=== PATIENT | male | born 1955 | race Caucasian/White ===

== ENCOUNTER 2023-07-23 07:40 | Outpatient (OUT) | payer MEDICARE, OTHER, SELFPAY ==
--- NOTE | 2023-07-23 08:25 | CA_ITS ---
Patient: EDIE POTTER Exam Date: 07/23/2023 : 1955 Gender:M Ordering : VIPUL CARVAJAL Admission #: [id number] Family : DR EDWARD KIMBROUGH . Order #: [id number] CLICK HERE TO VIEW EXAM ECHOCARDIOGRAM REPORT PROCEDURE: CA ECHO DOPPLER COMPLETE INDICATIONS: Diastolic heart failure, heart ablation, hypertension, diabetes COMPARISON: None. DESCRIPTION: COMPLETE ECHOCARDIOGRAM Real-time transthoracic echocardiography with 2D, M-mode, spectral and color flow Doppler performed. QUALITY: Technical quality was adequate. LEFT VENTRICLE: Normal chamber size. Mild concentric left ventricular hypertrophy. Normal systolic function. LV EF: Normal left ventricular ejection fraction, (>55%). DIASTOLIC: Diastolic function is indeterminate. ATRIAL SEPTUM: Visually appears intact. LEFT ATRIUM: Moderate dilatation. RIGHT ATRIUM: Mild dilatation. RIGHT VENTRICLE: Normal chamber size. Normal right ventricular systolic function. TRICUSPID VALVE: Normal mobility and thickness. No stenosis with trivial regurgitation. Unable to assess right-sided pressures due to lack of measurable tricuspid regurgitation. MITRAL VALVE: Normal mobility and thickness. No evidence of mitral valve stenosis. There is no mitral annular calcification. Mild mitral regurgitation. AORTIC VALVE: Normal trileaflet appearance. Normal leaflet mobility. No evidence of aortic valve stenosis. Focal calcification. Trivial aortic regurgitation. AORTIC ROOT: Normal diameter and appearance. PULMONIC VALVE: Not well visualized. No stenosis. Trivial regurgitation. PERICARDIUM: No evidence of pericardial effusion. IVC: Collapses with inspirations. IVC is dilated (2.4 cm) PLEURA: CONCLUSION: 1. Mild concentric left ventricular hypertrophy with normal systolic function. LVEF is 55 to 60%. 2. Normal right ventricular size with normal systolic function. 3. Mild to moderate biatrial dilatation. 4. Mild mitral regurgitation. 5. Unable to assess right-sided pressures due to lack of measurable tricuspid regurgitation. Adult Echocardiography Procedure Report Left Ventricle LVEDD (3.7 - 5.6 cm): 5.16 cm LVESD (2.2 - 4.0 cm): 3.16 cm LVIVS thickness (0.6 - 1.2 cm): 1.30 cm LVPW thickness (0.5 - 1.0 cm): 1.15 cm e': 0.10 m/s E - e': 8.65 LVOT Max Gradient: 1.78 mm[Hg] LVOT Area (cm2): 0.67 m/s Peak Velocity (LVOT): 0.67 m/s LVOT Diameter 2.66 cm Left Atrium LA Volume Index (2D A2C): 66.53 ml/m2 Left Atrium Systolic Dimension: 5.84 cm Mitral Valve MV E to A Ratio: 1.67 Mitral Valve A-Wave Peak Velocity: 0.49 m/s Mitral Valve E-Wave Peak Velocity: 0.83 m/s Right Ventricle Aorta AO Root Diam: 3.52 cm Ascending Ao Diam: 3.57 cm Aortic Valve AoV Area (Peak Luis Antonio): 3.89 cm2, 3.89 cm2 Peak Velocity(Antegrade Flow): 0.95 m/s Peak Gradient(Antegrade Flow): 3.63 mm[Hg] Tricuspid Valve Pulmonic Valve Peak Velocity: 0.91 m/s Peak Gradient: 3.09 mm[Hg], 3.48 mm[Hg] Right Atrium Right Atrium Systolic Pressure: 68.19 ml, 68.19 ml Dictated by: Benja Celis M.D. on 07/24/2023 at 18:04 Approved by: Benja Celis M.D. on 07/24/2023 at 18:07
== END 2023-07-23 07:41 | disposition home or self-care (01) ==
LOC: CARD 07:45
PROVIDERS: PCP Family Medicine; Visit Provider Internal Medicine Cardiovascular Disease
DX: I50.32 Chronic diastolic (congestive) heart failure (principal); I34.0 Nonrheumatic mitral (valve) insufficiency; I51.7 Cardiomegaly
CPT/HCPCS: 93306

== ENCOUNTER 2024-06-25 16:22 | Outpatient (OUT) | payer MEDICARE, OTHER, SELFPAY ==
[2024-06-25 16:50] LABS: Basophils Percent Auto 0.1 % (0.2-2.0); Eosinophils Absolute Auto 0.2 10^3/uL (0.0-0.7); Eosinophils Percent Auto 2.1 % (0.9-7.0); Hemoglobin 12.8 g/dL (14.0-18.0); Immature Granulocytes Abs Auto 0.01 10^3/uL (0.00-0.03); Immature Granulocytes Pct Auto 0.1 % (0.0-0.5); Lymphocytes Absolute Auto 1.5 10^3/uL (1.2-3.8); Lymphocytes Percent Auto 20.4 % (20.5-60.0); Mean Corpuscular HGB Conc 32.8 g/dL (29.9-35.2); Mean Corpuscular Hemoglobin 28.8 pg (25.9-34.0); Mean Corpuscular Volume 87.6 fL (80.0-94.0); Mean Platelet Volume 10.4 fL (9.5-13.5); Monocytes Absolute Auto 0.5 10^3/uL (0.3-0.8); Monocytes Percent Auto 7.6 % (1.7-12.0); Neutrophils Percent Auto 69.7 % (43.0-75.0); Platelet Count 179 10^3/uL (150-450); Red Blood Count 4.45 10^6/uL (4.70-6.10); Red Cell Distribution Width 13.2 % (11.0-15.0); White Blood Count 7.1 10^3/uL (4.0-11.0)
[2024-06-25 17:30] LABS: Anion Gap 8.2; BUN Creatinine Ratio 16.5; Carbon Dioxide 33.7 mmol/L (21.0-32.0); Chloride 103 mmol/L (98-107); Estimated GFR (African America >60 (>=60); Estimated GFR (Non-African Ame >60 (>=60); Glucose 116 mg/dL (74-106); Potassium 3.9 mmol/L (3.5-5.1); Sodium 141 mmol/L (136-145)
== END 2024-06-25 16:23 | disposition home or self-care (01) ==
PROVIDERS: PCP Family Medicine; Visit Provider Internal Medicine Cardiovascular Disease
DX: I48.0 Paroxysmal atrial fibrillation (principal)
CPT/HCPCS: 36415; 80048; 85025

== ENCOUNTER 2024-08-12 08:50 | Outpatient (OUT) | payer MEDICARE, OTHER, SELFPAY ==
--- NOTE | 2024-08-12 08:56 | CA_ITS ---
Patient Name: EDIE POTTER MR#: [id number] : 1955 Exam Date: 08/12/2024 Ordering Doctor: NGHIA AGGARWAL CNP ECHOCARDIOGRAM REPORT PROCEDURE: CA ECHO DOPPLER COMPLETE INDICATIONS: Atrial fibrillation/flutter COMPARISON: None. DESCRIPTION: COMPLETE ECHOCARDIOGRAM Real-time transthoracic echocardiography with 2D, M-mode, spectral and color flow Doppler performed. QUALITY: Technical quality was good. LEFT VENTRICLE: Normal chamber size. Mild concentric left ventricular hypertrophy. Global left ventricular systolic function is normal. LV EF: Estimated left ventricular ejection fraction is 60-65%. DIASTOLIC: Grade II diastolic dysfunction. ATRIAL SEPTUM: LEFT ATRIUM: Moderate dilatation. RIGHT ATRIUM: Mild dilatation. RIGHT VENTRICLE: Normal chamber size. Normal right ventricular systolic function. TRICUSPID VALVE: Normal mobility and thickness. No stenosis with trivial regurgitation. Mild pulmonary hypertension. RVSP 36 mmHg MITRAL VALVE: Normal mobility and thickness. No evidence of mitral valve stenosis. There is no mitral annular calcification. Mild mitral regurgitation. AORTIC VALVE: Normal trileaflet appearance. No visible sclerosis. Normal leaflet mobility. No evidence of aortic valve stenosis. Mild aortic regurgitation. AORTIC ROOT: Mild dilatation measuring 4.1 cm. The ascending aorta is dilated measuring 3.9 cm. PULMONIC VALVE: Normal thickness and mobility. No stenosis. Trivial regurgitation. PERICARDIUM: No evidence of pericardial effusion. IVC: Collapses with inspirations. Mild dilatation measuring 2.3cm. PLEURA: CONCLUSION: 1. Mild concentric left ventricular hypertrophy with normal systolic function. LVEF is 60 to 65%. 2. Normal right ventricular size and systolic function. 3. Grade 2 diastolic dysfunction. 4. Mild to moderate biatrial dilatation. 5. Mild mitral and aortic regurgitation. 6. Mildly elevated right-sided pressures. 7. Mildly dilated aortic root and ascending aorta. Adult Echocardiography Procedure Report Left Ventricle LVEDD (3.7 - 5.6 cm): 5.40 cm LVESD (2.2 - 4.0 cm): 3.88 cm LVIVS thickness (0.6 - 1.2 cm): 1.32 cm LVPW thickness (0.5 - 1.0 cm): 1.16 cm e': 0.09 m/s E - e': 11.10 LVOT Max Gradient: 3.46 mm[Hg] LVOT Area (cm2): 0.93 m/s Peak Velocity (LVOT): 0.93 m/s Mean Velocity (LVOT): 0.70 m/s LVOT Diameter 2.60 cm Left Ventricular Ejection Fraction: 60-65 % Left Atrium LA Volume Index (2D A2C): 63.57 ml/m2 Left Atrium Systolic Dimension: 5.01 cm Mitral Valve MV E to A Ratio: 1.72 Mitral Valve A-Wave Peak Velocity: 0.60 m/s Mitral Valve E-Wave Peak Velocity: 1.03 m/s Right Ventricle RV Internal Diastolic Dimension: 4.07 cm Aorta AO Root Diam: 4.09 cm Ascending Ao Diam: 3.88 cm Aortic Valve AoV Area (Peak Luis Antonio): 3.51 cm2, 3.51 cm2 AoV Area (VTI): 3.42 cm2, 3.42 cm2 Deceleration [place]: 1.69 m/s2 Pressure Half-Time: 609.88 ms Peak Velocity(Antegrade Flow): 1.40 m/s Peak Gradient(Antegrade Flow): 7.89 mm[Hg] Mean Velocity(Antegrade Flow): 0.99 m/s Mean Gradient(Antegrade Flow): 4.43 mm[Hg] Velocity Time Integral: 38.13 cm Tricuspid Valve Peak Velocity (Regurgitant Flow): 2.67 m/s, 2.49 m/s, 2.53 m/s Pulmonic Valve Mean Gradient: 2.42 mm[Hg], 1.64 mm[Hg] Mean Velocity: 0.73 m/s, 0.60 m/s Peak Velocity: 0.93 m/s Peak Gradient: 4.39 mm[Hg], 2.66 mm[Hg] Right Atrium Right Atrium Systolic Pressure: 85.45 ml, 85.45 ml Dictated by: Benja Celis M.D. on 08/12/2024 at 18:54 Approved by: Benja Celis M.D. on 08/12/2024 at 18:58
== END 2024-08-12 08:51 | disposition home or self-care (01) ==
LOC: CARD 08:52
PROVIDERS: PCP Family Medicine; Visit Provider Nurse Practitioner Family
DX: I48.0 Paroxysmal atrial fibrillation (principal)
CPT/HCPCS: 93306

== ENCOUNTER 2024-12-09 12:10 | Outpatient (OUT) | payer MEDICARE, OTHER, SELFPAY ==
--- OUTSIDE RECORDS SUMMARY | 2024-12-09 12:15 | XMS_ITS | CCD ---
Author Organization [facility] Inform ion Partnership [facility] Care Team Providers Care General Accountant Name Role Phone DEEP KIMBROUGH Referring Unavailable NORBERTO MEADOWS Admitting Unavailable NORBERTO MEADOWS Attending Unavailable DEEP KIMBROUGH Primary Care Unavailable LUIS E, DR LEON Primary Care Unavailable IVELISSE LAST Attending Unavailable IVELISSE LAST Admitting Unavailable LUIS E, DR LEON Admitting Unavailable LUIS E, DR LEON Attending Unavailable LUIS E, DR LEON Consulting Unavailable LUIS E, DR ELON Primary Care Unavailable Deep Kimbrough MD Unavailable [phone] Aston Nolasco DO Unavailable [phone] Nghia Ritter MD Unavailable Deep Kimbrough MD Primary Care Provider Deep Kimbrough MD Unavailable Deep Kimbrough MD Primary Care Provider [phone] Deep Kimbrough MD Unavailable [phone] Deep Kimbrough MD Primary Care Provider NORBERTO MEADOWS Referring Unavailable NORBERTO MEADOWS Referring Unavailable MIKY CHARLTON Attending Unavailable VIPUL CARVAJAL Attending Unavailable IVELISSE LAST Attending Unavailable NGHIA RITTER Attending Unavailable NORBERTO MEADOWS Attending Unavailable NORBERTO MEADOWS Attending Unavailable NORBERTO MEADOWS Admitting Unavailable Filemon Ugarte Attending Unavailable Filemon Ugarte Admitting Unavailable NO FAMILY, PHYSICIAN Primary Care Unavailable DEEP KIMBROUGH Attending Unavailable LEEANN BRIDGES Attending Unavailable DEEP KIMBRUOGH Attending Unavailable FILEMON ALVAREZ Attending Unavailable DEEP KIMBROUGH Referring Unavailable ASTON NOLASCO Attending Unavailable DEEP KIMBROUGH Attending Unavailable FILEMON ALVAREZ Attending Unavailable DEEP KIMBROUGH Attending Unavailable Medications Current Medications Medication Drug Class(es) Dates Sig (Normalized) Sig (Original) amLODIPine 10 mg oral tablet (17 sources) Dihydropyridine Calcium Channel Rui take 1 tablet by mouth once daily amLODIPine (Norvasc) 10 MG tablet Take 10 mg by mouth 1 (one) time each day at the same time. Active apixaban 5 mg oral tablet (17 sources) Factor Xa Inhibitor Start: 3 take 1 tablet by mouth in the morning Eliquis 5 MG tablet Take 5 mg by mouth in the morning and 5 mg before bedtime. 04/04/2023 Active cholecalciferol 0.25 mg oral capsule (17 sources) Vitamin D take 1 capsule by mouth in the morning cholecalciferol (Vitamin D-3) 250 MCG (91805 UT) capsule Take 1 capsule by mouth in the morning and 1 capsule before bedtime. Active Elastic Bandages & Supports ([employer] Firm Compression Socks) misc (17 sources) Start: 3 Elastic Bandages & Supports ([employer] Firm Compression Socks) misc Indications: Venous (peripheral) insufficiency Knee high, 20-30 mmHg Put on in AM and take off in PM daily. 4 each 1 09/17/2023 Active hydroCHLOROthiazide 25 mg / losartan potassium 100 mg oral tablet (17 sources) Thiazide Diuretic, Angiotensin 2 Receptor Rui Start: 3 take 1 tablet by mouth in the morning losartan-hydroCHLO ROthiazide (Hyzaar) 100-25 MG tablet Take 1 tablet by mouth in the morning. 04/03/2023 Active labetalol hydrochloride 200 mg oral tablet (17 sources) beta-Adrenergic Rui take 1 tablet by mouth every twelve hours labetalol (Normodyne) 200 MG tablet Take 200 mg by mouth every 12 (twelve) hours. Active Magnesium (17 sources) take 1 capsule by mouth once daily Magnesium 400 MG capsule Take 1 capsule by mouth 1 (one) time each day at the same time. Active Multiple Vitamin (multivitamin) capsule (17 sources) take 1 capsule by mouth once daily Multiple Vitamin (multivitamin) capsule Take 1 capsule by mouth 1 (one) time each day at the same time. Active rosuvastatin calcium 10 mg oral tablet (17 sources) HMG-CoA Reductase Inhibitor Start: take 1 tablet by mouth in the morning rosuvastatin (Crestor) 10 MG tablet Indications: Mixed dyslipidemia (CMS/HCC) Take 1 tablet (10 mg) by mouth in the morning. 90 tablet 3 05/29/2023 Active Completed/Discontinued Medications Medication Drug Class(es) Dates Sig (Normalized) Sig (Original) amiodarone hydrochloride 200 mg oral tablet (2 sources) Antiarrhythmic Start: 09-27-2024 End: 09-30-2024 take 1 tablet by mouth once daily amiodarone (Pacerone) 200 MG tablet Take 200 mg by mouth Daily 09/27/2024 09/30/2024 Discontinued (Therapy completed) Problems Active Problems Problem Classification Problem Date Documented Da te Episodic/Chronic Administrative/social admission (2 sources) Advance directive discussed with patient; Translations: [Other specified counseling] 10-20-2024 Episodic Cardiac dysrhythmias (20 sources) Chronic atrial fibrillation; Translations: [Chronic atrial fibrillation, unspecified] Onset: 05-22-2023 05-22-2023 Chronic Cataract (18 sources) Bilateral age-related nuclear cataracts; Translations: [Age-related nuclear cataract, bilateral] Onset: 08-18-2023 08-18-2023 Chronic Chronic kidney disease (20 sources) Chronic kidney disease stage 2; Translations: [Chronic kidney disease, stage 2 (mild)] Onset: 05-22-2023 05-22-2023 Chronic Conduction disorders (17 sources) Right bundle branch block; Translations: [Unspecified right bundle-branch block] Onset: 05-22-2023 05-22-2023 Chronic Congestive heart failure; nonhypertensive (20 sources) Chronic diastolic heart failure; Translations: [Chronic diastolic (congestive) heart failure] Onset: 01-06-2023 05-22-2023 Chronic Diabetes mellitus with complications (20 sources) Type 2 diabetes mellitus; Translations: [Type 2 diabetes mellitus with diabetic chronic kidney disease] Onset: 05-22-2023 09-21-2023 Chronic Diabetes mellitus without complication (20 sources) Diabetic on diet only; Translations: [Type 2 diabetes mellitus without complications] Onset: 08-18-2023 08-18-2023 Chronic Disorders of lipid metabolism (20 sources) Dyslipidemia; Translations: [Mixed hyperlipidemia] Onset: 12-28-2019 Resolved: 10-23-2023 05-22-2023 Chronic Essential hypertension (20 sources) Benign essential hypertension; Translations: [Essential (primary) hypertension] Onset: 01-06-2023 05-22-2023 Chronic Headache; including migraine (1 source) Headache; including migraine; Translations: [HEADACHE UNSPECIFIED] Onset: 02-22-2022 Heart valve disorders (20 sources) Aortic valve disorder; Translations: [Nonrheumatic aortic valve disorder, unspecified] Onset: 01-06-2023 05-22-2023 Chronic Hypertension with complications and secondary hypertension (20 sources) Hypertensive renal disease; Translations: [Hypertensive chronic kidney disease with stage 1 through stage 4 chronic kidney disease, or unspecified chronic kidney disease] Onset: 09-26-2015 05-22-2023 Chronic Nutritional deficiencies (17 sources) Vitamin D deficiency; Translations: [Vitamin D deficiency, unspecified] Onset: 05-22-2023 05-22-2023 Chronic Other aftercare (1 source) Encounter for follow-up examination after completed treatment for conditions other than malignant neoplasm; Translations: [Encounter for follow-up examination after completed treatment for conditions other than malignant neoplasm] Onset: 09-29-2024 Episodic Other and ill-defined heart disease (19 sources) Cardiomegaly; Translations: [Cardiomegaly] Onset: 05-22-2023 05-22-2023 Chronic Other and ill-defined heart disease (17 sources) Cardiomegaly; Translations: [Cardiomegaly] Onset: 09-26-2015 05-29-2023 Chronic Other nutritional; endocrine; and metabolic disorders (20 sources) Morbid obesity; Translations: [Morbid (severe) obesity due to excess calories] Onset: 05-22-2023 05-22-2023 Chronic Other nutritional; endocrine; and metabolic disorders (2 sources) Severe obesity; Translations: [Class 2 severe obesity with serious comorbidity and body mass index (BMI) of 39.0 to 39.9 in adult, unspecified obesity type (CMS/HCC)] 11-05-2024 Chronic Elizabeth-; endo-; and myocarditis; cardiomyopathy (except that caused by tuberculosis or sexually transmitted disease) (2 sources) Cardiomyopathy in diseases classified elsewhere; Translations: [Cardiomyopathy in diseases classified elsewhere] Onset: 06-23-2024 Chronic Pulmonary heart disease (20 sources) Pulmonary hypertension; Translations: [Pulmonary hypertension, unspecified] Onset: 01-06-2023 05-22-2023 Chronic Residual codes; unclassified (19 sources) 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; Translations: [Dependence on other enabling machines and devices] Onset: 05-22-2023 05-22-2023 Chronic Residual codes; unclassified (19 sources) Obstructive sleep apnea syndrome; Translations: [Obstructive sleep apnea (adult) (pediatric)] Onset: 05-22-2023 05-22-2023 Chronic Residual codes; unclassified (1 source) Pain, unspecified; Translations: [PAIN UNSPECIFIED] Onset: 02-22-2022 Episodic Unclassified (2 sources) CONTACT W/AND (SUSP) EXPOS COVID-19; Translations: [CONTACT W/AND (SUSP) EXPOS COVID-19] Onset: 02-22-2022 Unclassified (2 sources) Other persistent atrial fibrillation; Translations: [Other persistent atrial fibrillation] Onset: 01-06-2023 Viral infection (1 source) COVID-19; Translations: [COVID-19] Onset: 02-22-2022 Past or Other Problems Problem Classification Problem Date Documented Date Episodic/Chronic Blindness and vision defects (18 sources) Amblyopia of right eye; Translations: [Unspecified amblyopia, right eye] Onset: 08-18-2023 08-18-2023 Episodic Genitourinary symptoms and ill-defined conditions (19 sources) Microalbuminuria; Translations: [Proteinuria, unspecified] Onset: 05-22-2023 05-22-2023 Episodic Mood disorders (3 sources) Mood disorders Onset: 11-01-2024 11-01-2024 Other diseases of veins and lymphatics (17 sources) Peripheral venous insufficiency; Translations: [Venous insufficiency (chronic) (peripheral)] Onset: 05-22-2023 05-22-2023 Episodic Other diseases of veins and lymphatics (2 sources) Venous insufficiency (chronic) (peripheral); Translations: [Venous insufficiency (chronic) (peripheral)] Onset: 01-06-2023 Episodic Other eye disorders (18 sources) Dry eyes; Translations: [Dry eye syndrome of bilateral lacrimal glands] Onset: 08-18-2023 08-18-2023 Episodic Other non-epithelial cancer of skin (17 sources) History of malignant basal cell neoplasm of skin; Translations: [Personal history of other malignant neoplasm of skin] Onset: 01-06-2023 05-29-2023 Episodic Other nutritional; endocrine; and metabolic disorders (17 sources) Body mass index 30+ - obesity; Translations: [Body mass index (BMI) 37.0-37.9, adult] Onset: 10-23-2023 Resolved: 09-22-2024 10-23-2023 Chronic Other screening for suspected conditions (not mental disorders or infectious disease) (18 sources) Patient encounter status; Translations: [Encounter for screening for malignant neoplasm of colon] Onset: 08-25-2024 Resolved: 09-22-2024 08-25-2024 Episodic Other skin disorders (17 sources) Seborrheic keratosis; Translations: [Other seborrheic keratosis] Onset: 05-22-2023 05-22-2023 Episodic Residual codes; unclassified (16 sources) Family history of cancer of colon; Translations: [Family history of malignant neoplasm of digestive organs] Onset: 08-25-2024 08-25-2024 Episodic Unclassified (1 source) CONTACT W/AND (SUSP) EXPOS COVID-19; Translations: [CONTACT W/AND (SUSP) EXPOS COVID-19] Onset: 02-20-2022 Results Test Name Value Interpretation Reference Range [facility] 11-11-2024 Albumin [Mass/Vol] 4.3 g/dL Normal 3.6-5.1 [facility] Comment on above: Performed By: #### 4 , [id number] #### [facility] [address], [address] [place] [phone] Certified Lactation Educator: Trever Guillen MD #### [id number] #### [facility] [phone] Certified Lactation Educator: Krissy Pickens Albumin/Globulin [Mass ratio] 1.7 {ratio} Normal 1.0-2.5 [facility] Comment on above: Performed By: #### 4 , 6685 #### [facility] [place] [id number] [facility], [address] [place] [phone] Certified Lactation Educator: Trever Guillen MD #### [id number] #### [facility] [address] [place] [phone] Certified Lactation Educator: Krissy Pickens ALP [Catalytic activity/Vol] 73 U/L Normal 35-144 [facility] Comment on above: Performed By: #### 4 96, 0 #### [facility] [address], [address] [place] [address] Certified Lactation Educator: Trever Guillen MD #### [id number] #### [facility] [address] [place], [place] [phone] Certified Lactation Educator: Krissy Pickens ALT [Catalytic activity/Vol] 16 U/L Normal 9-46 [facility] Comment on above: Performed By: #### 4 , 0 #### [facility] [address], [address] [place] [address] Certified Lactation Educator: Trever Guillen MD #### [id number] #### [facility] [address] [place], [place] [phone] Certified Lactation Educator: Krissy Pickens AST [Catalytic activity/Vol] 15 U/L Normal 10-35 [facility] Comment on above: Performed By: #### 4 , 7599 #### [facility] [address], [address] [place] [address] Certified Lactation Educator: Trever Guillen MD #### [id number] #### [facility] [address] [place], [place] [phone] Certified Lactation Educator: Krissy Pickens Bilirubin [Mass/Vol] 0.8 mg/dL Normal 0.2-1.2 [facility] Comment on above: Performed By: #### 4 96, 0 #### [facility] [address], [address] [place] [address] Certified Lactation Educator: Trever Guillen MD #### [id number] #### [facility] [address] [place] [phone] Certified Lactation Educator: Krissy R Flati BUN/CREATININE RATIO SEE NOTE: Normal 6-22 [facility] Comment on above: Result Comment: Not Reported: BUN and Creatinine are within reference range. Performed By: #### 4 , 0 #### [facility] [address], [address] [place] [address] Certified Lactation Educator: Trever Guillne MD #### [id number] #### [facility] [address] [place] [address] Certified Lactation Educator: Krissy Parnell Flati Calcium [Mass/Vol] 9.0 mg/dL Normal 8.6-10.3 [facility] Comment on above: Performed By: #### 4 , 7599 #### [facility] [address], [address] [place] [address] Certified Lactation Educator: Trever Guillen MD #### [id number] #### [facility] [address] Certified Lactation Educator: Krissy R Flati Chloride [Moles/Vol] 105 mmol/L Normal 98-110 [facility] Comment on above: Performed By: #### 4 , 7599 #### [facility] [address], [address] [place] [address] Certified Lactation Educator: Trever Guillen MD #### [id number] #### [facility] [address] Certified Lactation Educator: Krissy Parnell Flati CO2 [Moles/Vol] 30 mmol/L Normal 20-32 [facility] Comment on above: Performed By: #### 4 , 0 #### [facility] [address], [address] [place] [address] Certified Lactation Educator: Trever Guillen MD #### [id number] #### [facility] [address] [place] [address] Certified Lactation Educator: Krissy Parnell Flati Creatinine [Mass/Vol] 0.99 mg/dL Normal 0.70-1.[address] [facility] Comment on above: Performed By: #### 4 96, 0 #### [facility] [address], [address] [place] [address] Certified Lactation Educator: Trever Guillen MD #### [id number] #### [facility] [address] [place] [phone] Certified Lactation Educator: Krissy Pickens GFR/1.73 sq M.predicted among non-blacks MDRD (S/P/Bld) [Vol rate/Area] 82 mL/min/{1.73_m2} Normal > OR = 60 [facility] Comment on above: Performed By: #### 4 , 7599 #### [facility] [address], [address] [place] [address] Certified Lactation Educator: Trever Guillen MD #### [id number] #### [facility] [address] Certified Lactation Educator: Krissy Pickens Globulin (S) [Mass/Vol] 2.5 g/dL Normal 1.9-3.7 [facility] Comment on above: Performed By: #### 4 , 7599 #### [facility] [address], [address] [place] [address] Certified Lactation Educator: Trever Guillen MD #### [id number] #### [facility] [phone] Certified Lactation Educator: Krissy Pickens Glucose [Mass/Vol] 140 mg/dL High 65-99 [facility] Comment on above: Result Comment: Fasting reference interval For someone without known diabetes, a glucose value >125 mg/dL indicates that they may have diabetes and this should be confirmed with a follow-up test. Performed By: #### 4 , 7599 #### [facility] [address], [address] [place] [address] Certified Lactation Educator: Trever Guillen MD #### [id number] #### [facility] [phone] Certified Lactation Educator: Krissy Pickens Potassium [Moles/Vol] 3.7 mmol/L Normal 3.5-5.[address] [facility] Comment on above: Performed By: #### 4 , 7599 #### [facility] [address], [address] [place] [address] Certified Lactation Educator: Trever Guillen MD #### [id number] #### [facility] [address] [place] [address] Certified Lactation Educator: Krissy Pickens Protein [Mass/Vol] 6.8 g/dL Normal 6.1-8.1 [facility] Comment on above: Performed By: #### 4 , 7599 #### [facility] [address], [address] [place] [address] Certified Lactation Educator: Trever Guillen MD #### [id number] #### [facility] [address] Certified Lactation Educator: Krissy Pickens Sodium [Moles/Vol] 143 mmol/L Normal 135-146 [facility] Comment on above: Performed By: #### 4 , 7599 #### [facility] [address], [address] [place] [address] Certified Lactation Educator: Trever Guillen MD #### [id number] #### [facility] [address] [place], [place] [phone] Certified Lactation Educator: Krissy Pickens Urea nitrogen [Mass/Vol] 16 mg/dL Normal 7-25 [facility] Comment on above: Performed By: #### 4 , 7599 #### [facility] [address], [address] [place] [address] Certified Lactation Educator: Trever Guillen MD #### [id number] #### [facility] [address] [place] [address] Certified Lactation Educator: Krissy Pickens HEMOGLOBIN A1con 11-11-2024 HEMOGLOBIN A1c 6.8 % of total Hgb High <5.7 [facility] Comment on above: Result Comment: For someone without known diabetes, a hemoglobin A1c value of 6.5% or greater indicates that they may have diabetes and this should be confirmed with a follow-up test. For someone with known diabetes, a value <7% indicates that their diabetes is well controlled and a value greater than or equal to 7% indicates suboptimal control. A1c targets should be individualized based on duration of diabetes, age, comorbid conditions, and other considerations. Currently, no consensus exists regarding use of hemoglobin A1c for diagnosis of diabetes for children. A duplicate report has been faxed to the following: Faxed to: [phone] on: 11/11/24 06:59 Performed By: #### 4 96, 0 #### [facility] [address], [address] [place] [address] Certified Lactation Educator: Trever Guillen MD #### [id number] #### [facility] [address] [place] [phone] Certified Lactation Educator: Krissy Pickens LIPID PANEL, [facility] 10-15 Cholesterol [Mass/Vol] 139 mg/dL Normal <200 [facility] Comment on above: Order Comment: FASTI NG:YES FASTING: YES Performed By: #### 4 , 7599 #### [facility] [address], [address] [place] [address] Certified Lactation Educator: Trever Guillen MD #### [id number] #### [facility] [address] [place], [place] [phone] Certified Lactation Educator: Krissy Pickens Cholesterol in HDL [Mass/Vol] 48 mg/dL Normal > OR = 40 [facility] Comment on above: Order Comment: FASTI NG:YES FASTING: YES Performed By: #### 4 , 0 #### [facility] [address], [address] [place] [address] Certified Lactation Educator: Trever Guillen MD #### [id number] #### [facility] [address] [place] [phone] Certified Lactation Educator: Krissy Pickens Cholesterol in LDL [Mass/Vol] 78 mg/dL Normal [facility] Comment on above: Order Comment: FASTI NG:YES FASTING: YES Result Comment: Refe rence range: <100 Desirable range <100 mg/dL for primary prevention; <70 mg/dL for patients with CHD or diabetic patients with > or = 2 CHD risk factors. LDL-C is now calculated using the Americo calculation, which is a validated novel method providing better accuracy than the Friedewald equation in the estimation of LDL-C. Ten KINGSLEY et al. TERRY. 2013;310(19): 3601-9459 (http://education.[employer]/faq/BZV800) Performed By: #### 4 , 0 #### [facility] [address], [address] [place] [address] Certified Lactation Educator: Trever Guillen MD #### [id number] #### [facility] [address] [place] [address] Certified Lactation Educator: Krissy Pickens Cholesterol.total/Chol esterol in HDL [Mass ratio] 2.9 {ratio} Normal <5.0 [facility] Comment on above: Order Comment: FASTI NG:YES FASTING: YES Performed By: #### 4 , 0 #### [facility] [address], [address] [place] [address] Certified Lactation Educator: Trever Guileln MD #### [id number] #### [place] [address] Certified Lactation Educator: Krissy Pickens NON HDL CHOLESTEROL 91 mg/dL (calc) Normal <130 [facility] Comment on above: Order Comment: FASTI NG:YES FASTING: YES Result Comment: For patients with diabetes plus 1 major ASCVD risk factor, treating to a non-HDL-C goal of <100 mg/dL (LDL-C of <70 mg/dL) is considered a therapeutic option. Performed By: #### 4 , 0 #### [facility] [address], [address] [place] [address] Certified Lactation Educator: Trever Guillen MD #### [id number] #### [facility] [address] [place] [phone] Certified Lactation Educator: Krissy Pickens Triglyceride [Mass/Vol] 57 mg/dL Normal <150 [facility] Comment on above: Order Comment: FASTI NG:YES FASTING: YES Performed By: #### 4 96, 1650 #### [facility] [address], [address] [place] [address] Certified Lactation Educator: Trever Guillen MD #### [id number] #### [facility] [address] [place] [address] Certified Lactation Educator: Krissy Pickens Office Visiton 10-18-2024 Follow-up visit [id number] Jj Sky 1955 M Date Provider Department Center 10/18/2024 [id number] CHARLTON Family History Problem Relation Age of Onset Other Mother Coronary artery disease Father Atrial fibrillation Sister Atrial fibrillation Brother Family Status - Relation Status Age at Mother Father Sister Brother Level of Service:14688 CT OFFICE/OUTPATIENT ESTABLISHED MOD [facility] 30 MIN Reason for Visit and Comments: Hypertension [480045] - He saw Dr. Meadows last month and told him he may increase labetalol to 400mg bid IF BP log reveals elevated BP's. He has not made the increase as he wanted to check with the doctor first. Atrial Fibrillation [80] - He remains asymptomatic, denies chest pain, SOB, palpitations, lightheadedness/syn cope, and bleeding on Eliquis. Normal [facility] PATHOLOGY REQUEST FOR LAB CO RPon 10-12-2024 PATHOLOGY REQUEST FOR LAB BRUNO [facility] Comment on above: See report. Scanned copy available in EMR. PATHOLOGY GI SPECIMEN [facility] Pathology Request for Lab Co rpon 09-29-2024 Pathology Request for Lab Bruno Normal [facility] Comment on above: Order Comment: PATHO LOGY GI SPECIMEN Result Comment: See report. Scanned copy available in EMR. PERFORMED BY: [address] [id number] PATHOLOGIST PRODUCT SALES ENGINEER DOMINIQUE TANG M.D. Performed By: #### P ATH TO [facility] #### [address] [address] Office Visiton 09-28-2024 Follow-up visit [id number] Howe 1955 M Date Provider Department Center 09/28/2024 NORBERTO HARRIS LEIGH Win Family History Problem Relation Age of Onset Other Mother Coronary artery disease Father Atrial fibrillation Sister Atrial fibrillation Brother Family Status - Relation Status Age at Mother Father Sister Brother Level of Service:37477 CT OFFICE/OUTPATIENT NEW MODERATE MDM 45 MINUTES [facility] 36on 08-27-2024 [address] Ugarte' office. [facility] 36on 08-26-2024 36 Okay to hold Eliquis 2 days prior to colonscopy. Thanks [facility] [address] Dr. Ugarte of [facility] general surgery is requesting clearance for patient to hold Eliquis prior to colonoscopy. Please advise. Thanks. [facility] Office Visiton 08-04-2024 Follow-up visit [id number] Howe 1955 M Date Provider Department Center 08/04/2024 NGHIA YANG LEIGH Win Family History Problem Relation Age of Onset Other Mother Coronary artery disease Father Atrial fibrillation Sister Atrial fibrillation Brother Family Status - Relation Status Age at Mother Father Sister Brother Level of Service:46942 CT OFFICE/OUTPATIENT ESTABLISHED MOD MDM 30 MIN Reason for Visit and Comments: Atrial Fibrillation [80] Hypertension [496175] Hyperlipidemia [182] [facility] HPon 06-30-2024 HPI: Jj Sky is a 69 y.o. male here for DCCV HPI 69 year old male patient with past medical history including PAF s/p ablation by Dr. Meadows, HTN, IVONE compliant with cpap, and hyperlipidemia seen in follow-up. Pt states that he had COVID at the beginning of May, felt like he was feeling out of rhythm while checking his pulse. Reviewed at home blood pressure readings and HR, well controlled. Will send him for cardioversion at [facility]. Currently denied chest pain, SOB, Orthopnea, or palpitations. States that he has fully recovered from Covid illness Pt is here for a six month follow up. Pt has HTN, HLD, and paroxysmal afib. Pt denies sob, chest pain, Palpations. Review of Systems Cardiovascular: Negative for syncope. Musculoskeletal: Positive for joint pain. All other systems reviewed and are negativ Visit Vitals BP 145/75 Pulse 77 Resp 18 SpO2 97% Smoking Status Never No Known Allergies Medications: No current facility-administer ed medications on file prior to encounter. Current Outpatient Medications on File Prior to Encounter Medication Sig Dispense Refill amLODIPine (Norvasc) 10 mg tablet Take 1 tablet (10 mg) by mouth in the morning. 90 tablet 3 apixaban (Eliquis) 5 mg tablet Take 1 tablet (5 mg) by mouth in the morning and at bedtime. 180 tablet 3 cholecalciferol, vitamin D3, 250 mcg (10,000 unit) capsule Take 1 capsule by mouth twice a day. hydroCHLOROthiazide (HYDRODiuril) 25 mg tablet Take 25 mg by mouth in the morning. labetalol (Normodyne) 200 mg tablet Take 1 tablet (200 mg) by mouth in the morning and at bedtime. 180 tablet 3 losartan-hydrochlor othiazide (Hyzaar) 100-25 mg tablet Take 1 tablet by mouth in the morning. 90 tablet 3 magnesium oxide,aspartate,cit r (Triple Magnesium Complex) 400 mg magnesium capsule Take 1 capsule by mouth. rosuvastatin (Crestor) 10 mg tablet Take 1 tablet (10 mg) by mouth at bedtime. 90 tablet 3 Physical Exam: Constitutional: Appearance: Normal appearance, obese. Without apparent distress HENT: Head: Normocephalic and atraumatic. Nose: Nose normal. Mouth/Throat: Mouth: Mucous membranes are moist. Eyes: Extraocular Movements: Extraocular movements intact. Conjunctiva/sclera: Conjunctivae normal. Neck: Vascular: No JVD. Cardiovascular: Rate and Rhythm: Normal rate, irregular rhythm. Pulses: Radial pulses are 2+ b/l, irregular. Heart sounds: Normal heart sounds, S1 normal and S2 normal. Pulmonary: Effort: Pulmonary effort is normal. Breath sounds: Normal breath sounds. Abdominal: General: Bowel sounds are normal. Palpations: Abdomen is soft. Musculoskeletal: General: Normal range of motion. Cervical back: Normal range of motion. Right lower leg: No edema. Left lower leg: No edema. Skin: General: Skin is warm and dry. Capillary Refill: Capillary refill takes less than 2 seconds. Neurological: General: No focal deficit present. Mental Status: he is alert and oriented to person, place, and time. Psychiatric: Mood and Affect: Mood normal. Behavior: Behavior normal. Thought Content: Thought content normal. Judgment: Judgment normal. Labs: 12/26/23 Chol 164, Trig 89, HDL 49, LDL 97- BUN 17, Sodium CR 1.00 GFR 82- normal NA 140, K+ 3.7 normal ALP 75, AST 19, ALT 17- normal CBC normal 41, potassium 3.9, chloride 103, CO2 31, BUN 20, creatinine 1 GFR 82% 11/19/2022 Sodium 141, potassium 3.9, chloride 105, CO2 30, BUN 14, serum creatinine 0.89, EGFR 94% Lipid profile: 12/05/2021 Total cholesterol 205, triglycerides 53, HDL 48, LDL 146 Imaging and other tests EKG today 06/23/24 A fib/flutter with variable AV block- EKG sent to Dr Meadows and D/W him about plan for cardioversion 08/07/23- Echo A-fib ablation: 08/17/2020 Stress test: 05/05/2019 Myocardial perfusion shows no evidence of ischemia. Myocardial perfusion is normal. There is no reversible or fixed defect at rest or stress. LVEF is 56%. No wall motion abnormality. No 3 times daily. The Tomas score (0) estimates an annual cardiovascular mortality of 1% and 5-year survival of 92% using the Tomas score there is intermediate probability of angiographic coronary disease. No ECG changes seen in patient with abnormal pretest ECG. Echo: 04/13/2019 Global left ventricular systolic function is normal (visually estimated EF 60%) The left ventricle is normal in size Left ventricle wall thickness is normal No regional wall motion abnormality Unable to assess diastolic dysfunction Normal right ventricular systolic function The right ventricle is normal in size The right atrium is moderately enlarged Unable to assess right-sided pressures due to lack of measurable tricuspid regurgitation Assessment/Plan: Mixed hyperlipidemia Lipid abnormalities are stable and well controlled Continue crestor Mild concentric left ventricular hypertrophy (LVH) Stable without concerning symptoms Thony (more content not included)... Normal [facility] NURSNOTEon 06-30-2024 NURSNOTE RN educated pt on d/c instructions. RN provided pt with arm sling and educated pt on importance of not using arm for 24 hours for radial sites and limited physical activity for femoral sites. RN encouraged pt to voice any questions or concerns. Pt verbalizes no questions or concerns at this time. Pt was wheeled off of unit with all of belongings. Normal [facility] ALL CBC WITH AUTO DIFFon BASOPHILS ABSOLUTE AUTO 0.0 [facility] Basophils/100 WBC (Bld) 0.1 % Low 0.2 - 2.0 % [facility] Eosinophils/100 WBC (Bld) 2.1 % 0.9 - 7.0 % [facility] Erythrocyte distribution width (RBC) [Ratio] 13.2 % 11.0 - 15.0 % [facility] Hematocrit (Bld) [Volume fraction] 39.0 % Low 42.0 - 54.0 % [facility] Hemoglobin (Bld) [Mass/Vol] 12.8 g/dL Low 14.0 - 18.0 g/dL [facility] IMMATURE GRANULOCYTES ABS AUTO 0.01 [facility] Immature granulocytes/100 WBC (Bld) 0.1 % 0.0 - 0.5 % [facility] Interpretation and review of laboratory results Abnormal [facility] LYMPHOCYTES ABSOLUTE AUTO 1.5 [facility] Lymphocytes/100 WBC (Bld) 20.4 % Low 20.5 - 60.0 % [facility] MCH (RBC) [Entitic mass] 28.8 pg 25.9 - 34.0 pg [facility] MCHC (RBC) [Mass/Vol] 32.8 g/dL 29.9 - 35.2 g/dL [facility] MCV (RBC) [Entitic vol] 87.6 fL 80.0 - 94.0 fL [facility] MONOCYTES ABSOLUTE AUTO 0.5 [facility] Monocytes/100 WBC (Bld) 7.6 % 1.7 - 12.0 % [facility] NEUTROPHILS ABSOLUTE AUTO 5.0 [facility] Neutrophils/100 WBC (Bld) 69.7 % 43.0 - 75.0 % [facility] Platelet mean volume (Bld) [Entitic vol] 10.4 fL 9.5 - 13.5 fL [facility] TBH EO # 0.2 [facility] TBH PLT 179 [facility] TB RBC 4.45 Low [facility] TB WBC 7.1 [facility] Orders Onlyon 06-25-2024 Orders Only [id number] Jj Sky 1955 M Date Provider Department Center 06/25/2024 VenitaCatherineAALIYAH CHURCHILL [facility] V[facility] Family History Problem Relation Age of Onset Other Mother Coronary artery disease Father Atrial fibrillation Sister Atrial fibrillation Brother Family Status - Relation Status Age at Mother Father Sister Brother Normal [facility] Office Visiton 06-23-2024 Follow-up visit [id number] Jj Sky 1955 M Date Provider Department Center 06/23/2024 IVELISSE ECHOLS LEIGH [facility] Family History Problem Relation Age of Onset Other Mother Coronary artery disease Father Atrial fibrillation Sister Atrial fibrillation Brother Family Status - Relation Status Age at Mother Father Sister Brother Level of Service:62274 CT OFFICE/OUTPATIENT ESTABLISHED MOD MDM 30 MIN Reason for Visit and Comments: Follow-up [708496] Normal [facility] Office Visiton 01-02-2024 Follow-up visit [id number] Jj Sky 1955 M Date Provider Department Center 01/02/2024 Pramod8-VIPUL CARVAJAL LEIGH [facility] Family History Problem Relation Age of Onset Other Mother Coronary artery disease Father Atrial fibrillation Sister Atrial fibrillation Brother Family Status - Relation Status Age at Mother Father Sister Brother Level of Service:32297 CT OFFICE/OUTPATIENT ESTABLISHED LOW MDM 20 MIN [facility] SARS-CoV-2 (COVID-19) RNA MIMI+probe Ql (Unsp spec) Detected Critically abnormal NOT DETECTED [facility] Comment on above: Result Comment: This test is not yet approved or cleared by the [place] FDA. When there are no FDA-approved or cleared tests available, and other criteria are met, FDA can make tests available under an emergency access mechanism called an Emergency Use Authorization (EUA). The EUA for this test is supported by the [place] Worker of Health and Human Service's (HHS's) declaration that circumstances exist to justify the emergency use of in vitro diagnostics for the detection and/or diagnosis of the virus that causes COVID-19. This EUA will remain in effect (meaning this test can be used) for the duration of the COVID-19 declaration justifying emergency of IVDs, unless it is terminated or revoked by FDA (after which the test may no longer be used). Performed By: #### C VDTB #### [facility] [address] [place] [address] Dr. Alex Rosa [facility] Metabolic Pane [facility] 02-11-2022 Albumin [Mass/Vol] 4.7 g/dL Normal 3.6-5.1 [facility] Specialist Comment on above: Performed By: #### L IPD, CMP #### [facility] [address], [place] [id number] Albumin/Globulin [Mass ratio] 2.1 {ratio} Normal 1.0-2.5 [facility] Comment on above: Performed By: #### L IPD, CMP #### [facility] [address], [place] [id number] ALP [Catalytic activity/Vol] 95 U/L Normal 40-129 [facility] Comment on above: Performed By: #### L IPD, CMP #### [facility] [address], [place] [id number] ALT [Catalytic activity/Vol] 17 U/L Normal 9-46 [facility] Comment on above: Result Comment: 09/12 Female reference range changed. Performed By: #### L IPD, CMP #### [facility] [address], [place] [id number] Anion gap [Moles/Vol] 14 mmol/L Normal 12-20 [facility] Comment on above: Result Comment: Effe ctive 10/18/2019 reference range changed. Performed By: #### L IPD, CMP #### [facility] [address], [place] [id number] AST [Catalytic activity/Vol] 18 U/L Normal 10-40 [facility] Comment on above: Performed By: #### L IPD, CMP #### [facility] [address], [place] [id number] Bilirubin [Mass/Vol] 0.66 mg/dL Normal 0.30-1.20 [facility] Comment on above: Performed By: #### L IPD, CMP #### [facility] [address], [place] [id number] BUN/CREA 21 Ratio Normal 6-22 [facility] Specialist Comment on above: Performed By: #### L IPD, CMP #### [facility] [address], [place] [id number] Calcium [Mass/Vol] 9.2 mg/dL Normal 8.6-10.2 Kelly gonzáles [place] [employer] Comment on above: Performed By: #### L IPD, CMP #### [facility] [address], [place] [id number] Chloride [Moles/Vol] 104 mmol/L Normal 98-107 [facility] Comment on above: Performed By: #### L IPD, CMP #### [facility] [address], [place] [id number] CO2 [Moles/Vol] 29 mmol/L Normal 20-31 [facility] Specialist Comment on above: Performed By: #### L IPD, CMP #### [facility] [address], [place] [id number] Creatinine [Mass/Vol] 1.0 mg/dL Normal 0.7-1.4 [facility] Comment on above: Performed By: #### L IPD, CMP #### [facility] [address], [place] [id number] eGFRAA 86 mL/min/1.73m2 Normal >60 [facility] Specialist Comment on above: Performed By: #### L IPD, CMP #### [facility] [address], [place] [id number] eGFRNAA 71 mL/min/1.73m2 Normal >60 [facility] Specialist Comment on above: Performed By: #### L IPD, CMP #### [facility] [address], [place] [id number] Globulin (S) [Mass/Vol] 2.2 g/dL Normal 1.9-3.7 [facility] Specialist Comment on above: Performed By: #### L IPD, CMP #### [facility] [address], [place] [id number] Glucose [Mass/Vol] 128 mg/dL High 65-99 Kelly gonzáles [place] [employer] Comment on above: Result Comment: For FASTING Glucose --- ADA reference ranges: Normal 65-99 mg/dl Prediabetes 100-125 Diabetes >/= 126 Performed By: #### L IPD, CMP #### [facility] [address], [place] [id number] Potassium [Moles/Vol] 4.0 mmol/L Normal 3.5-5.5 [facility] Comment on above: Performed By: #### L IPD, CMP #### [facility] [address], [place] [id number] Protein [Mass/Vol] 6.9 g/dL Normal 6.1-8.1 [facility] [employer] Comment on above: Performed By: #### L IPD, CMP #### [facility] [address], [place] [id number] Sodium [Moles/Vol] 143 mmol/L Normal 135-146 [facility] [employer] Comment on above: Performed By: #### L IPD, CMP #### [facility] [address], [place] [id number] Urea nitrogen [Mass/Vol] 21 mg/dL Normal 7-25 [facility] Specialist Comment on above: Performed By: #### L IPD, CMP #### [facility] [address], [place] [id number] Lipid Panelon 02-11-2022 Cholesterol [Mass/Vol] 149 mg/dL Normal 125-200 No [facility] Comment on above: Result Comment: Low risk < 200mg/dL Borderline risk 201-239 mg/dl High risk > or equal to 240 Performed By: #### L IPD, CMP #### [facility] [address], [place] [id number] Cholesterol in HDL [Mass/Vol] 49 mg/dL Normal >40 [facility] Specialist Comment on above: Result Comment: High Cardiovascular Risk HDL <40 mg/dL Low Cardiovascular Risk HDL > or equal to 60 mg/dl Performed By: #### L IPD, CMP #### [facility] [address], [place] [id number] Cholesterol in LDL [Mass/Vol] 90 mg/dL Normal [facility] [employer] Comment on above: Result Comment: LDL ATP III CLASSIFICATION LDL less than 100 mg/dl Optimal LDL 100-129 mg/dl Near or above optimal LDL 130-159 Borderline high LDL 160-189 High LDL greater than 189 mg/dl Very High Performed By: #### L IPD, CMP #### [facility] [address], [place] [id number] Cholesterol in VLDL [Mass/Vol] 10 mg/dL Normal [facility] Comment on above: Performed By: #### L IPD, CMP #### [facility] [address], [place] [id number] Cholesterol.total/Chol esterol in HDL [Mass ratio] 3 {ratio} Normal [facility] Specialist Comment on above: Performed By: #### L IPD, CMP #### [facility] [address], [place] [id number] Triglyceride [Mass/Vol] 52 mg/dL Normal 30-150 [facility] [employer] Comment on above: Result Comment: TRIG ATPIII CLASSIFICATIONS TRIG less than 150 mg/dl Normal TRIG 150-199 mg/dl Borderline High TRIG 200-500 mg/dl High TRIG greather than 500 mg/dl Very High Performed By: #### L IPD, CMP #### [facility] [address], [place] [id number] Hemoglobin A1Con 12-05-2021 EAG 125.50 Normal [facility] Comment on above: Performed By: #### A 1C #### [facility] [address], [place] [id number] HbA1c (Bld) [Mass fraction] 6.0 % Normal 4.0-6.0 [facility] Comment on above: Performed By: #### A 1C #### [facility] [address], [place] [id number] Lipid Panelon 12-05-2021 Cholesterol [Mass/Vol] 205 mg/dL High 125-200 [facility] Comment on above: Result Comment: Low risk < 200mg/dL Borderline risk 201-239 mg/dl High risk > or equal to 240 Performed By: #### L IPD #### [facility] [address], [place] [id number] Cholesterol in HDL [Mass/Vol] 48 mg/dL Normal >40 [facility] [employer] Comment on above: Result Comment: High Cardiovascular Risk HDL <40 mg/dL Low Cardiovascular Risk HDL > or equal to 60 mg/dl Performed By: #### L IPD #### [facility] [address], [place] [id number] Cholesterol in LDL [Mass/Vol] 146 mg/dL Normal [facility] Specialist Comment on above: Result Comment: LDL ATP III CLASSIFICATION LDL less than 100 mg/dl Optimal LDL 100-129 mg/dl Near or above optimal LDL 130-159 Borderline high LDL 160-189 High LDL greater than 189 mg/dl Very High Performed By: #### L IPD #### [facility] [address], [place] [id number] Cholesterol in VLDL [Mass/Vol] 11 mg/dL Normal [facility] Specialist Comment on above: Performed By: #### L IPD #### [facility] [address], [place] [id number] Cholesterol.total/Chol esterol in HDL [Mass ratio] 4 {ratio} Normal [facility] Specialist Comment on above: Performed By: #### L IPD #### [facility] [address], [place] [id number] Triglyceride [Mass/Vol] 53 mg/dL Normal 30-150 [facility] Specialist Comment on above: Result Comment: TRIG ATPIII CLASSIFICATIONS TRIG less than 150 mg/dl Normal TRIG 150-199 mg/dl Borderline High TRIG 200-500 mg/dl High TRIG greather than 500 mg/dl Very High Performed By: #### L IPD #### [facility] [address], [place] [id number] Consent for COVID Vaccineon 01-13-2021 SARS-CoV-2 (COVID-19) RNA MIMI+probe Ql (Unsp spec) [id number] 625#1.00CD:127 Normal [facility] Consent for COVID Vaccineon 12-10-2020 SARS-CoV-2 (COVID-19) RNA MIMI+probe Ql (Unsp spec) [id number] 124#1.00CD:127 [facility] Consent for Treatmenton 11-14 Consent for Treatment [id number] 219#1.00CD:127 Normal [facility] Coding Summary.on 12-06-2020 Coding Summary. CODING DATE: 12/06/2020 FINAL [facility] STATUS: PAYOR: Tiffanie APC DESCRIPTION [employer] - Level 1B ($11-$20) ADMIT DX: REASON FOR VISIT DX: Z23 Encounter for immunization FINAL DX: PRINCIPAL: Z23 Encounter for immunization SECONDARY: PYMT PROC APC STAT DESCRIPTION DOCTOR NAME DATE NOTE: The code number assigned matches the documented diagnosis and / or procedure in the patient's chart. However, the narrative phrase printed from the coding software may appear abbreviated, or result in slightly different terminology. Coded By: Prisca Aguilar CphT Date Saved: 12/06/2020 09:26 am Normal [facility] *MRSA/MSSA CULTUREon 020 *MRSA/MSSA CULTURE Clinical Report: (D) Specimen: NASAL SWAB Collected: 08/17/2020 07:15 Status: Final Last Updated: 08/18/2020 08:48 ISO (Final) No Methicillin Resistant Staphylococcus aureus Isolated (MRSA) ISO (Final) No Methicillin Sensitive Staphylococcus aureus Isolated (MSSA) Normal [facility] Comment on above: Performed By: #### 3 1302 #### [address] Cardiovascular Lab Reporton 08-17-2020 Cardiovascular Lab Report [facility] Patient Name: [facility] MR #: [id number] Physician: Norberto Meadows MD Department of Service Date: 08/17/2020 Medicine Birthdate: 1955 Division of Room #: [facility] Cardiology Adult Cardiovascular Services [place] [address] Cardiovascular Laboratory Report ATRIAL FIBRILLATION ABLATION PROCEDURE NOTE DATE OF PROCEDURE: 08/17/2020 PERFORMING PHYSICIAN: Dr. Norberto Meadows CONSENT: Patient NAME OF THE PROCEDURE: Pulmonary Vein Isolation and Comprehensive EP study. INDICATIONS FOR PROCEDURE: 1. Persistent atrial fibrillation non responsive to pharmacologic therapy. PROCEDURES PERFORMED: 1. Sonosite guided venous access as noted below and images stored in PACS. 2. Comprehensive EP study and catheter ablation for persistent atrial fibrillation through the pulmonary vein isolation technique. This includes right atrial recording and pacing, His bundle recording and right ventricular recording and pacing. 3. Intracardiac EP 3D mapping. 4. Intracardiac echocardiogram 5. Left atrial and coronary sinus recording and pacing to assess ablation results. 6. Left heart pressure measurements and LV pacing and recording. 7. Induction of arrhythmia and testing of ablation results using intravenous adenosine infusion. 8. Fluroscopy. FLUOROSCOPY: 4min 43s/ 70mGray PROCEDURE NOTE: Risks, benefits and alternatives of the procedure were discussed with the patient and family who agreed to proceed. Please refer to my consult note for details of the discussion and of indications. The patient was brought to the EP lab and a procedural pause was performed identifying the patient, the procedure. The patient presented in SR and so YOLANDA was performed to rule out SUZETTE clot. ICE imaging was used to rule out SUZETTE clot. Both the groins were then prepared and draped. Ultrasound was used to determine the course and patency of the femoral veins on both sides and they were noted to be patent and the image stored in Merge. After infiltration with 1% lidocaine, 4 venous sheaths were placed in the right as left femoral vein access was limited due to the arterial puncture. A radial arterial line was placed by Anesthesia team. RFV: 8Fx4 [employer] Thermo[employer] SF Bi-Directional over SL1/ Vizigo, SL1:Pentaray, ICE catheter. CS Catheter (EZ Steer) Heparin bolus was given followed by continuous intravenous drip to target ACT around 350. An intracardiac ultrasound catheter was inserted into the right atrium to examine the right atrial anatomy, atrial septum, pulmonary vein anatomy and to monitor for pericardial effusion and guide transseptal access. At baseline, there was no pericardial effusion and no SUZETTE clot but the anatomy suggested a rotated heart. LA was noted to be mildly enlarged. Esophagus was mapped using the [employer] 3D mapping software and noted to be towards the left side veins. There was a significant lipomatous hypertrophy with a very small area of IAS that was thin. Double transseptal access technique was used to cross to the left side. Following the first transeptal access, which was achieved via puncture of the thinner aspect of the septum using Rizwan needle, Pentaray catheter was placed in the left atrium. Mean LA pressures were noted to 13/2mmHg (Mean 10) at baseline and with 600ms pacing it was 15/2 mmHg (mean 10mmHg) and 400ms pacing there was 2:1 block and at 500ms pacing it was 20/11mmHg (mean 13mmHg). LV pacing revealed concentric VA conduction. A second transseptal access was then achieved. With repeat access, SL1 sheath was exchanged over a wire to 8.5F Vizigo sheath. Pulmonary vein and left atrial anatomic mapping was performed using a 3-D [employer] computer-based mapping system. Identification of the pulmonary vein ostia was assisted by the left atrial signals on the ablation catheter, the ICE catheter and the Pentaray catheter placed in the individual pulmonary veins. There was a separate ostium on the left and separate on the right side. There was signals noted in all the veins. A temperature probe was placed in the esophagus to monitor and avoid rise of temperature by more than a degree celsius. This was noted to lay in a slanted way with superiorly close to LSPV and inferiorly close to RIPV. Wide area circumferential ablation technique (WACA) was then performed. Power settings were 30watts in the anterior aspect of WACA and 25-30W while ablating on the posterior wall as well as the roof. Following left WACA, entrance block was observed. Right sided PVI was then performed using a WACA approach with care to pace the anterior aspect of WACA and colleen to ensure there was no phrenic capture. There was notable phrenic capture on the right colleen area. Upon completion of the right sided WACA, entrance block was not seen and the earliest signal was c (more content not included)... Normal [facility] POC GLUCOSE LABon 08-17-2020 Glucose [Mass/Vol] 126 mg/dL High 70-100 [facility] Comment on above: Performed By: #### [id number] #### [address] Dermatopathologyon 0 Dermatopathology Pathologist: ABELARDO UNGER MD Date of Procedure: 12/13/2019 Date Received: 12/15/2019 Date Reported 12/16/2019 Submitting Physician: LEEANN PUENTE MD Location: [facility] FINAL DIAGNOSIS SKIN, GLABELLA, BIOPSY: VERRUCOUS KERATOSIS, PRESENT ON THE DEEP AND PERIPHERAL MARGIN. Electronically Signed Out by ABELARDO UNGER M.D. 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 Clinical History: 0.8 x 0.5 cm. SCC vs. Verruca. Biopsy. Specimens Submitted As: A: SKIN, GLABELLA Gross Description: Received in formalin is one zepeda-brown piece of skin measuring [id number]. The specimen is inked and embedded in toto. dcp/12/15/2019 Normal [facility] Comment on above: Performed By: #### D #### Dermatopathology Vital Signs Date Time Vital Sign Value Performing Clinician Faci lity 11-01-2024 16:24-0500 Body height 177.8 cm Deep Kimbrough MD Work Phone: [facility] 11-01-2024 16:24-0500 Body mass index (BMI) [Ratio] 39.17 kg/m2 Deep Kimbrough MD Work Phone: [facility] 11-01-2024 16:24-0500 Body weight 123.83 kg Deep Kimbrough MD Work Phone: [facility] 09-30-2024 08:24-0500 Body height 177.8 cm Deep Kimbrough MD Work Phone: [facility] 09-30-2024 08:24-0500 Body mass index (BMI) [Ratio] 38.74 kg/m2 Deep Kimbrough MD Work Phone: [facility] 09-30-2024 08:24-0500 Body weight 122.47 kg Deep Kimbrough MD Work Phone: [facility] 09-30-2024 08:24-0500 Heart rate 54 /min Deep Kimbrough MD Work Phone: [facility] 09-30-2024 08:24-0500 SaO2% (BldA) [Mass fraction] 97 % Deep Kimbrough MD Work Phone: [facility] 08-25-2024 10:15-0500 Body height 177.8 cm Filemon Erazo MD Work Phone: [facility] 08-25-2024 10:15-0500 Body mass index (BMI) [Ratio] 38.74 kg/m2 Filemon Erazo MD Work Phone: [facility] 08-25-2024 10:15-0500 Body weight 122.47 kg Filemon Erazo MD Work Phone: [facility] 08-25-2024 10:15-0500 Diastolic blood pressure 74 mm[Hg] Filemon Erazo MD Work Phone: [facility] 08-25-2024 10:15-0500 Systolic blood pressure 132 mm[Hg] Filemon Erazo MD Work Phone: [facility] 06-03-2024 08:45-0400 Body height 177.8 cm Deep Kimbrough MD Work Phone: [facility] 06-03-2024 08:45-0400 Body mass index (BMI) [Ratio] 38.17 kg/m2 Deep Kimbrough MD Work Phone: [facility] 06-03-2024 08:45-0400 Body weight 120.66 kg Deep iKmbrough MD Work Phone: [facility] 06-03-2024 08:45-0400 Diastolic blood pressure 76 mm[Hg] Deep Kimbrough MD Work Phone: [facility] 06-03-2024 08:45-0400 Heart rate 81 /min Deep Kimbrough MD Work Phone: [facility] 06-03-2024 08:45-0400 SaO2% (BldA) [Mass fraction] 97 % Deep Kimbrough MD Work Phone: [facility] 06-03-2024 08:45-0400 Systolic blood pressure 130 mm[Hg] Deep Kimbrough MD Work Phone: [facility] Encounters Encounter Date Encounter Type Care Provider Facility Start: 11-24-2024 End: 11-24-2024 Dulce Kimbrough MD Work Phone: [facility] Start: 11-24-2024 End: 11-24-2024 Dulce Kimbrough MD Work Phone: [facility] Start: 11-24-2024 End: 11-24-2024 ambulatory DEEP KIMBROUGH Not Available Start: 10-25-2024 End: 10-25-2024 Elliotto janet Kimbrough MD Work Phone: [facility] Start: 10-25-2024 End: 10-25-2024 Dulce Kimbrough MD Work Phone: [facility] Start: 10-25-2024 End: 10-25-2024 Patient encounter procedure Deep Kimbrough MD Work Phone: [facility] Comment on above: Encounter for Medica re annual wellness exam (Primary Dx); Advance directive discussed with patient; Encounter for screening for other disorder; Screening for alcohol problem; Class 2 severe obesity with serious comorbidity and body mass index (BMI) of 39.0 to 39.9 in adult, unspecified obesity type (CMS/HCC); Pulmonary hypertension (CMS/HCC); Chronic diastolic heart failure (CMS/HCC); Chronic atrial fibrillation (HCC) (CMS/HCC); 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); Benign essential hypertension (CMS/HCC); Chronic kidney disease, stage 2 (mild); Type 2 diabetes mellitus with diabetic chronic kidney disease (CMS/HCC); Diet-controlled diabetes mellitus (CMS/HCC); Mixed dyslipidemia (CMS/HCC) Start: 10-25-2024 End: 10-25-2024 ambulatory DEEP KIMBROUGH Not Available Start: 10-18-2024 ambulatory [facility] Start: 10-08-2024 End: 10-08-2024 Postop follow up visit related to original px Filemon Ugarte MD Work Phone: [facility] Comment on above: Family history of co zeina cancer (Primary Dx) Start: 10-08-2024 End: 10-08-2024 ambulatory FILEMON UGRATE V Not Available Start: 09-30-2024 End: 09-30-2024 Bamboo flowsheet Deep Kimbrough MD Work Phone: [facility] Start: 09-30-2024 End: 09-30-2024 Bamboo flowsheet Deep Kimbrough MD Work Phone: [facility] Start: 09-30-2024 End: 09-30-2024 Office outpatient visit 15 minutes Deep Kimbrough MD Work Phone: [facility] Comment on above: Obstructive sleep ap kenna (Primary Dx); BiPAP (biphasic positive airway pressure) dependence; Morbid obesity due to excess calories (CMS/HCC); Pulmonary hypertension (CMS/HCC); Benign essential hypertension (CMS/HCC) Start: 09-30-2024 End: 09-30-2024 ambulatory DEEP KIMBROUGH Not Available Start: 09-29-2024 End: 09-29-2024 ambulatory Filemon Ugarte Facility:[facility] Start: 09-29-2024 End: 10-12-2024 External Result Encounter Filemon Ugarte MD Work Phone: [facility] Unsolicited Start: 09-29-2024 End: 10-12-2024 External Result Encounter Filemon Erazo MD Work Phone: [facility] Unsolicited Start: 09-28-2024 End: 09-28-2024 ambulatory [facility] Start: 09-08-2024 End: 09-08-2024 Bamboo flowsheet Aston Nolasco DO Work Phone: [facility] Start: 09-08-2024 End: 09-08-2024 Bamboo flowsheet Aston Nolasco DO Work Phone: [facility] Start: 09-08-2024 End: 09-08-2024 ambulatory ASTON BURGOSLIBRADO Not Available Start: 08-25-2024 End: 08-25-2024 Office outpatient new 45 minutes Filemon Ugarte MD Work Phone: [facility] Comment on above: Family history of co zeina cancer (Primary Dx); Encounter for screening for malignant neoplasm of colon Start: 08-25-2024 End: 08-25-2024 ambulatory FILEMON UGARTE V Not Available Start: 08-04-2024 End: 08-04-2024 ambulatory NGHIA [facility] Start: 06-30-2024 ambulatory [facility] Start: 06-30-2024 End: 06-30-2024 ambulatory [facility] Start: 06-25-2024 End: 06-25-2024 Clinisync Result Encounter Generic External Data Provider [facility] Unsolicited Start: 06-25-2024 End: 06-25-2024 Clinisync Result Encounter Generic External Data Provider [facility] Unsolicited Start: 06-23-2024 End: 06-23-2024 ambulatory IVELISSE [facility] Start: 06-03-2024 End: 06-03-2024 Dulce Kimbrough MD Work Phone: [facility] Start: 06-03-2024 End: 06-03-2024 Dulce Kimbrough MD Work Phone: [facility] Start: 06-03-2024 End: 06-03-2024 Office outpatient visit 25 minutes Deep Kimbrough MD Work Phone: [facility] Comment on above: Benign essential hyp ertension (CMS/HCC); Chronic atrial fibrillation (HCC) (CMS/HCC); Hypertensive nephropathy (CMS/HCC); Chronic kidney disease, stage 2 (mild); Microalbuminuria; Type 2 diabetes mellitus with stage 2 chronic kidney disease, without long-term current use of insulin (CMS/HCC); Diet-controlled diabetes mellitus (CMS/HCC); Mixed dyslipidemia (CMS/HCC); Morbid obesity due to excess calories (CMS/HCC) Start: 06-03-2024 End: 06-03-2024 ambulatory DEEP KIMBROUGH Not Available Start: 01-02-2024 End: 01-02-[address] [facility] Start: 12-15-2023 End: 12-15-2023 ambulatory LEEANN BRIDGES Not Available Start: 03-08-[address] DEEP KIMBROUGH Facil ity:[facility] Start: 02-20-2022 End: 02-20-[address] DEEP KIMBROUGH Facility:[facility] Start: 08-17-2020 End: 08-18-2020 ambulatory DEEP KIMBROUGH Facility:[facility] Procedures Date Procedure Procedure Detail Performing Clinician Start: 09-29-2024 PATHOLOGY REQUEST FO R LAB BRUNO Filemon Ugarte MD Work Phone: Start: 09-29-2024 Colonoscopy Filemon Erazo MD Work Phone: Start: 09-08-2024 End: 09-08-2024 [facility] medical xm&eval comprhnsv estab pt 1/> Diet-controlled diabetes mellitus (CMS/HCC) Aston Nolasco DO Work Phone: Comment on above: Diet-controlled diab etes mellitus (CMS/HCC) (Primary Dx); Age-related nuclear cataract of both eyes; Dry eyes; Amblyopia of right eye Start: 06-25-2024 ALL CBC WITH AUTO DIFF Generic External Data Provider Start: 06-09-2014 Colonoscopy Deep chisholm MD Work Phone: Plan of Treatment Date Care Activity Detail Author Start: 09-29-2034 Screening for malign ant neoplasm of colon [facility] Start: 09-08-2026 Glaucoma screening Diabetes: R etinopathy Screening [facility] Start: 10-25-2025 Pneumococcal Vaccine : 65+ Years (1 of 2 - PCV) Pneumococcal Vaccine: 65+ Years (1 of 2 - PCV) [facility] Comment on above: Postponed from 02/04 (Patient Refused) Start: 09-21-2025 End: 09-21-2025 Patient encounter procedure 09/21/2025 10:00 AM EST Office Visit [facility] [address] [place] [id number] Aston Nolasco DO [address] [place] [address] [facility] Start: 08-18-2025 Glaucoma screening Diabetes: R etinopathy Screening [facility] Start: 05-10-2025 Hemoglobin A1c measurement Diabetes: Hemoglobin A1C [facility] Start: 12-16-2024 End: 12-16-2024 Patient encounter procedure 12/16/2024 8:30 AM EST Office Visit [facility] [address] [place] [address] Leeann Bridges MD [address] [place] [address] [facility] Start: 11-25-2024 End: 11-25-2024 Patient encounter procedure [facility] Start: 11-24-2024 End: 11-24-2024 Patient encounter procedure [facility] Comment on above: Benign essential hyp ertension (CMS/HCC); Hypertensive nephropathy (CMS/HCC); Chronic kidney disease, stage 2 (mild); Microalbuminuria; Type 2 diabetes mellitus with stage 2 chronic kidney disease, without long-term current use of insulin (CMS/HCC); Diet-controlled diabetes mellitus (CMS/HCC); Mixed dyslipidemia (CMS/HCC); Morbid obesity due to excess calories (CMS/HCC) Start: 11-10-2024 Hemoglobin A1c measurement Diabetes: Hemoglobin A1C [facility] Start: 11-03-2024 End: 06-03-2025 Comprehensive metabolic 2000 panel - Serum or Plasma Comprehensive metabolic panel Lab Routine Benign essential hypertension (CMS/HCC) Chronic kidney disease, stage 2 (mild) Type 2 diabetes mellitus with stage 2 chronic kidney disease, without long-term current use of insulin (CMS/HCC) Expected: 11/03/2024, Expires: 06/03/2025 [facility] Work Phone: Comment on above: Expected: 11/03/2024 , Expires: 06/03/2025 Start: 11-03-2024 End: 06-03-2025 Hemoglobin A1c/Hemoglobin.total in Blood Hemoglobin A1c Lab Routine Type 2 diabetes mellitus with stage 2 chronic kidney disease, without long-term current use of insulin ([facility]) Expected: 11/03/2024, Expires: 06/03/2025 [facility] Comment on above: Expected: 11/03/2024 , Expires: 06/03/2025 Start: 11-03-2024 End: 06-03-2025 Lipid 1996 panel - Serum or Plasma Lipid panel Lab Routine Mixed dyslipidemia ([facility]) Expected: 11/03/2024, Expires: 06/03/2025 [facility] Comment on above: Expected: 11/03/2024 , Expires: 06/03/2025 Start: 10-25-2024 End: 10-25-2024 Patient encounter procedure [facility] Comment on above: Encounter for Medica re annual wellness exam; Advance directive discussed with patient; Encounter for screening for other disorder; Screening for alcohol problem; Morbid obesity due to excess calories ([facility]) Start: 10-23-2024 Pneumococcal Vaccine : 65+ Years (1 of 2 - PCV) Pneumococcal Vaccine: 65+ Years (1 of 2 - PCV) [facility] Comment on above: Postponed from 02/04 (Patient Refused) Start: 10-08-2024 End: 10-08-2024 Patient encounter procedure 10/08/2024 9:30 AM EST Office Visit [facility] [address] [address] Filemon Ugarte MD [address] [facility] Start: 09-30-2024 End: 09-30-2024 Patient encounter procedure [facility] Comment on above: Obstructive sleep ap kenna; BiPAP (biphasic positive airway pressure) dependence; Morbid obesity due to excess calories ([facility]) Start: 09-08-2024 End: 09-08-2024 Patient encounter procedure [facility] Comment on above: Arrived Start: 08-23-2024 End: 08-23-2024 Patient encounter procedure 08/23/2024 9:00 AM EST Office Visit [facility] [address] [place] [address] Aston Nolasco DO [address] [place] [address] [facility] Start: 06-13-2024 Influenza vaccination Influenza Vacc ine (#1) [facility] Start: 06-09-2024 Screening for malign ant neoplasm of colon [facility] Start: 06-03-2024 End: 06-03-2024 Patient encounter procedure 06/03/2024 9:00 AM EDT Office Visit [facility] [address] [phone] Deep Kimbrough MD [address] [place] [address] Benign essential hypertension (CMS/HCC); Chronic atrial fibrillation (HCC) (CMS/HCC); Hypertensive nephropathy (CMS/HCC); Chronic kidney disease, stage 2 (mild); Microalbuminuria; Type 2 diabetes mellitus with stage 2 chronic kidney disease, without long-term current use of insulin (CMS/HCC); Diet-controlled diabetes mellitus (CMS/HCC); Mixed dyslipidemia (CMS/HCC); Morbid obesity due to excess calories (CMS/HCC) [facility] Comment on above: Benign essential hyp ertension (CMS/HCC); Chronic atrial fibrillation (HCC) (CMS/HCC); Hypertensive nephropathy (CMS/HCC); Chronic kidney disease, stage 2 (mild); Microalbuminuria; Type 2 diabetes mellitus with stage 2 chronic kidney disease, without long-term current use of insulin (CMS/HCC); Diet-controlled diabetes mellitus (CMS/HCC); Mixed dyslipidemia (CMS/HCC); Morbid obesity due to excess calories (CMS/HCC) Start: 05-19-2024 Urine screening for protein Diabetes: Urine Protein Screening [facility] Start: 12-05-2023 Urine screening for protein Diabetes: Urine Protein Screening [facility] Start: 1961 Pneumococcal Vaccine : 65+ Years (1 of 2 - PCV) Pneumococcal Vaccine: 65+ Years (1 of 2 - PCV) [facility] Start: 1955 Screening for malign ant neoplasm of colon [facility] Immunizations Immunization Date Immunization Notes Care Provider Fa sammiejerry 08-14-2023 SARS-COV-2 (COVID-19 ) vaccine, mRNA, spike protein, LNP, PF, 50 mcg/0.5 mL Deep Kimbrough MD Work Phone: [facility] 09-19-2022 Moderna SARS-CoV-2 50mcg/0.5mL Booster Deep Kimbrough MD Work Phone: [facility] 01-02-2021 Pfizer Purple Cap SARS-CoV-2 Vaccination Deep Kimbrough MD Work Phone: [facility] 12-05-2020 Pfizer Purple Cap SARS-CoV-2 Vaccination Deep Kimbrough MD Work Phone: [facility] Payers Date Payer Category Payer Private Health Insurance [facility] [id number] 2023 Unknown [facility] [place] [id number] 2023-Present [address] [facility] [place] [address] [id number] 2023 Unknown [id number] 2021 Medicare [id number] 5 2021 Unknown [id number] 1959 Medicare [id number] 1959 Self-pay 1959 Unknown [id number] 1955 Unknown [id number] [id number] .2.647 1955 Unknown [id number] [id number] .2.593 1955 Unknown [id number] [id number] .2.593 1955 Unknown [id number] [id number] .2.1259 1955 Unknown [id number] [id number] .2.1259 1955 Unknown [id number] [id number] .2.1259 1955 Unknown [id number] [id number] .2.1259 1955 Unknown [id number] [id number] .2.1259 1955 Unknown [id number] [id number] .2.1259 1955 Unknown [id number] [id number] .2.1259 1955 Unknown [id number] [id number] .2.1259 Unknown [id number] .2.531 Social History Date Type Detail Facility Start: 05-29-2023 Tobacco smoking stat [facility] Never smoked tobacco [facility] Start: 05-29-2023 Tobacco use and exposure Smoke less tobacco non-user [facility] Start: 08-25-2024 End: 11-05-2024 Alcoholic beverage intake Current drinker of alcohol (finding) [facility] Start: 08-25-2024 End: 11-01-2024 Alcoholic beverage intake [facility] Start: 06-03-2024 End: 11-01-2024 Tobacco use panel [facility] Start: 05-29-2023 Alcohol Comment Caffeine intak e: 1-2 cups per day [facility] Start: 1955 Sex assigned at Not on file N [facility] Clinical Notes 01-02-2024 to 10-25-2024 Deep Kimbrough MD - 10/25/2024 9:00 AM Palak Erazo MD - 10/08/2024 9:30 AM Liliana Kimbrough MD - 09/30/2024 8:30 AM Audi Nolasco DO - 09/08/2024 8:45 AM EST Note Date & Type Note Facility 10-25-2024 History of Present illness Narrative Images from the original note were not included. Subjective : Chief Complaint: Jj Sky is an 69 y.o. male here for an annual wellness visit. I have reviewed and reconciled the history and medication list with the patient today. Current Outpatient Medications Medication Sig Dispense Refill amLODIPine (Norvasc) 10 MG tablet Take 10 mg by mouth 1 (one) time each day at the same time. cholecalciferol (Vitamin D-3) 250 MCG (70141 UT) capsule Take 1 capsule by mouth in the morning and 1 capsule before bedtime. Elastic Bandages & Supports ([employer] Firm Compression Socks) misc Knee high, 20-30 mmHg Put on in AM and take off in PM daily. 4 each 1 Eliquis 5 MG tablet Take 5 mg by mouth in the morning and 5 mg before bedtime. labetalol (Normodyne) 200 MG tablet Take 200 mg by mouth every 12 (twelve) hours. (Patient taking differently: Take 200 mg by mouth in the morning and 200 mg in the evening and 200 mg before bedtime.) losartan-hydroCHLOROthiazide (Hyzaar) 100-25 MG tablet Take 1 tablet by mouth in the morning. Magnesium 400 MG capsule Take 1 capsule by mouth 1 (one) time each day at the same time. Multiple Vitamin (multivitamin) capsule Take 1 capsule by mouth 1 (one) time each day at the same time. rosuvastatin (Crestor) 10 MG tablet Take 1 tablet (10 mg) by mouth in the morning. 90 tablet 3 No current facility-administered medications for this visit. Review of Systems Noncontributory help unless mentioned otherwise. List of current healthcare providers: Patient Care Team: Deep Kimbrough MD as PCP - General (Family Medicine) Deep Kimbrough MD as PCP - ACO Reach Aston Nolasco DO as Referring Physician (Ophthalmology) Nghia Ritter MD as Referring Physician (Cardiology) Medicare Annual Visit Over the past 2 weeks, how often have you been bothered by any of the following problems? Little interest or pleasure in doing things: Not at all Feeling down, depressed, or hopeless: Not at all Patient Health Questionnaire-2 Score: 0 Over the past 2 weeks, how often have you been bothered by any of the following problems? Trouble falling or staying asleep, or sleeping too much: Not at all Feeling tired or having little energy: Several days Poor appetite or overeating: Several days Feeling bad about yourself - or that you are a failure or have let yourself or your family down: Not at all Trouble concentrating on things, such as reading the newspaper or watching television: Not at all Moving or speaking so slowly that other people could have noticed? Or the opposite - being so fidgety or restless that you have been moving around a lot more than usual.: Not at all Thoughts that you would be better off or hurting yourself in some way: Not at all Patient Health Questionnaire-9 Score: 2 Health Risk Assessment Form Do you need help eating, bathing, using the toilet, dressing, or getting around your home?: No Can you prepare your own meals?: Yes Can you do your own housework without help?: Yes Can you shop for groceries or clothes without help?: Yes Do you exercise for about 20 minutes 3 or more days a week?: Yes How confident are you that you can control and manage most of your health problems?: Very confident Can you mange your money, credit cards and accounts, pay bills and taxes?: Yes Vision Screening: Yes, patient sees regular osteologist/baggage and mail agent Hearing Screening: Not done Pain Assessment Pain Score: 3 Advance Care Planning Do you have a living will?: No Do you have a medical power of personal injury attorney?: No Objective : Ht 5' 10 Wt 273 lb BMI 39.17 kg/m No results found. Physical Exam The patient is pleasant and in no acute distress The patient has good eye contact and clear speech Assessment/Plan : The following health maintenance schedule was reviewed with the patient and provided in printed form in the after visit summary: Health Maintenance Topic Date Due Diabetes: Urine Protein Screening 12/05/2023 Diabetes: Hemoglobin A1C 11/10/2024 Pneumococcal Vaccine: 65+ Years (1 of 2 - PCV) 10/25/2025 (Originally 1961) Diabetes: Retinopathy Screening 09/08/2026 Colorectal Cancer Screening 09/29/2034 Influenza Vaccine Discontinued 1. Encounter for Medicare annual wellness exam (Primary) The patient is here for their Annual Medicare Wellness visit. Demographics were updated. Self-assessment was completed and reviewed. Past medical, family, and social history were updated. The medication list updated and reviewed by the doctor. A list of other current medical providers is established and updated. Time was spent discussing health maintenance issues, ordering testing as appropriate, and a schedule was reviewed regarding recommended screening. We discussed safety issues and fall risk. Depression screening was completed and addressed as appropriate. Fall screening was completed and addressed. Cognitive function was assessed by direct observation, cognitive screening as indicated, and assessment of ability to perform ADL's. The BMI and discussed. Major risk factors for chronic disease including family history were discussed. An after visit summary is made available to the patient 2. Advance directive discussed with patient Patient voluntarily agreed to discuss advance care planning at today's wellness visit. We discussed that an advance directive is a legal document that only goes into effect if the patient is incapacitated and unable to speak for themselves. This would help us to decide what care the patient would want. We discussed emergency treatments to keep the patient alive such as CPR, ventilator use and concept of comfort. We discussed how patients could make their wishes known through a living will, durable power of personal injury attorney for healthcare, or other advanced directives. We discussed telling ritchie people about their advance and a copy will be kept in the EHR. I discussed that they should also make me an emergency contact in their cell phone, and/or notify their POA that I have a copy of the advanced directives. 3. Encounter for screening for other disorder Clinically insignificant depression screening 4. Screening for alcohol problem Negative alcohol screening 5. Class 2 severe obesity with serious comorbidity and body mass index (BMI) of 39.0 to 39.9 in adult, unspecified obesity type (CMS/HCC) Encouraged lifestyle modifications 6. Pulmonary hypertension (CMS/HCC) Chronic problem, stable, clinically asymptomatic, comanaged with Cardiology. 7. Chronic diastolic heart failure (CMS/HCC) Chronic problem, stable, clinically asymptomatic, comanaged with Cardiology. 8. Chronic atrial fibrillation (HCC) (CMS/HCC) Chronic problem, stable, clinically asymptomatic, comanaged with Cardiology. 9. 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) Chronic problem, stable, clinically asymptomatic, comanaged with Cardiology. 10. Benign essential hypertension (CMS/HCC) Chronic problem, stable, clinically asymptomatic, comanaged with Cardiology. 11. Chronic kidney disease, stage 2 (mild) Chronic problem, stable, defines the nephropathy these. 12. Type 2 diabetes mellitus with diabetic chronic kidney disease (CMS/HCC) Chronic problem, stable, lifestyle managed. 13. Diet-controlled diabetes mellitus (CMS/HCC) As above 14. Mixed dyslipidemia (CMS/HCC) Chronic problem, stable, tolerating statin. Comanaged with Cardiology. Electronically signed by Deep Kimbrough MD on November 05, 2024 documented in this encounter [facility] 10-18-2024 Note [place] [facility]iology - [facility] Subjective Jj Sky is a 69 y.o. year old male patient being seen for Hypertension and Atrial Fibrillation Patient Active Problem List Diagnosis 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) BiPAP (biphasic positive airway pressure) dependence Cardiomegaly Chronic diastolic heart failure (CMS/HCC) Edema of lower extremity History of basal cell carcinoma (BCC) of skin Aortic valve disorder Mitral valve disorder Mixed hyperlipidemia Morbid obesity (CMS/HCC) Obstructive sleep apnea syndrome PAF (paroxysmal atrial fibrillation) (CMS/HCC) Persistent atrial fibrillation (CMS/HCC) Peripheral venous insufficiency Pulmonary hypertension (CMS/HCC) Right bundle branch block Type 2 diabetes mellitus without complication (CMS/HCC) Vitamin D deficiency Chronic kidney disease, stage 2 (mild) Hypertensive nephropathy Microalbuminuria Mild concentric left ventricular hypertrophy (LVH) Mixed dyslipidemia Other seborrheic keratosis Age-related nuclear cataract of both eyes Amblyopia of right eye BMI 37.0-37.9, adult Diet-controlled diabetes mellitus (CMS/HCC) Dry eyes Family history of colon cancer HPI Patient is here today for follow-up visit. He saw Dr. Meadows last month and told him he may increase labetalol to 400mg bid IF BP log reveals elevated BP's. He has not made the increase as he wanted to check with the doctor first. He brought his blood pressure log at home and his blood pressure still on the high side. The patient states that he is not symptomatic. Denies any chest pain, or shortness of breath at rest or with exertion. Denies orthopnea or paroxysmal nocturnal dyspnea or dizziness or palpitations or legs edema ROS All systems were reviewed and they were negative except for the positive findings noted above in the history Past Medical History: Diagnosis Date Abnormal ECG Arrhythmia Atrial fibrillation (CMS/HCC) Hyperlipidemia Hypertension RBBB (right bundle branch block) Sleep apnea Past Surgical History: Procedure Laterality Date ABLATION OF DYSRHYTHMIC FOCUS Family History Problem Relation Name Age of Onset Other (pacemaker) Mother Coronary artery disease Father Atrial fibrillation Sister Atrial fibrillation Brother Social History Tobacco Use Smoking status: Never Smokeless tobacco: Never Substance Use Topics Alcohol use: Yes Comment: moderate Allergies No Known Allergies Medications Current Outpatient Medications: amLODIPine (Norvasc) 10 mg tablet, Take 1 tablet (10 mg) by mouth in the morning., Disp: 90 tablet, Rfl: 3 apixaban (Eliquis) 5 mg tablet, Take 1 tablet (5 mg) by mouth in the morning and at bedtime., Disp: 180 tablet, Rfl: 3 cholecalciferol, vitamin D3, 250 mcg (10,000 unit) capsule, Take 1 capsule by mouth twice a day., Disp: , Rfl: losartan-hydrochlorothiazide (Hyzaar) 100-25 mg tablet, TAKE 1 TABLET BY MOUTH EVERY DAY IN THE MORNING, Disp: 90 tablet, Rfl: 3 magnesium oxide,aspartate,citr (Triple Magnesium Complex) 400 mg magnesium capsule, Take 1 capsule by mouth., Disp: , Rfl: rosuvastatin (Crestor) 10 mg tablet, Take 1 tablet (10 mg) by mouth at bedtime., Disp: 90 tablet, Rfl: 3 labetalol (Normodyne) 200 mg tablet, Take 1 tablet (200 mg) by mouth three times daily., Disp: 270 tablet, Rfl: 3 Objective Visit Vitals BP 169/80 (BP Location: Left arm, Patient Position: Sitting) Pulse 68 Ht 1.778 m (5' 10 ) Wt 123 kg (271 lb) SpO2 95% BMI 38.88 kg/m??? Smoking Status Never BSA 2.46 m??? Physical exam: GENERAL: alert and oriented x3, well developed, in no acute distress. HEAD: atraumatic, normocephalic. EYES: KARLA, EOMI. NECK: trachea midline, no JVD present, no carotid bruits present. CARDIAC: S1, S2 present. RRR. No murmur, rubs, or gallops. RESPIRATORY: CTAB, no increased effort of breathing, no rales, rhonchi, or wheezing. ABDOMEN: soft, nontender, nondistended. EXTREMITIES: no lower extremity edema. No rash/skin discoloration present. NEURO: strength/sensation equal and symmetric in bilateral upper and lower extremities. PSYCH: appropriate mood, affect, and judgement. Recent Labs 12/26/2023 Cholesterol 164, HDL 49, triglyceride 89, LDL 97 06/25/2024 White blood count 7.1K, hemoglobin 12.8, hematocrit 39, platelets 179 Sodium 141, potassium 3.9, BUN 18, creatinine 1.1, GFR above 60, calcium 9 Imaging and other tests EK05/30/2024 showed sinus bradycardia, left axis deviation, possible anterior septal old infarct, no change in comparison to EKG 08/04/2024 Echo: 08/12/24 Stress test: Nuclear SPECT study performed on May 05, 2019 revealed EF of 56% with no evidence of ischemia Assessment/Plan Persistent A-fib, Status post PVI and CTI ablation about 3 to 4 years ago S/p cardioversion June 2024. [id number] score is 2. He is on Eliquis for anticoagulation and he is on labe (more content not included)... [facility] 10-08-2024 History of Present illness Narrative Images from the original note were not included. Patient is status post a colonoscopy. He had a polyp at about 15 cm. Pathology still pending. He does have family history for colon cancer. Patient is on Eliquis. He had some blood in his stool a couple days after the colonoscopy and then a couple times after that. He states today he had a normal bowel movement without blood. 1. Family history of colon cancer If the bleeding persists, patient is to call. Otherwise, we will await the pathology results. Depending on the pathology results, he will be put on recall for 3 years or 5 years for colonoscopy. documented in this encounter [facility] 09-30-2024 History of Present illness Narrative Patient ID: Jj Sky is a 69 y.o. male who presents for: Sleep Apnea He presents for a sleep Re evaluation. He complains of take naps during the day. Better since he was on BiPAP. Symptoms began several years ago, stable since that time. He goes to sleep at 12am weekdays and 12am weekends. He awakens 8am weekdays and 8am weekends. He falls asleep in 20 minutes. He denies snoring, snorting, choking, periods of not breathing, tossing and turning. Previous evaluation and treatment has included C-PAP trial. [facility] fax [phone] Review of Systems Constitutional: Negative for activity change and fatigue. Respiratory: Negative for cough, shortness of breath and wheezing. Cardiovascular: Negative for chest pain, palpitations and leg swelling. Neurological: Negative for light-headedness and headaches. Objective The patient is pleasant and in no acute distress. The neck is supple and trachea is midline. No masses are appreciated. The heart is regular rate and rhythm without S3, S4. No murmur. The patient has normal respiratory pattern. The breath sounds are symmetrical without evidence of rhonchi or rales. No wheezing. The skin is warm and dry. The lower extremities have trace edema. The patient has good eye contact and speech is clear. Appropriate affect. Visit Vitals Pulse 54 Ht 5' 10 Wt 270 lb SpO2 97% BMI 38.74 kg/m Smoking Status Never BSA 2.45 m No Known Allergies Current Outpatient Medications on File Prior to Visit Medication Sig Dispense Refill amiodarone (Pacerone) 200 MG tablet Take 200 mg by mouth Daily amLODIPine (Norvasc) 10 MG tablet Take 10 mg by mouth 1 (one) time each day at the same time. cholecalciferol (Vitamin D-3) 250 MCG (81616 UT) capsule Take 1 capsule by mouth in the morning and 1 capsule before bedtime. Elastic Bandages & Supports ([employer] Firm Compression Socks) misc Knee high, 20-30 mmHg Put on in AM and take off in PM daily. 4 each 1 Eliquis 5 MG tablet Take 5 mg by mouth in the morning and 5 mg before bedtime. labetalol (Normodyne) 200 MG tablet Take 200 mg by mouth every 12 (twelve) hours. losartan-hydroCHLOROthiazide (Hyzaar) 100-25 MG tablet Take 1 tablet by mouth in the morning. Magnesium 400 MG capsule Take 1 capsule by mouth 1 (one) time each day at the same time. Multiple Vitamin (multivitamin) capsule Take 1 capsule by mouth 1 (one) time each day at the same time. rosuvastatin (Crestor) 10 MG tablet Take 1 tablet (10 mg) by mouth in the morning. 90 tablet 3 No current facility-administered medications on file prior to visit. 1. Obstructive sleep apnea (Primary) This patient has had the above-mentioned symptoms. They have had a sleep study that is positive for obstructive sleep apnea. The PAP therapy compliance report is obtained and reviewed. After re-evaluation there do not appear to be any issues or contraindications to continued PAP therapy. The patient or their career representative and I have mutually agreed to the obstructive sleep apnea diagnosis and the need for PAP Therapy. The patient has been compliant with PAP therapy. See the sleep therapy order form; The patient If due for a new device per their insurance coverage, will require a similar PAP device and related equipment. The patient will be fitted for appliance or mask. the patient will require heated humidification. I certify that I had a [id number] encounter with this patient at todays office visit. Due to this medical condition the patient continues to require the DME. I certify that based on my findings The DME ordered is medically necessary for this patient. This has been discussed with the patient or their career representative and mutually agreed upon. 2. BiPAP (biphasic positive airway pressure) dependence Defines the PAP therapy 3. Morbid obesity due to excess calories ([facility]) Chronic problem, comorbid condition. Again encouraged lifestyle changes 4. Pulmonary hypertension (CMS/HCC) Chronic problem , comorbid condition, that is being comanaged Cardiology and appears to be stable. 5. Benign essential hypertension (CMS/HCC) Chronic problem , comorbid condition, that is being comanaged Cardiology and appears to be stable. documented in this encounter [facility] 09-28-2024 Note [place]iology Consult [place] [facility] Reason for visit: Post DCCV HPI: Jj Sky is a 69 y.o. year old with past medical history of hypertension was referred by Dr Castellanos for underlying AFib. He has previously oticed he was in atrial fib-notices that he just does not feel right feels as pulse and notes it is irregular. States this occurred 3 times within this last couple months since last February, states he feels like it is lasting longer up to a couple days at a time and is markedly symptomatic during these episodes. He definitely qualifies stating that he did feel much better in terms of energy after he had undergone cardioversion in 2018. He is currently on anticoagulation with Eliquis and is not keen on taking medications for his A. fib problem and look into alternative solution such as ablation. He underwent PVI+CTI on 08/2020. His BP was an issue and has been taking labetalol 100 mg twice daily and on this his blood pressure has been ranging anywhere between 130s to 140mmHg. He is not actively exercising but is planning to retire in July 2021. He has cut down on his caffeine which he states has improved his blood pressure readings from 1 40-1 30. I had d/c'd his labetalol 300mg BID after his ablation d/t low HR. Tanisha Ritter restarted labetalol at last appt at 100mg BID. Pt states that he had COVID at the beginning of May, felt like he was feeling out of rhythm while checking his pulse. He underwent DCCV and has been in SR since. Patient here for follow up echo and DCCV performed on 06/30/2024. Continues to deny chest pain, SOB, palpitations, lightheadedness/syncope, and bleeding on Eliquis. EKG 09/28/24 SR EP Procedure 08/17/2020 1. Persistent atrial fibrillation s/p PVI ([facility]). 2. Atrial flutter s/p CTI ablation. 3. EP study revealing no retrograde accessory pathway. 4. No inducible arrhythmia with Adenosine. 5. Normal LA filling pressures which increased with tachycardia suggestive of distolic dysfunction. EKG from July 21, 2010 patient be sinus rhythm with normal intervals and source of 1 from May 2019 Patient underwent cardioversion on May 21, 2019 [place]aren 200 J shock cardioverted into sinus rhythm. PMH: Past Medical History: Diagnosis Date Abnormal ECG Arrhythmia Atrial fibrillation (CMS/HCC) Hyperlipidemia Hypertension RBBB (right bundle branch block) Sleep apnea PSH: Past Surgical History: Procedure Laterality Date ABLATION OF DYSRHYTHMIC FOCUS SH: Social Determinants of Health Tobacco Use: Low Risk (09/15/2024) Received from [facility] Patient History Smoking Tobacco Use: Never Smokeless Tobacco Use: Never Passive Exposure: Not on file Alcohol Use: Not on file Financial Resource Strain: Not on file Food Insecurity: Not on file Transportation Needs: Not on file Physical Activity: Not on file Stress: Not on file Social Connections: Not on file Intimate Partner Violence: Unknown (12/04/2023) [place] Safety & Environment Fear of Current or Ex-Partner: Not on file Emotionally Abused: Not on file Physically Abused: Not on file Sexually Abused: Not on file Physically or Sexually Abused: Not on file Depression: Not on file Housing Stability: Not on file Utilities: Not on file Health Literacy: Not on file Allergies: No Known Allergies Weight: 122kg Visit Vitals BP 142/70 (BP Location: Right arm, Patient Position: Sitting) Pulse 60 Ht 1.778 m (5' 10 ) Wt 122 kg (269 lb) SpO2 96% BMI 38.60 kg/m??? Smoking Status Never BSA 2.45 m??? Meds: Current Outpatient Medications on File Prior to Visit Medication Sig Dispense Refill amiodarone (Pacerone) 200 mg tablet 1 tablet daily 90 tablet 3 amLODIPine (Norvasc) 10 mg tablet Take 1 tablet (10 mg) by mouth in the morning. 90 tablet 3 apixaban (Eliquis) 5 mg tablet Take 1 tablet (5 mg) by mouth in the morning and at bedtime. 180 tablet 3 cholecalciferol, vitamin D3, 250 mcg (10,000 unit) capsule Take 1 capsule by mouth twice a day. labetalol (Normodyne) 200 mg tablet Take 1 tablet (200 mg) by mouth in the morning and at bedtime. 180 tablet 3 losartan-hydrochlorothiazide (Hyzaar) 100-25 mg tablet Take 1 tablet by mouth in the morning. 90 tablet 3 magnesium oxide,aspartate,citr (Triple Magnesium Complex) 400 mg magnesium capsule Take 1 capsule by mouth. rosuvastatin (Crestor) 10 mg tablet Take 1 tablet (10 mg) by mouth at bedtime. 90 tablet 3 [DISCONTINUED] amiodarone (Pacerone) 200 mg tablet Take 2 tablets (400 mg) by mouth two times daily for 10 days, THEN 1 tablet (200 mg) in the morning. (Patient taking differently: 1 tablet daily) 100 tablet 0 No current facility-administered medications on file prior to visit. ROS: Review of Systems Cardiovascular: Positive for leg swelling (minimal). Negative for syncope. Musculoskeletal: Positive for joint pain. All other systems reviewed and are negative (more content not included)... [facility] 09-08-2024 History of Present illness Narrative Images from the original note were not included. Assessment/Plan Diagnoses and all orders for this visit: Diet-controlled diabetes mellitus (CMS/HCC) - Diabetes Mellitus without sign of diabetic retinopathy on dilated retinal examination today OU: Discussed the pathophysiology of diabetes and its effect on the eye. Stressed the importance of strong glucose control. Advised of importance of at least yearly dilated examinations, but to contact us immediately for any problems or concerns. Age-related nuclear cataract of both eyes - Cataract, OU: Observe for now without intervention. The patient was advised to contact us if any change or worsening of vision Dry eyes - Dry Eyes OU -- Environmental changes to minimize dryness and exposure and the use of artificial tears were recommended. Amblyopia of right eye - Stable. Occlusive. Congenital cataract. documented in this encounter [facility] 08-25-2024 History of Present illness Narrative Images from the original note were not included. Jj Sky 1955 Jj Sky is a 69 y.o. male presents with chief complaint of Schedule colonoscopy (Brother had colon cancer) HPI: Mr. Jj Sky is a 69 year old male presenting today for a preoperative evaluation for a screening colonoscopy. The patient reports that his last colonoscopy was 10 years ago and he reports that there were no abnormal findings at that time. The patient states that today he has no abdominal symptoms including distension, pain, nausea, vomiting, constipation, diarrhea, and blood in the stool. The patient does report that he has a family history of malignancy that includes colon cancer in his brother and stomach cancer in his mother. The patients past medical history includes hypertension, atrial fibrillation, sleep apnea, and prediabetes. The patient reports a past surgical history of an ablation and cardioversion. His current medication list includes amiodarone, eliquis, losartan, hydrochlorothiazide, amlodipine, rosuvastatin, labetalol, magnesium, vitamin C, vitamin D and a multivitamin. He reports that he drinks 2 to 3 drinks a week and was previously a heavy drinker but cut back about 4 years ago. He denies tobacco and drug use. He reports NKDA. SUBJECTIVE: MEDICATIONS: ALLERGIES Current Outpatient Medications Medication Instructions amLODIPine (NORVASC) 10 mg, Every 24 hours cholecalciferol (Vitamin D-3) 250 MCG (85189 UT) capsule 1 capsule, 2 times daily Elastic Bandages & Supports ([employer] Firm Compression Socks) misc Knee high, 20-30 mmHg
Put on in AM and take off in PM daily. Eliquis 5 mg, 2 times daily labetalol (NORMODYNE) 200 mg, Every 12 hours losartan-hydroCHLOROthiazide (Hyzaar) 100-25 MG tablet 1 tablet, Daily Magnesium 400 MG capsule 1 capsule, Every 24 hours Multiple Vitamin (multivitamin) capsule 1 capsule, Every 24 hours rosuvastatin (CRESTOR) 10 mg, Oral, Daily No Known Allergies PAST MEDICAL HISTORY: SOCIAL HISTORY SURGICAL HISTORY: Past Medical History: Diagnosis Date Actinic keratosis Arthritis right knee Atrial fibrillation (CMS/HCC) Basal cell carcinoma Blood loss severe blood loss 4 y/o due to cut on glass Chronic diastolic heart failure (CMS/HCC) HTN (hypertension) (CMS/HCC) Hypertension (CMS/HCC) Incomplete RBBB Mild pulmonary hypertension (CMS/HCC) 2013 EF 60%( Mitral valve regurgitation Obstructive sleep apnea Type 2 diabetes mellitus without complication, without long-term current use of insulin ([facility]) Venous insufficiency Social History Tobacco Use Smoking status: Never Smokeless tobacco: Never Vaping Use Vaping status: Never Used Substance Use Topics Alcohol use: Yes Alcohol/week: 2.0 standard drinks of alcohol Types: 2 Standard drinks or equivalent per week Comment: Caffeine intake: 1-2 cups per day Drug use: Never Past Surgical History: Procedure Laterality Date ABLATION A-FIB 08/2020 Cardiac Ablasion, Dr Norberto Garza, [facility] COLONOSCOPY 2014 FINGER SURGERY little finger SKIN CANCER DESTRUCTION eyelid REVIEW OF SYMPTOMS: Review of Systems Constitutional: Negative for chills, fatigue, fever and unexpected weight change. Respiratory: Negative for cough, chest tightness, shortness of breath and wheezing. Cardiovascular: Negative for chest pain and palpitations. Gastrointestinal: Negative for abdominal distention, abdominal pain, blood in stool, constipation, diarrhea, nausea and vomiting. Genitourinary: Negative for difficulty urinating, dysuria, frequency and urgency. Neurological: Negative for dizziness, weakness, light-headedness and numbness. OBJECTIVE: Visit Vitals BP 132/74 Ht 5' 10 Wt 270 lb BMI 38.74 kg/m Smoking Status Never BSA 2.45 m Physical Exam Constitutional: Appearance: Normal appearance. HENT: Head: Atraumatic. Eyes: General: No scleral icterus. Cardiovascular: Rate and Rhythm: Normal rate and regular rhythm. Pulses: Normal pulses. Heart sounds: Normal heart sounds. Pulmonary: Effort: Pulmonary effort is normal. Breath sounds: Normal breath sounds. Abdominal: General: Abdomen is flat. Bowel sounds are normal. There is no distension. Palpations: Abdomen is soft. Tenderness: There is no abdominal tenderness. Skin: General: Skin is warm and dry. Neurological: Mental Status: He is alert and oriented to person, place, and time. ASSESSMENT AND PLAN: Assessment/Plan Diagnoses and all orders for this visit: Family history of colon cancer Encounter for screening for malignant neoplasm of colon - Ambulatory referral to General Surgery Plan will be to perform a colonoscopy. The procedure, benefits, risks including risks of bleeding, perforation, incomplete colonoscopy were discussed. If the colonoscopy is normal, next colonoscopy in 5 years. documented in this encounter [facility] 08-04-2024 Note Patient here for fol low up cardioversion on 06/30/[address] Meadows. Still denies all cardiac symptoms. Review of Systems Cardiovascular: Positive for leg swelling (minimal). Negative for syncope. Musculoskeletal: Positive for joint pain. All other systems reviewed and are negative. [facility] 08-04-2024 Note Cardiovascular Medic [facility] SUBJECTIVE Chief Complaint Patient presents with Atrial Fibrillation Hypertension Hyperlipidemia Jj Sky is a 69 y.o. male here for follow-up. HPI PMHx: PAF s/p ablation [address] Meadows, HTN, IVONE compliant with CPAP, HLD, peripheral venous insufficiency, HFpEF, mitral regurg Since last seen he underwent a cardioversion. He has been feeling well. He has LE edema, he wears compression stockings, swelling is controlled. Denies c/o CP, dyspnea, orthopnea, PND, dizziness/LH, palpitations, syncope. BP running 120-130s/70s at home. HR 60s. Patient Active Problem List Diagnosis 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) BiPAP (biphasic positive airway pressure) dependence Cardiomegaly Chronic diastolic heart failure (CMS/HCC) Edema of lower extremity History of basal cell carcinoma (BCC) of skin Aortic valve disorder Mitral valve disorder Mixed hyperlipidemia Morbid obesity (CMS/HCC) Obstructive sleep apnea syndrome PAF (paroxysmal atrial fibrillation) (CMS/HCC) Persistent atrial fibrillation (CMS/HCC) Peripheral venous insufficiency Pulmonary hypertension (CMS/HCC) Right bundle branch block Type 2 diabetes mellitus without complication (CMS/HCC) Vitamin D deficiency Chronic kidney disease, stage 2 (mild) Hypertensive nephropathy Microalbuminuria Mild concentric left ventricular hypertrophy (LVH) Mixed dyslipidemia Other seborrheic keratosis Age-related nuclear cataract of both eyes Amblyopia of right eye BMI 37.0-37.9, adult Diet-controlled diabetes mellitus (CMS/HCC) Dry eyes Past Medical History: Diagnosis Date Arrhythmia Atrial fibrillation (CMS/HCC) Hyperlipidemia Hypertension RBBB (right bundle branch block) Sleep apnea Family History Problem Relation Name Age of Onset Other (pacemaker) Mother Coronary artery disease Father Atrial fibrillation Sister Atrial fibrillation Brother Social History Tobacco Use Smoking status: Never Smokeless tobacco: Never Substance Use Topics Alcohol use: Yes Comment: moderate No Known Allergies ROS Cardiovascular: Positive for leg swelling (minimal). Negative for syncope. Musculoskeletal: Positive for joint pain. All other systems reviewed and are negative. OBJECTIVE Visit Vitals BP 152/72 (BP Location: Right arm, Patient Position: Sitting) Pulse 63 Ht 1.778 m (5' 10 ) Wt 122 kg (270 lb) SpO2 96% BMI 38.74 kg/m??? Smoking Status Never BSA 2.45 m??? Medications: Current Outpatient Medications: amiodarone (Pacerone) 200 mg tablet, Take 2 tablets (400 mg) by mouth two times daily for 10 days, THEN 1 tablet (200 mg) in the morning. (Patient taking differently: 1 tablet daily), Disp: 100 tablet, Rfl: 0 amLODIPine (Norvasc) 10 mg tablet, Take 1 tablet (10 mg) by mouth in the morning., Disp: 90 tablet, Rfl: 3 apixaban (Eliquis) 5 mg tablet, Take 1 tablet (5 mg) by mouth in the morning and at bedtime., Disp: 180 tablet, Rfl: 3 cholecalciferol, vitamin D3, 250 mcg (10,000 unit) capsule, Take 1 capsule by mouth twice a day., Disp: , Rfl: labetalol (Normodyne) 200 mg tablet, Take 1 tablet (200 mg) by mouth in the morning and at bedtime., Disp: 180 tablet, Rfl: 3 losartan-hydrochlorothiazide (Hyzaar) 100-25 mg tablet, Take 1 tablet by mouth in the morning., Disp: 90 tablet, Rfl: 3 magnesium oxide,aspartate,citr (Triple Magnesium Complex) 400 mg magnesium capsule, Take 1 capsule by mouth., Disp: , Rfl: rosuvastatin (Crestor) 10 mg tablet, Take 1 tablet (10 mg) by mouth at bedtime., Disp: 90 tablet, Rfl: 3 Physical Exam Constitutional: Appearance: Normal appearance. He is obese. HENT: Head: Normocephalic and atraumatic. Right Ear: External ear normal. Left Ear: External ear normal. Eyes: Extraocular Movements: Extraocular movements intact. Pupils: Pupils are equal, round, and reactive to light. Neck: Vascular: No carotid bruit. Cardiovascular: Rate and Rhythm: Normal rate and regular rhythm. Pulses: Normal pulses. Heart sounds: Normal heart sounds. Pulmonary: Effort: Pulmonary effort is normal. Breath sounds: Normal breath sounds. Abdominal: General: Bowel sounds are normal. Palpations: Abdomen is soft. Musculoskeletal: General: Normal range of motion. Cervical back: Neck supple. Right lower leg: Edema present. Left lower leg: Edema present. Comments: +2 BLE edema, compression stockings in place Skin: General: Skin is warm and dry. Neurological: General: No focal deficit present. Mental Status: He is alert and oriented to person, place, and time. Psychiatric: Mood and Affect: Mood normal. Behavior: Behavior normal. Thought Content: Thought content normal. Judgment: Judgment normal. Labs: Admission on 06/30/2024, Discharged on 06/30/2024 Component Date Value Ref Range Status Ventricular Rate 06/30/2024 81 BPM Final QRS DURATION 06/30/2024 (more content not included)... [facility] 06-30-2024 Note DIRECT CARDIOVERSION PROCEDURE NOTE Date: 06/30/2024. Type of procedure: DC Cardioversion. Performed by: Norberto Meadows MD Informed consent: Signed by patient. Indication:69year old male patient with past medical history including PAF s/p ablation in 2019, HTN, IVONE compliant with cpap, and hyperlipidemia seen in follow-up. Pt states that he had COVID at the beginning of May, felt like he was feeling out of rhythm while checking his pulse. He presented for DCCV. Preparation and technique: Patient was brought into the procedure room. After an informed consent was obtained following a discussion with the patient where I explained the risk and benefit of the procedure that is not limited to skin rosario, fluid in the lungs, heart attack, stroke, or even , though that is very rare. Patches were placed in anteroposterior direction and once patient was made comfortable with Versed 2.5mg and Fentanyl 25mcg. Following sedation, the patient underwent synchronized cardioversion using 360J which converted to sinus rhythm. Post procedure, the patient was stable. No complications noted. Plan: Continue anticoagulation and consider ablation. Norberto Meadows MD Cardiac Electrophysiology [facility] 06-30-2024 Note Patient: Jj bill Procedure Information Date/Time: 06/30/24 0830 Procedure: Cardioversion/defibrillation - PC APPROVED Location: [facility] / [facility] (Cath) Providers: Norberto Meadows MD Clinical information reviewed: Tobacco Allergies Meds Med Hx Surg Hx Fam Hx Physical Exam Airway Mallampati: II TM distance: >3 FB Cardiovascular Dental Pulmonary Abdominal Anesthesia Plan ASA 3 CSE Anesthetic plan and risks discussed with patient. Use of blood products discussed with patient who. Additional Equipment Requests [facility] 06-23-2024 Note [facility] II Continue GDMT- Diuretic therapy- currently stable without diuretic and management with hydrochlorothiazide Monitor daily weights, I&O, fluid restriction 1.5-2L/day, renal function and electrolytes- [facility] 06-23-2024 Note HTN well controlled at home per home b/p log. Renal function stable Continue all meds losartan/hydrochlorothiazide, labetolol and amlodipine [facility] 06-23-2024 Note Currently stable, no concerning symptoms. Reviewed red flag symptoms of chest pain, palpitations, syncope, shortness of breath or increased fatigue and to call office or 911. [facility] 06-23-2024 Note Remains stable with hydrochlorothiazide and compression daily [facility] 06-23-2024 Note [id number]= 3 Age, HTN, CHF Currently pt in A fib/flutter on ECG today, message sent to Dr Meadows for planning cardioversion to return to sinus rhythm. Pt states that he has not missed any doses of eliquis especially over the last month. Denied any bleeding tendencies. [facility] 06-23-2024 Note Will monitor with ro utine echocardiogram, no concerning symptoms, will monitor with echocardiogram [facility] 06-23-2024 Note Stable without concerning sympto ms [facility] 06-23-2024 Note Lipid abnormalities are stable and well controlled Continue crestor [facility] 06-23-2024 Note Pt is here for a six month follow up. Pt has HTN, HLD, and paroxysmal afib. Pt denies sob, chest pain, Palpations. Review of Systems Cardiovascular: Negative for syncope. Musculoskeletal: Positive for joint pain. All other systems reviewed and are negative. [facility] 06-23-2024 Note [facility] CARDIOLOGY PROGR ESS NOTE HPI: Jj Sky is a 69 y.o. male here for routine 6 month F/U HPI 69 year old male patient with past medical history including PAF s/p ablation by Dr. Meadows, HTN, IVONE compliant with cpap, and hyperlipidemia seen in follow-up. Pt states that he had COVID at the beginning of May, felt like he was feeling out of rhythm while checking his pulse. Reviewed at home blood pressure readings and HR, well controlled. Will send him for cardioversion at [facility]. Currently denied chest pain, SOB, Orthopnea, or palpitations. States that he has fully recovered from Covid illness Pt is here for a six month follow up. Pt has HTN, HLD, and paroxysmal afib. Pt denies sob, chest pain, Palpations. Review of Systems Cardiovascular: Negative for syncope. Musculoskeletal: Positive for joint pain. All other systems reviewed and are negativ Visit Vitals BP 142/79 (BP Location: Left arm, Patient Position: Sitting) Pulse 77 Ht 1.778 m (5' 10 ) Wt 120 kg (264 lb) SpO2 96% BMI 37.88 kg/m??? Smoking Status Never BSA 2.43 m??? No Known Allergies Medications: Current Outpatient Medications on File Prior to Visit Medication Sig Dispense Refill amLODIPine (Norvasc) 10 mg tablet Take 1 tablet (10 mg) by mouth in the morning. 90 tablet 3 apixaban (Eliquis) 5 mg tablet Take 1 tablet (5 mg) by mouth in the morning and at bedtime. 180 tablet 3 cholecalciferol, vitamin D3, 250 mcg (10,000 unit) capsule Take 1 capsule by mouth twice a day. hydroCHLOROthiazide (HYDRODiuril) 25 mg tablet Take 25 mg by mouth in the morning. labetalol (Normodyne) 200 mg tablet Take 1 tablet (200 mg) by mouth in the morning and at bedtime. 180 tablet 3 losartan-hydrochlorothiazide (Hyzaar) 100-25 mg tablet Take 1 tablet by mouth in the morning. 90 tablet 3 magnesium oxide,aspartate,citr (Triple Magnesium Complex) 400 mg magnesium capsule Take 1 capsule by mouth. rosuvastatin (Crestor) 10 mg tablet Take 1 tablet (10 mg) by mouth at bedtime. 90 tablet 3 No current facility-administered medications on file prior to visit. Physical Exam: Constitutional: Appearance: Normal appearance, obese. Without apparent distress HENT: Head: Normocephalic and atraumatic. Nose: Nose normal. Mouth/Throat: Mouth: Mucous membranes are moist. Eyes: Extraocular Movements: Extraocular movements intact. Conjunctiva/sclera: Conjunctivae normal. Neck: Vascular: No JVD. Cardiovascular: Rate and Rhythm: Normal rate, irregular rhythm. Pulses: Radial pulses are 2+ b/l, irregular. Heart sounds: Normal heart sounds, S1 normal and S2 normal. Pulmonary: Effort: Pulmonary effort is normal. Breath sounds: Normal breath sounds. Abdominal: General: Bowel sounds are normal. Palpations: Abdomen is soft. Musculoskeletal: General: Normal range of motion. Cervical back: Normal range of motion. Right lower leg: No edema. Left lower leg: No edema. Skin: General: Skin is warm and dry. Capillary Refill: Capillary refill takes less than 2 seconds. Neurological: General: No focal deficit present. Mental Status: he is alert and oriented to person, place, and time. Psychiatric: Mood and Affect: Mood normal. Behavior: Behavior normal. Thought Content: Thought content normal. Judgment: Judgment normal. Labs: 12/26/23 Chol 164, Trig 89, HDL 49, LDL 97- BUN 17, Sodium CR 1.00 GFR 82- normal NA 140, K+ 3.7 normal ALP 75, AST 19, ALT 17- normal CBC normal , potassium 3.9, chloride 103, CO2 31, BUN 20, creatinine 1 GFR 82% 11/19/2022 Sodium 141, potassium 3.9, chloride 105, CO2 30, BUN 14, serum creatinine 0.89, EGFR 94% Lipid profile: 12/05/2021 Total cholesterol 205, triglycerides 53, HDL 48, LDL 146 Imaging and other tests EKG today 06/23/24 A fib/flutter with variable AV block- EKG sent to Dr Meadows and D/W him about plan for cardioversion 08/07/23- Echo A-fib ablation: 08/17/2020 Stress test: 05/05/2019 Myocardial perfusion shows no evidence of ischemia. Myocardial perfusion is normal. There is no reversible or fixed defect at rest or stress. LVEF is 56%. No wall motion abnormality. No 3 times daily. The Tomas score (0) estimates an annual cardiovascular mortality of 1% and 5-year survival of 92% using the Tomas score there is intermediate probability of angiographic coronary disease. No ECG changes seen in patient with abnormal pretest ECG. Echo: 04/13/2019 Global left ventricular systolic function is normal (visually estimated EF 60%) The left ventricle is normal in size Left ventricle wall thickness is normal No regional wall motion abnormality Unable to assess diastolic dysfunction Normal right ventricular systolic function The right ventricle is normal in size The right atrium is moderately enlarged Unable to assess right-sided pressures due to lack of measurable tricuspid regurgitation Assessment/Plan: Mixed hyperlipidemia Lipid a (more content not included)... [facility] 06-03-2024 History of Present illness Narrative Images from the original note were not included. Patient ID: Jj Sky is a 69 y.o. male who presents for: Hypertension Patient is here for follow-up of elevated blood pressure. He is exercising and is adherent to a low-salt diet. Blood pressure is well controlled at home. Cardiac symptoms: lower extremity edema. Patient denies chest pain, dyspnea, irregular heart beat, and palpitations. Cardiovascular risk factors: advanced age (older than 55 for men, 65 for women), diabetes mellitus, dyslipidemia, hypertension, male gender, microalbuminuria, obesity (BMI >= 30 kg/m2), and sedentary lifestyle. Use of agents associated with hypertension: none. History of target organ damage: none. Hyperlipidemia Pt who presents for follow-up of dyslipidemia. A repeat fasting lipid profile was not done. The patient does not use medications that may worsen dyslipidemias (corticosteroids, progestins, anabolic steroids, diuretics, beta-blockers, amiodarone, cyclosporine, olanzapine). Exercise: daily. Diabetes Mellitus Patient presents for follow up of diabetes. Current symptoms include: none. Symptoms have stabilized. Patient denies hyperglycemia, hypoglycemia , increased appetite, paresthesia of the feet, and visual disturbances. Evaluation to date has included: hemoglobin A1C. Home sugars: patient does not check sugars. Review of Systems Constitutional: Negative for activity change and fatigue. Respiratory: Negative for cough, shortness of breath and wheezing. Cardiovascular: Negative for chest pain, palpitations and leg swelling. Neurological: Negative for light-headedness and headaches. Objective The patient is pleasant and in no acute distress. The neck is supple and trachea is midline. No masses are appreciated. The heart is irregular rate and rhythm without S3, S4. No murmur. The patient has normal respiratory pattern. The breath sounds are symmetrical without evidence of rhonchi or rales. No wheezing. The skin is warm and dry. The lower extremities have trace edema. The patient has good eye contact and speech is clear. Appropriate affect. Visit Vitals BP 130/76 Pulse 81 Ht 5' 10 Wt 266 lb SpO2 97% BMI 38.17 kg/m Smoking Status Never BSA 2.44 m Telephone on 12/30/2023 Component Date Value Ref Range Status Hemoglobin A1C 05/10/2024 7.0 (H) <5.7 % of total Hgb Final Comment: For someone without known diabetes, a hemoglobin A1c value of 6.5% or greater indicates that they may have diabetes and this should be confirmed with a follow-up test. For someone with known diabetes, a value <7% indicates that their diabetes is well controlled and a value greater than or equal to 7% indicates suboptimal control. A1c targets should be individualized based on duration of diabetes, age, comorbid conditions, and other considerations. Currently, no consensus exists regarding use of hemoglobin A1c for diagnosis of diabetes for children. This test was performed on the Abdir[employer] melina c503 platform. Effective 09/29/23, a change in test platforms from the [facility] [facility] to the [employer] melina c503 may have shifted HbA1c results compared to historical results. Based on laboratory validation testing conducted at [facility], the [employer] platform relative to the [employer] platform had an average increase in HbA1c value of < or = 0.3%. This difference is with in accepted variability established by the National Glycohemoglobin Standardization Program. Note that not all individuals will have had a shift in their results and direct comparisons between historical and current results for testing conducted on different platforms is not recommended. No Known Allergies Current Outpatient Medications on File Prior to Visit Medication Sig Dispense Refill amLODIPine (Norvasc) 10 MG tablet Take 10 mg by mouth 1 (one) time each day at the same time. cholecalciferol (Vitamin D-3) 250 MCG (81231 UT) capsule Take 1 capsule by mouth in the morning and 1 capsule before bedtime. Elastic Bandages & Supports ([employer] Firm Compression Socks) misc Knee high, 20-30 mmHg Put on in AM and take off in PM daily. 4 each 1 Eliquis 5 MG tablet Take 5 mg by mouth in the morning and 5 mg before bedtime. labetalol (Normodyne) 200 MG tablet Take 200 mg by mouth every 12 (twelve) hours. losartan-hydroCHLOROthiazide (Hyzaar) 100-25 MG tablet Take 1 tablet by mouth in the morning. Magnesium 400 MG capsule Take 1 capsule by mouth 1 (one) time each day at the same time. Multiple Vitamin (multivitamin) capsule Take 1 capsule by mouth 1 (one) time each day at the same time. rosuvastatin (Crestor) 10 MG tablet Take 1 tablet (10 mg) by mouth in the morning. 90 tablet 3 No current facility-administered medications on file prior to visit. 1. Benign essential hypertension (CMS/HCC) Chronic problem, stable, to goal. Comanage with Cardiology who filled his last prescriptions for him. - Comprehensive metabolic panel; Future - Comprehensive metabolic panel 2. Chronic atrial fibrillation (HCC) (CMS/HCC) Chronic problem, stable, asymptomatic. He appears to be rate controlled today. He is not in need of refills for the Eliquis 3. Hypertensive nephropathy (CMS/HCC) Chronic problem monitor longitudinally. We will check labs a six-month visit. 4. Chronic kidney disease, stage 2 (mild) - Comprehensive metabolic panel; Future - Comprehensive metabolic panel 5. Microalbuminuria Chronic problem, defining an aspect the nephropathy, with significant risk, uncertain progression requiring longitudinal monitoring, and moderate decision making. Microalbuminuria describes a moderate increase in the level of urine albumin. Normally, the kidneys filter albumin, so if the kidney leaks small amounts of albumin into the urine then it is a indicator of chronic kidney disease. Microalbuminuria is an independent indicator of increased cardiovascular risk among individuals and therefore can be used for risk stratification for cardiovascular disease. 6. Type 2 diabetes mellitus with stage 2 chronic kidney disease, without long-term current use of insulin (CMS/HCC) Chronic problem, stable, to goal with a hemoglobin A1c of 7. We discussed how I would prefer to have him below 6.5. We discussed options of medications versus lifestyle changes. He acknowledges that he is not getting specific exercise although busy, but he has been eating poorly. He is going to double his efforts to improve this. He understands if this is not improved for any comes in in 6 months we will need to consider medication therapy. - Comprehensive metabolic panel; Future - Hemoglobin A1c; Future - Comprehensive metabolic panel - Hemoglobin A1c 7. Diet-controlled diabetes mellitus (CMS/HCC) As above 8. Mixed dyslipidemia (CMS/HCC) Patient was unsure if he needed this. I asked him to check at home and call us back which he did. Prescription was filled by Cardiology. - Lipid panel; Future - Lipid panel 9. Morbid obesity due to excess calories (CMS/HCC) Discussed the importance of obtaining elevated heart rate for at least 30 minutes to count it as exercise. documented in this encounter [facility] 01-02-2024 Note Cardiology Clinic No te Subjective Jj Sky is a 68 y.o. year old male patient with past medical history including PAF s/p ablation by Dr. Meadows, HTN, IVONE compliant with cpap, and hyperlipidemia seen in follow-up. Patient adamantly denies any cardiac complaints or concerns. Patient denies any chest pain or shortness of breath. Patient denies any lower extremity edema, orthopnea, or proximal nocturnal dyspnea. No near-syncope or syncope. No dizziness or lightheadedness. He is tolerating his medications as prescribed. He denies any bleeding complications with Eliquis. He reports that his blood pressure has been well controlled at home. Patient Active Problem List Diagnosis Benign essential hypertension BiPAP (biphasic positive airway pressure) dependence Cardiomegaly Chronic diastolic heart failure (CMS/HCC) Edema of lower extremity History of basal cell carcinoma (BCC) of skin Aortic valve disorder Mitral valve disorder Mixed hyperlipidemia Morbid obesity (CMS/HCC) Obstructive sleep apnea syndrome PAF (paroxysmal atrial fibrillation) (CMS/HCC) Persistent atrial fibrillation (CMS/HCC) Peripheral venous insufficiency Pulmonary hypertension (CMS/HCC) Right bundle branch block Type 2 diabetes mellitus without complication (CMS/HCC) Vitamin D deficiency Chronic kidney disease, stage 2 (mild) Hypertensive nephropathy Microalbuminuria Mild concentric left ventricular hypertrophy (LVH) Mixed dyslipidemia Other seborrheic keratosis Age-related nuclear cataract of both eyes Amblyopia of right eye BMI 37.0-37.9, adult Diet-controlled diabetes mellitus (CMS/HCC) Dry eyes Family History Problem Relation Name Age of Onset Other (pacemaker) Mother Coronary artery disease Father Atrial fibrillation Sister Atrial fibrillation Brother Social History Tobacco Use Smoking status: Never Smokeless tobacco: Never Substance Use Topics Alcohol use: Yes Comment: moderate Review of Systems Cardiovascular: Negative for chest pain, cyanosis, dyspnea on exertion, irregular heartbeat, leg swelling, near-syncope, orthopnea, palpitations, paroxysmal nocturnal dyspnea and syncope. Musculoskeletal: Positive for joint pain. Objective Visit Vitals BP 150/70 (BP Location: Left arm, Patient Position: Sitting) Pulse 60 Ht 1.778 m (5' 10 ) Wt 121 kg (267 lb) SpO2 97% BMI 38.31 kg/m??? Smoking Status Never BSA 2.44 m??? Physical Exam General: Awake, alert, good spirits. NAD Pulm: Breath sounds clear to ascultation bilaterally with no wheeze, crackles or rhonchi Cards: Regular rate and rhythm, S1, S2. No S3 or S4 gallop. Murmur: none Abd: Soft, Nontender, physiologic bowel sounds are present Extr: Lower extremity edema: trace. Skin: warm, dry, well perfused Neuro: A&Ox3, No gross deficits Allergies No Known Allergies Medications Current Outpatient Medications: apixaban (Eliquis) 5 mg tablet, Take 1 tablet (5 mg) by mouth in the morning and at bedtime., Disp: 180 tablet, Rfl: 3 cholecalciferol, vitamin D3, 250 mcg (10,000 unit) capsule, Take 1 capsule by mouth twice a day., Disp: , Rfl: magnesium oxide,aspartate,citr (Triple Magnesium Complex) 400 mg magnesium capsule, Take 1 capsule by mouth., Disp: , Rfl: amLODIPine (Norvasc) 10 mg tablet, Take 1 tablet (10 mg) by mouth in the morning., Disp: 90 tablet, Rfl: 3 labetalol (Normodyne) 200 mg tablet, Take 1 tablet (200 mg) by mouth in the morning and at bedtime., Disp: 180 tablet, Rfl: 3 losartan-hydrochlorothiazide (Hyzaar) 100-25 mg tablet, Take 1 tablet by mouth in the morning., Disp: 90 tablet, Rfl: 3 rosuvastatin (Crestor) 10 mg tablet, Take 1 tablet (10 mg) by mouth at bedtime., Disp: 90 tablet, Rfl: 3 Recent Labs 03/01/2023 Sodium 141, potassium 3.9, chloride 103, CO2 31, BUN 20, creatinine 1 GFR 82% 11/19/2022 Sodium 141, potassium 3.9, chloride 105, CO2 30, BUN 14, serum creatinine 0.89, EGFR 94% Lipid profile: 12/05/2021 Total cholesterol 205, triglycerides 53, HDL 48, LDL 146 Imaging and other tests A-fib ablation: 08/17/2020 Stress test: 05/05/2019 Myocardial perfusion shows no evidence of ischemia. Myocardial perfusion is normal. There is no reversible or fixed defect at rest or stress. LVEF is 56%. No wall motion abnormality. No 3 times daily. The Tomas score (0) estimates an annual cardiovascular mortality of 1% and 5-year survival of 92% using the Tomas score there is intermediate probability of angiographic coronary disease. No ECG changes seen in patient with abnormal pretest ECG. Echo: 04/13/2019 Global left ventricular systolic function is normal (visually estimated EF 60%) The left ventricle is normal in size Left ventricle wall thickness is normal No regional wall motion abnormality Unable to assess diastolic dysfunction Normal right ventricular systolic function The right ventricle is normal in size The right atrium is moderately enlarge (more content not included)... [facility] 01-02-2024 Note Patient here for 6 m o follow up hyperlipidemia, hypertension, and PAF. Had echo in Jul 2023. Had routine labs last week. Says his BP at home when he checks it runs between 125-135/70's. Denies chest pain, SOB, palpitations, lightheadedness/syncope, and bleeding on Eliquis. [facility] Evaluation note Diagnosis Family history of colon cancer- Primary Family history of malignant neoplasm of gastrointestinal tract Encounter for screening for malignant neoplasm of colon documented in this encounter [facility] HealthcareEvaluation note* Diagnosis Diet-controlled diabetes mellitus (CMS/HCC)- Primary Age-related nuclear cataract of both eyes Dry eyes Unspecified tear film insufficiency Amblyopia of right eye Unspecified amblyopia documented in this encounter [facility] HealthcareEvaluation note* Diagnosis Benign essential hypertension (CMS/HCC) Essential hypertension, benign Chronic atrial fibrillation (HCC) (CMS/HCC) Atrial fibrillation Hypertensive nephropathy (CMS/HCC) Unspecified hypertensive kidney disease with chronic kidney disease stage I through stage IV, or unspecified Chronic kidney disease, stage 2 (mild) Microalbuminuria Proteinuria Type 2 diabetes mellitus with stage 2 chronic kidney disease, without long-term current use of insulin (CMS/HCC) Diet-controlled diabetes mellitus (CMS/HCC) Mixed dyslipidemia (CMS/HCC) Morbid obesity due to excess calories (CMS/HCC) documented in this encounter [facility] Healthcare[facility] note* Diagnosis Family history of colon cancer- Primary Family history of malignant neoplasm of gastrointestinal tract documented in this encounter [facility] note* Diagnosis Obstructive sleep apnea- Primary Obstructive sleep apnea (adult) (pediatric) BiPAP (biphasic positive airway pressure) dependence Dependence on other enabling machine Morbid obesity due to excess calories (CMS/HCC) Pulmonary hypertension (CMS/HCC) Other chronic pulmonary heart diseases Benign essential hypertension (CMS/HCC) Essential hypertension, benign documented in this encounter [facility] HealthcareEvaluation note* Diagnosis Encounter for Medicare annual wellness exam- Primary Advance directive discussed with patient Encounter for screening for other disorder Screening for alcohol problem Screening for alcoholism Class 2 severe obesity with serious comorbidity and body mass index (BMI) of 39.0 to 39.9 in adult, unspecified obesity type (CMS/HCC) Pulmonary hypertension (CMS/HCC) Other chronic pulmonary heart diseases Chronic diastolic heart failure (CMS/HCC) Chronic diastolic heart failure Chronic atrial fibrillation (HCC) (CMS/HCC) Atrial fibrillation 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) Benign essential hypertension (CMS/HCC) Essential hypertension, benign Chronic kidney disease, stage 2 (mild) Type 2 diabetes mellitus with diabetic chronic kidney disease (CMS/HCC) Diet-controlled diabetes mellitus (CMS/HCC) Mixed dyslipidemia (CMS/HCC) documented in this encounter [facility] Summary Purpose Family History No Family History Records FoundNo Family History Records FoundNo Family History Records FoundNo Family History Records FoundNo Family History Records FoundNo Family History Records FoundNo Family History Records FoundNo Family History Records FoundNo Family History Records Found Advance Directives No Advanced Directives Records FoundNo Advanced Directives Records FoundNo Advanced Directives Records FoundNo Advanced Directives Records FoundNo Advanced Directives Records FoundNo Advanced Directives Records FoundNo Advanced Directives Records FoundNo Advanced Directives Records FoundNo Advanced Directives Records Found Additional Source Comments (unrecognized sect ion and content) No Status Records FoundNo Status Records FoundNo Status Records FoundNo Status Records FoundNo Status Records FoundNo Status Records FoundNo Status Records FoundNo Status Records FoundNo Status Records Found INFORMATION SOURCE (unrecogn ized section and content) DATE CREATED AUTHOR 12/16/2019 [facility] DATE CREATED AUTHOR AUTHOR'S ORGANIZ ATION 04/05/2021 [facility] DATE CREATED AUTHOR AUTHOR'S ORGANIZ ATION 06/06/2021 [facility] DATE CREATED AUTHOR AUTHOR'S ORGANIZ ATION 02/13/2022 [facility] dical Specialist DATE CREATED AUTHOR AUTHOR'S ORGANIZ ATION 03/09/2022 [facility] DATE CREATED AUTHOR AUTHOR'S ORGANIZ ATION 10/24/2024 [facility] DATE CREATED AUTHOR AUTHOR'S ORGANIZ ATION 10/30/2024 [facility] DATE CREATED AUTHOR AUTHOR'S ORGANIZ ATION 11/14/2024 [facility] DATE CREATED AUTHOR AUTHOR'S ORGANIZ ATION 11/26/2024 [facility] dical Specialists EPIC Reason for Visit (unrecogniz ed section and content) Reason Comments Schedule colonoscopy Brother had colon c ancer Specialty Diagnoses / Procedures Referred By Surya t Referred To Contact General Surgery Diagnoses Encounter for screening for malignant neoplasm of colon Procedures CT OFFICE/OUTPATIENT NEW HIGH MDM 60 MINUTES Deep Kimbrough MD [address] [facility] [address] [place] [address] Phone: tel: fax: Willian Manzano DO [address] [address] Phone: tel: fax: Referral ID Status Reason Start Date Expiration Date V isits Requested Visits Authorized [id number] Closed Specialty Services Required 07/20/2024 01/16/2025 1 1 Reason Comments Diabetic Eye Exam Reason Comments 1st po colonoscopy Path pending Reason Comments Cpap Reason Comments Annual Exam Care Teams (unrecognized sec tion and content) General Accountant Relationship Specialty Start Date End Date Deep Kimbrough MD [address] [place] [address] (Fax) PCP - ACO Reach 03/06/23 Deep Kimbrough MD [address] [place] [address] (Fax) PCP - General Family Medicine 08/05/24 Aston Nolasco DO [address] [place] [address] Referring Physician Ophthalmology 11/20/23 Nghia Ritter MD [address] [place] [address] Referring Physician Cardiology 11/20/23 General Accountant Relationship Specialty Start Date End Date Deep Kimbrough MD [address] [place], [place] [phone] (Fax) PCP - ACO Reach 03/06/23 Deep Kimbrough MD [address] [place], [place] [phone] PCP - General Family Medicine 08/05/24 Aston Nolasco DO [address] [place] [address] Referring Physician Ophthalmology 11/20/23 Nghia Ritter MD [address] [place] [id number] Referring Physician Cardiology 11/20/23 General Accountant Relationship Specialty Start Date End Date Deep Kimbrough MD [address] [place] [address] (Fax) PCP - ACO Reach 03/06/23 Deep Kimbrough MD [address] [place], [place] [phone] PCP - General Family Medicine 08/05/24 Aston Nolasco DO [address] [place] [address] Referring Physician Ophthalmology 11/20/23 Nghia Ritter MD [address] [place] [address] Referring Physician Cardiology 11/20/23 General Accountant Relationship Specialty Start Date End Date Deep Kimbrough MD [address] [place] [address] PCP - ACO Reach 03/06/23 Deep Kimbrough MD [address] [address] PCP - General Family Medicine 04/16/23 Aston Nolasco DO [address] [place] [phone] Referring Physician Ophthalmology 11/20/23 Nghia Ritter MD [address] [place] [phone] Referring Physician Cardiology 11/20/23 General Accountant Relationship Specialty Start Date End Date Deep Kimbrough MD [address] [place] [address] PCP - ACO Reach 03/06/23 Deep Kimbrough MD [address] [place] [address] PCP - General Family Medicine 04/16/23 Aston Nolasco DO [address] [place] [address] Referring Physician Ophthalmology 11/20/23 Nghia Ritter MD [address] [place] [address] Referring Physician Cardiology 11/20/23 General Accountant Relationship Specialty Start Date End Date Deep Kimbrough MD [address] [place] [address] PCP - ACO Reach 03/06/23 Deep Kimbrough MD [address] [place] [address] PCP - General Family Medicine 04/16/23 Aston Nolasco DO [address] [place] [address] Referring Physician Ophthalmology 11/20/23 Nghia Ritter MD [address] [place] [phone] Referring Physician Cardiology 11/20/23 General Accountant Relationship Specialty Start Date End Date Deep Kimbrough MD [address] [place] [address] PCP - ACO Reach 03/06/23 Deep Kimbrough MD [address] [place] [address] PCP - General Family Medicine 08/05/24 Aston Nolasco DO [address] [place] [address] Referring Physician Ophthalmology 11/20/23 Nghia Ritter MD [address] [place] [address] Referring Physician Cardiology 11/20/23 General Accountant Relationship Specialty Start Date End Date Deep Kimbrough MD [address] [place] [address] (Fax) PCP - ACO Reach 03/06/23 Deep Kimbrough MD [address] [place] [address] (Fax) PCP - General Family Medicine 08/05/24 Aston Nolasco DO [address] [place] [address] Referring Physician Ophthalmology 11/20/23 Nghia Ritter MD [address] [place] [address] Referring Physician Cardiology 11/20/23 General Accountant Relationship Specialty Start Date End Date Deep Kimbrough MD [address] [place] [address] (Fax) PCP - ACO Reach 03/06/23 Deep Kimbrough MD [address] [place] [address] (Fax) PCP - General Family Medicine 08/05/24 Aston Nolasco DO [address] [place] [address] Referring Physician Ophthalmology 11/20/23 Nghia Ritter MD [address] [place] [address] Referring Physician Cardiology 11/20/23 General Accountant Relationship Specialty Start Date End Date Deep Kimbrough MD [address] [place] [address] (Fax) PCP - ACO Reach 03/06/23 Deep Kimbrough MD [address] [place] [address] (Fax) PCP - General Family Medicine 08/05/24 Aston Nolasco DO [address] [place] [address] Referring Physician Ophthalmology 11/20/23 Nghia Ritter MD [address] [place] [address] Referring Physician Cardiology 11/20/23 General Accountant Relationship Specialty Start Date End Date Deep Kimbrough MD [address] [place] [address] (Fax) PCP - ACO Reach 03/06/23 Deep Kimbrough MD [address] [place] [address] (Fax) PCP - General Family Medicine 08/05/24 Aston Nolasco DO [address] [place] [address] Referring Physician Ophthalmology 11/20/23 Nghia Ritter MD [address] [place] [address] Referring Physician Cardiology 11/20/23 General Accountant Relationship Specialty Start Date End Date Deep Kimbrough MD [address] [place] [address] PCP - ACO Reach 03/06/23 Deep Kimbrough MD [address] [facility] [address] [place] [address] PCP - General Family Medicine 08/05/24 Aston Nolasco DO [address] [place] [address] Referring Physician Ophthalmology 11/20/23 Nghia Ritter MD [address] [place] [address] Referring Physician Cardiology 11/20/23 FOR RECORDS PERTAINING TO PATIENTS WHO ARE OR HAVE BEEN ENROLLED IN A CHEMICAL DEPENDENCY/SUBSTANCEABUSE PROGRAM, SOME INFORMATION MAY BE OMITTED. This clinical summary was aggregated from multiple sources. Caution should be exercised in using it in the provision of clinical care. This summary normalizes information from multiple sources, and as a consequence, information in this document may materially change the coding, format and clinical context of patient data. In addition, data may be omitted in some cases. CLINICAL DECISIONS SHOULD BE BASED ON THE PRIMARY CLINICAL RECORDS. [employer] [facility] provides no warranty or guarantee of the accuracy or completeness of information in this document.
== END 2024-12-09 12:11 | disposition home or self-care (01) ==
LOC: SLEEP 12:11
PROVIDERS: PCP Family Medicine; Visit Provider Family Medicine
DX: G47.33 Obstructive sleep apnea (adult) (pediatric) (principal)
CPT/HCPCS: 95806

== ENCOUNTER 2024-12-22 20:42 | Outpatient (OUT) | payer MEDICARE, OTHER, SELFPAY ==
--- OUTSIDE RECORDS SUMMARY | 2024-12-22 20:44 | XMS_ITS | CCD ---
Author Organization [facility] Care Team Providers Care Heel Seat Fitter Machine Name Role Phone DEEP KIMBROUGH Referring Unavailable NORBERTO MEADOWS Admitting Unavailable NORBERTO MEADOWS Attending Unavailable DEEP KIMBROUGH Primary Care Unavailable LUIS E, DR LEON Primary Care Unavailable IVELISSE LAST Attending Unavailable IVELISSE LAST Admitting Unavailable LUIS E, DR LEON Admitting Unavailable LUIS E, DR LEON Attending Unavailable LUIS E, DR LEON Consulting Unavailable LUIS E, DR LEON Primary Care Unavailable Deep Kimbrough MD Unavailable Aston Nolasco DO Unavailable Nghia Ritter MD Unavailable Deep Kimbrough MD Primary Care Provider Deep Kimbrough MD Unavailable Deep Kimbrough MD Primary Care Provider Deep Kimbrough MD Unavailable Deep Kimbrough MD Primary Care Provider [phone] NORBERTO MEADOWS Referring Unavailable NORBERTO MEADOWS Referring Unavailable MIKY CHARLTON Attending Unavailable VIPUL CARVAJAL Attending Unavailable IVELISSE LAST Attending Unavailable NGHIA RITTER Attending Unavailable NORBERTO MEADOWS Attending Unavailable NORBERTO MEADOWS Attending Unavailable NORBERTO MEADOWS Admitting Unavailable Filemon Ugarte Attending Unavailable Filemon Ugarte Admitting Unavailable NO FAMILY, PHYSICIAN Primary Care Unavailable DEEP KIMBROUGH Attending Unavailable LEEANN BRIDGES Attending Unavailable DEEP KIMBROUGH Attending Unavailable FILEMON ALVAREZ Attending Unavailable DEEP KIMBROUGH Referring Unavailable ASTON NOLASCO Attending Unavailable DEEP KIMBROUGH Attending Unavailable FILEMON ALVAREZ Attending Unavailable DEEP KIMBROUGH Attending Unavailable Medications Current Medications Medication Drug Class(es) Dates Sig (Normalized) Sig (Original) amLODIPine 10 mg oral tablet (20 sources) Dihydropyridine Calcium Channel Rui take 1 tablet by mouth once daily amLODIPine (Norvasc) 10 MG tablet Take 10 mg by mouth 1 (one) time each day at the same time. Active apixaban 5 mg oral tablet (20 sources) Factor Xa Inhibitor Start: 3 take 1 tablet by mouth in the morning Eliquis 5 MG tablet Take 5 mg by mouth in the morning and 5 mg before bedtime. 04/04/2023 Active cholecalciferol 0.25 mg oral capsule (20 sources) Vitamin D take 1 capsule by mouth in the morning cholecalciferol (Vitamin D-3) 250 MCG (00084 UT) capsule Take 1 capsule by mouth in the morning and 1 capsule before bedtime. Active Elastic Bandages & Supports ([employer] Firm Compression Socks) misc (20 sources) Start: 3 Elastic Bandages & Supports ([employer] Firm Compression Socks) misc Indications: Venous (peripheral) insufficiency Knee high, 20-30 mmHg Put on in AM and take off in PM daily. 4 each 1 09/17/2023 Active hydroCHLOROthiazide 25 mg / losartan potassium 100 mg oral tablet (20 sources) Thiazide Diuretic, Angiotensin 2 Receptor Rui Start: 3 take 1 tablet by mouth in the morning losartan-hydroCHLO ROthiazide (Hyzaar) 100-25 MG tablet Take 1 tablet by mouth in the morning. 04/03/2023 Active labetalol hydrochloride 200 mg oral tablet (20 sources) beta-Adrenergic Rui take 1 tablet by mouth every twelve hours labetalol (Normodyne) 200 MG tablet Take 200 mg by mouth every 12 (twelve) hours. Active Magnesium (20 sources) take 1 capsule by mouth once daily Magnesium 400 MG capsule Take 1 capsule by mouth 1 (one) time each day at the same time. Active Multiple Vitamin (multivitamin) capsule (20 sources) take 1 capsule by mouth once daily Multiple Vitamin (multivitamin) capsule Take 1 capsule by mouth 1 (one) time each day at the same time. Active rosuvastatin calcium 10 mg oral tablet (20 sources) HMG-CoA Reductase Inhibitor Start: 3 take 1 tablet by mouth in the morning rosuvastatin (Crestor) 10 MG tablet Indications: Mixed dyslipidemia (CMS/HCC) Take 1 tablet (10 mg) by mouth in the morning. 90 tablet 3 05/29/2023 Active triamcinolone acetonide 1 mg/ml topical cream (2 sources) Corticosteroid Start: triamcinolone (Kenalog) 0.1 % cream Indications: Stasis dermatitis of both legs Apply to affected areas on legs and back, up to twice a day when flared, do not use one the face, groin, or underarms, 30 day supply 454 g 11 12/16/2024 Active Start: 12-16-2024 triamcinolone (Kenalog) 0.1 % cream Indications: Stasis dermatitis of both legs Apply to affected areas on legs and back, up to twice a day when flared, do not use one the face, groin, or underarms, 30 day supply 454 g 12/16/2024 Active Completed/Discontinued Medications Medication Drug Class(es) Dates [...] fibrillation, unspecified] Onset: 05-22-2023 05-22-2023 Chronic Cataract (20 sources) Bilateral age-related nuclear cataracts; Translations: [Age-related nuclear cataract, bilateral] Onset: 08-18-2023 08-18-2023 Chronic Chronic kidney disease (20 sources) Chronic kidney disease stage 2; Translations: [Chronic kidney disease, stage 2 (mild)] Onset: 05-22-2023 05-22-2023 Chronic Conduction disorders (20 sources) Right bundle branch block; Translations: [Unspecified [...] disease] Onset: 09-26-2015 05-22-2023 Chronic Nutritional deficiencies (20 sources) Vitamin D deficiency; Translations: [Vitamin D deficiency, unspecified] Onset: 05-22-2023 05-22-2023 Chronic Other aftercare (1 source) Encounter for follow-up examination after completed treatment for conditions other than malignant neoplasm; Translations: [Encounter for follow-up examination after completed treatment for conditions other than malignant neoplasm] Onset: 09-29-2024 Episodic Other and ill-defined heart disease (20 sources) Cardiomegaly; Translations: [Cardiomegaly] Onset: 05-22-2023 05-22-2023 Chronic Other and ill-defined heart disease (20 sources) Cardiomegaly; Translations: [Cardiomegaly] Onset: 09-26-2015 05-29-2023 Chronic Other and unspecified benign neoplasm (2 sources) Melanocytic nevus of trunk; Translations: [Melanocytic nevi of trunk] 12-16-2024 Episodic Other diseases of veins and lymphatics (2 sources) Disorder of vein of lower extremity; Translations: [Venous insufficiency (chronic) (peripheral)] 12-16-2024 Episodic Other non-epithelial cancer of skin (20 sources) History of malignant basal cell neoplasm of skin; Translations: [Personal history of other malignant neoplasm of skin] Onset: 01-06-2023 05-29-2023 Episodic Other nutritional; endocrine; and metabolic disorders (20 sources) Morbid obesity; Translations: [Morbid (severe) obesity due to excess calories] Onset: 05-22-2023 05-22-2023 Chronic Other nutritional; endocrine; and metabolic disorders (2 sources) Severe obesity; Translations: [Class 2 severe obesity with serious comorbidity and body mass index (BMI) of 39.0 to 39.9 in adult, unspecified obesity type (CMS/[facility])] 11-05-2024 Chronic Other skin disorders (20 sources) Seborrheic keratosis; Translations: [Other seborrheic keratosis] Onset: 05-22-2023 05-22-2023 Episodic Other skin disorders (2 sources) Lentiginosis; Translations: [Other melanin hyperpigmentation] 12-16-2024 Episodic Eilzabeth-; endo-; and myocarditis; cardiomyopathy (except that caused by tuberculosis or sexually transmitted disease) (2 sources) Cardiomyopathy in diseases classified elsewhere; Translations: [Cardiomyopathy in diseases classified elsewhere] Onset: 06-23-2024 Chronic Pulmonary heart disease (20 sources) Pulmonary hypertension; Translations: [Pulmonary hypertension, unspecified] Onset: 01-06-2023 05-22-2023 Chronic Residual codes; unclassified (20 sources) 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; Translations: [Dependence on other enabling machines and devices] Onset: 05-22-2023 05-22-2023 Chronic Residual codes; unclassified (20 sources) Obstructive sleep apnea syndrome; Translations: [Obstructive [...] Documented Date Episodic/Chronic Blindness and vision defects (20 sources) Amblyopia of right eye; Translations: [Unspecified amblyopia, right eye] Onset: 08-18-2023 08-18-2023 Episodic Genitourinary symptoms and ill-defined conditions (20 sources) Microalbuminuria; Translations: [Proteinuria, unspecified] Onset: 05-22-2023 05-22-2023 Episodic Mood disorders (6 sources) Mood disorders Onset: 11-01-2024 11-01-2024 Other diseases of veins and lymphatics (20 sources) Peripheral venous insufficiency; Translations: [Venous insufficiency (chronic) (peripheral)] Onset: 05-22-2023 05-22-2023 Episodic Other diseases of veins and lymphatics (2 sources) Venous insufficiency (chronic) (peripheral); Translations: [Venous insufficiency (chronic) (peripheral)] Onset: 01-06-2023 Episodic Other eye disorders (20 sources) Dry eyes; Translations: [Dry eye syndrome of bilateral lacrimal glands] Onset: 08-18-2023 08-18-2023 Episodic Other nutritional; endocrine; and metabolic disorders (20 sources) Body mass index 30+ - obesity; Translations: [Body mass index (BMI) 37.0-37.9, adult] Onset: 10-23-2023 Resolved: 09-22-2024 10-23-2023 Chronic Other screening for suspected conditions (not mental disorders or infectious disease) (20 sources) Patient encounter status; Translations: [Encounter for screening for malignant neoplasm of colon] Onset: 08-25-2024 Resolved: 09-22-2024 08-25-2024 Episodic Residual codes; unclassified (19 sources) Family history of cancer of colon; Translations: [Family history of malignant neoplasm of digestive organs] Onset: 08-25-2024 08-25-2024 Episodic Unclassified (1 source) CONTACT W/AND (SUSP) EXPOS COVID-19; Translations: [CONTACT W/AND (SUSP) EXPOS COVID-19] Onset: 02-20-2022 Results Test Name Value Interpretation Reference Range Facility [facility] 11-11-2024 Albumin [Mass/Vol] 4.3 g/dL Normal 3.6-5.1 [facility] Comment on above: Performed By: #### 4 , 0 #### [facility] of [address], [address] [place] [address] Offset Machine Operator: Trever Guillen MD #### [id number] #### [facility] [address] [place] [address] Offset Machine Operator: Krissy Pickens Albumin/Globulin [Mass ratio] 1.7 {ratio} Normal 1.0-2.5 [facility] Comment on above: Performed By: #### 4 , 7599 #### [facility] [address], [address] [place] [address] Offset Machine Operator: Trever Guillen MD #### [id number] #### [facility] [address] Offset Machine Operator: Krissy Pickens ALP [Catalytic activity/Vol] 73 U/L Normal 35-144 [facility] Comment on above: Performed By: #### 4 , 7599 #### [facility] [address], [address] [place] [address] Offset Machine Operator: Trever Guillen MD #### [id number] #### [facility]-[address] Offset Machine Operator: Krissy Pickens ALT [Catalytic activity/Vol] 16 U/L Normal 9-46 [facility] Comment on above: Performed By: #### 4 , 0 #### [facility] [address], [address] [place] [address] Offset Machine Operator: Trever Guillen MD #### [id number] #### [facility] [address] [place], [place] [phone] Offset Machine Operator: Krissy Pickens AST [Catalytic activity/Vol] 15 U/L Normal 10-35 [facility] Comment on above: Performed By: #### 4 , 0 #### [facility] [address], [address] [place] [address] Offset Machine Operator: Trever Guillen MD #### [id number] #### [facility] [address] [place], [place] [phone] Offset Machine Operator: Krissy Pickens Bilirubin [Mass/Vol] 0.8 mg/dL Normal 0.2-1.2 [facility] Comment on above: Performed By: #### 4 , 0 #### [facility] [address], [address] [place] [address] Offset Machine Operator: Trever Guillen MD #### [id number] #### [facility] [address] [place] [address] Offset Machine Operator: Krissy Pickens BUN/CREATININE RATIO SEE NOTE: Normal 6-22 [facility] Comment on above: Result Comment: Not Reported: BUN and Creatinine are within reference range. Performed By: #### 4 , 7599 #### [facility] [address], [address] [place] [address] Offset Machine Operator: Trever Guillen MD #### [id number] #### [facility] [address] [place] [phone] Offset Machine Operator: Krissy Pickens Calcium [Mass/Vol] 9.0 mg/dL Normal 8.6-10.3 [facility] Comment on above: Performed By: #### 4 , 0 #### [facility] [address], [address] [place] [address] Offset Machine Operator: Trever Guillen MD #### [id number] #### [facility] [address] [place], [place] [phone] Offset Machine Operator: Krissy Pickens Chloride [Moles/Vol] 105 mmol/L Normal 98-110 [facility] Comment on above: Performed By: #### 4 96, 7600 #### [facility] [address], [address] [place] [address] Offset Machine Operator: Trever Guillen MD #### [id number] #### [facility] [address] [place], [place] [phone] Offset Machine Operator: Krissy Pickens CO2 [Moles/Vol] 30 mmol/L Normal 20-32 [facility] Comment on above: Performed By: #### 4 96, 0 #### [facility] [address], [address] [place] [address] Offset Machine Operator: Trever Guillen MD #### [id number] #### [facility] [address] Offset Machine Operator: Krissy Pickens Creatinine [Mass/Vol] 0.99 mg/dL Normal 0.70-1.35 [facility] Comment on above: Performed By: #### 4 , 0 #### [facility] [address], [address] [place] [address] Offset Machine Operator: Trever Guillen MD #### [id number] #### [facility] [address] [place], [place] [phone] Offset Machine Operator: Krissy Pickens GFR/1.73 sq M.predicted among non-blacks MDRD (S/P/Bld) [Vol rate/Area] 82 mL/min/{1.73_m2} Normal > OR = 60 [facility] Comment on above: Performed By: #### 4 , 0 #### [facility] [address], [address] [place] [address] Offset Machine Operator: Trever Guillen MD #### [id number] #### [facility] [phone] Offset Machine Operator: Krissy Pickens Globulin (S) [Mass/Vol] 2.5 g/dL Normal 1.9-3.7 [facility] Comment on above: Performed By: #### 4 , 7599 #### [facility] [address], [address] [place] [address] Offset Machine Operator: Trever Guillen MD #### [id number] #### [facility] Offset Machine Operator: Krissy Mckeoni Glucose [Mass/Vol] 140 mg/dL High 65-99 [facility] Comment on above: Result Comment: Fasting reference interval For someone without known diabetes, a glucose value >125 mg/dL indicates that they may have diabetes and this should be confirmed with a follow-up test. Performed By: #### 4 , 7599 #### [facility] [place] [address] Offset Machine Operator: Trever Guillen MD #### [id number] #### [facility] [address] [place] [address] Offset Machine Operator: Krissy Mckeoni Potassium [Moles/Vol] 3.7 mmol/L Normal 3.5-5.3 [facility] Comment on above: Performed By: #### 4 , 7599 #### [facility] [place] [address] Offset Machine Operator: Trever Guillen MD #### [id number] #### [facility] [address] [place] [phone] Offset Machine Operator: Krissy Mckeoni Protein [Mass/Vol] 6.8 g/dL Normal 6.1-8.1 [facility] Comment on above: Performed By: #### 4 , 7599 #### [facility] [place] [address] Offset Machine Operator: Trever Guillen MD #### [id number] #### [facility]-[address] [phone] Offset Machine Operator: Krissy Parmjit Flati Sodium [Moles/Vol] 143 mmol/L Normal 135-146 [facility] Comment on above: Performed By: #### 4 , 0 #### [facility] [address] [place] [address], [address] [place], [place] [phone] Offset Machine Operator: Trever Guillen MD #### [id number] #### [facility] [address] [place] [phone] Offset Machine Operator: Krissy Pickens Urea nitrogen [Mass/Vol] 16 mg/dL Normal 7- [facility] Comment on above: Performed By: #### 4 , 7600 #### [facility] [address] [facility], [address] [place] [phone] Offset Machine Operator: Trever Guillen MD #### [id number] #### [facility] [address] [place] [phone] Offset Machine Operator: Krissy Pickens HEMOGLOBIN A1con 11-11-2024 HEMOGLOBIN A1c 6.8 % of total Hgb High <5.7 [facility] Comment on above: Result Comment: [...] been faxed to the following: Faxed to: [phone] on: 11/11/24 06:59 Performed By: #### 4 , 0 #### [facility] [address] [place] [address], [address] [place], [place] [phone] Offset Machine Operator: Trever Guillen MD #### [id number] #### [facility] [address] [place] [phone] Offset Machine Operator: Krissy Pickens LIPID PANEL, STANDARDon 10-15 Cholesterol [Mass/Vol] 139 mg/dL Normal <200 [facility] Comment on above: Order Comment: FASTI NG:YES FASTING: YES Performed By: #### 4 96, 7600 #### [facility] [address] [place] [address], [address] [place] [address] Offset Machine Operator: Trever Guillen MD #### [id number] #### [facility] [address] [place] [phone] Offset Machine Operator: Krissy Mckeoni Cholesterol in HDL [Mass/Vol] 48 mg/dL Normal > OR = 40 [facility] Comment on above: Order Comment: FASTI NG:YES FASTING: YES Performed By: #### 4 , 0 #### [facility] [address], [address] [place] [address] Offset Machine Operator: Trever Guillen MD #### [id number] #### [facility] [phone] Offset Machine Operator: Krissy Mckeoni Cholesterol in LDL [Mass/Vol] 78 mg/dL Normal [...] LDL-C. Ten KINGSLEY et al. TERRY. 2013;310(19): 6122-4139 (http://[email or web address].Tailored/faq/[email or web address]) Performed By: #### 4 , 7599 #### [facility] [address] [facility], [address] [place], [place] [phone] Offset Machine Operator: Trever Guillen MD #### [id number] #### [facility]-[address] [phone] Offset Machine Operator: Krissy Gordon.total/Chol esterol in HDL [Mass ratio] 2.9 {ratio} Normal <5.0 [facility] Comment on above: Order Comment: FASTI NG:YES FASTING: YES Performed By: #### 4 , 0 #### [facility] [address] [facility], [address] [place] [address] Offset Machine Operator: Trever Guillen MD #### [id number] #### [facility] [address] [place] [address] Offset Machine Operator: Krissy Pickens NON HDL CHOLESTEROL 91 mg/dL (calc) Normal <130 [facility] Comment on above: Order Comment: FASTI NG:YES FASTING: YES Result Comment: For patients with diabetes plus 1 major ASCVD risk factor, treating to a non-HDL-C goal of <100 mg/dL (LDL-C of <70 mg/dL) is considered a therapeutic option. Performed By: #### 4 96, 0 #### [facility] [address] [place] [address], [address] [place] [address] Offset Machine Operator: Trever Guillen MD #### [id number] #### [facility] [address] [place] [address] Offset Machine Operator: Krissy Pickens Triglyceride [Mass/Vol] 57 mg/dL Normal <150 [facility] Comment on above: Order Comment: FASTI NG:YES FASTING: YES Performed By: #### 4 96, 0 #### [facility] [address] [place] [address], [address] [place] [address] Offset Machine Operator: Trever Guillen MD #### [id number] #### [facility] [address] [place], [place] [phone] Offset Machine Operator: Krissy Pickens Office Visiton 10-18-2024 Follow-up visit [id number] Jj Sky 1955 M Date Provider Department Center 10/18/2024 [id number]-PEHEUOMIKY ESCOBAR Family History Problem Relation Age of Onset Other Mother Coronary artery disease Father Atrial fibrillation Sister Atrial fibrillation Brother Family Status - Relation Status Age at Mother Father Sister Brother Level of Service:60845 SD OFFICE/OUTPATIENT ESTABLISHED MOD MDM 30 MIN Reason for Visit and Comments: Hypertension [990218] - He saw Dr. Meadows last month and told him he may increase labetalol to 400mg bid IF BP log reveals elevated BP's. He has not made the increase as he wanted to check with the doctor first. Atrial Fibrillation [80] - He remains asymptomatic, denies chest pain, SOB, palpitations, lightheadedness/syn cope, and bleeding on Eliquis. Normal [facility] PATHOLOGY REQUEST FOR LAB CO RPon 10-12-2024 PATHOLOGY REQUEST FOR LAB BRUNO [facility] Comment on above: See report. Scanned copy available in EMR. PATHOLOGY GI SPECIMEN [facility] Pathology Request for Lab Co rpon 09-29-2024 Pathology Request for Lab Bruno Normal [facility] Comment on above: Order Comment: PATHO LOGY GI SPECIMEN Result Comment: See report. Scanned copy available in EMR. PERFORMED BY: [place] [address] PATHOLOGIST SHELTERED WORKSHOP WORKER DOMINIQUE TANG M.D. Performed By: #### P ATH TO [facility] #### [address] Office Visiton 09-28-2024 Follow-up visit [id number] Jj Sky [address] [facility] Provider Department [place] 09/28/2024 Rodrick-NORBERTO MEADOWS LEIGH [facility] Family History Problem Relation Age of Onset Other Mother Coronary artery disease Father Atrial fibrillation Sister Atrial fibrillation Brother Family Status - Relation Status Age at Mother Father Sister Brother Level of Service:80047 SD OFFICE/OUTPATIENT NEW MODERATE MDM 45 MINUTES [facility] 36on 08-27-2024 [address] Ugarte' office. [facility] 36on 08-26-2024 36 Okay to hold Eliquis 2 days prior to colonscopy. Thanks [facility] [address] Dr. Ugarte of [facility] general surgery is requesting clearance for patient to hold Eliquis prior to colonoscopy. Please advise. Thanks. [facility] Office Visiton 08-04-2024 Follow-up visit [id number] Jj Sky 1955 M Date Provider Department Center 08/04/2024 NGHIA YANG LEIGH [facility] Family History Problem Relation Age of Onset Other Mother Coronary artery disease Father Atrial fibrillation Sister Atrial fibrillation Brother Family Status - Relation Status Age at Mother Father Sister Brother Level of Service:86717 SD OFFICE/OUTPATIENT ESTABLISHED MOD MDM 30 MIN Reason for Visit and Comments: Atrial Fibrillation [80] Hypertension [304651] Hyperlipidemia [182] [facility]: Jj Sky is a 69 [...] controlled. Will send him for cardioversion at [facility]. Currently denied chest pain, SOB, Orthopnea, or [...] and 5-year survival of 92% using the Otmas score there is intermediate probability of angiographic [...] symptoms Thony (more content not included)... Normal [facility] NURSNOTEon 06-30-2024 NURSNOTE RN educated pt on [...] of unit with all of belongings. Normal [facility] ALL CBC WITH AUTO DIFFon BASOPHILS ABSOLUTE AUTO 0.0 [facility] Healthcare Basophils/100 WBC (Bld) 0.1 % Low 0.2 - 2.0 % [facility] Eosinophils/100 WBC (Bld) 2.1 % 0.9 - 7.0 % [facility] Erythrocyte distribution width (RBC) [Ratio] 13.2 % 11.0 - 15.0 % [facility] Hematocrit (Bld) [Volume fraction] 39.0 % Low 42.0 - 54.0 % [facility] Hemoglobin (Bld) [Mass/Vol] 12.8 g/dL Low 14.0 - 18.0 g/dL [facility] IMMATURE GRANULOCYTES ABS AUTO 0.01 [facility] Immature granulocytes/100 WBC (Bld) 0.1 % 0.0 - 0.5 % [facility] Interpretation and review of laboratory results Abnormal [facility] LYMPHOCYTES ABSOLUTE AUTO 1.5 [facility] Lymphocytes/100 WBC (Bld) 20.4 % Low 20.5 - 60.0 % [facility] MCH (RBC) [Entitic mass] 28.8 pg 25.9 - 34.0 pg [facility] MCHC (RBC) [Mass/Vol] 32.8 g/dL 29.9 - 35.2 g/dL [facility] MCV (RBC) [Entitic vol] 87.6 fL 80.0 - 94.0 fL [facility] MONOCYTES ABSOLUTE AUTO 0.5 [facility] Monocytes/100 WBC (Bld) 7.6 % 1.7 - 12.0 % [facility] NEUTROPHILS ABSOLUTE AUTO 5.0 [facility] Neutrophils/100 WBC (Bld) 69.7 % 43.0 - 75.0 % [facility] Platelet mean volume (Bld) [Entitic vol] 10.4 fL 9.5 - 13.5 fL [facility] TBH EO # 0.2 [facility] PLT 179 [facility] RBC 4.45 Low [facility] WBC 7[facility]1 [facility] Healthcare Orders Onlyon 06-25-2024 Orders Only [id number] [place] aggarwal [address] [facility] Provider Department Center 06/25/2024 AALIYAH SEBASTIAN [facility] [place] [facility] Family History Problem Relation Age of Onset Other Mother Coronary artery disease Father Atrial fibrillation Sister Atrial fibrillation Brother Family Status - Relation Status Age at Mother Father Sister Brother [facility] Office Visiton 06-23-2024 Follow-up visit [id number] Jj Sky [address] [facility] Provider Department Center 06/23/2024 IVELISSE [facility] Family History Problem Relation Age of Onset Other Mother Coronary artery disease Father Atrial fibrillation Sister Atrial fibrillation Brother Family Status - Relation Status Age at Mother Father Sister Brother Level of Service:60377 SD OFFICE/OUTPATIENT ESTABLISHED MOD MDM 30 MIN Reason for Visit and Comments: Follow-up [185957] [facility] Office Visiton 01-02-2024 Follow-up visit [id number] Jj Sky [address] [facility] Provider Department [facility] [place] [facility] Family History Problem Relation Age of Onset Other Mother Coronary artery disease Father Atrial fibrillation Sister Atrial fibrillation Brother Family Status - Relation Status Age at Mother Father Sister Brother Level of Service:13030 SD OFFICE/OUTPATIENT ESTABLISHED LOW MDM 20 MIN Normal [facility]10 SARS-CoV-2 (COVID-19) RNA MIMI+probe Ql (Unsp spec) Detected Critically abnormal NOT DETECTED [facility] Comment on above: Result Comment: This test is not yet approved or cleared by the [place] FDA. When there are no FDA-approved or cleared tests available, and other criteria are met, FDA can make tests available under an emergency access mechanism called an Emergency Use Authorization (EUA). The EUA for this test is supported by the Radio/Tv Technician of Health and Human Service's (HHS's) declaration [...] used). Performed By: #### C VDTB #### [facility] [address] [place], [place] [address] Dr. Alex Rosa [facility] Metabolic Pane [facility] 02-11-2022 Albumin [Mass/Vol] 4.7 g/dL Normal 3.6-5.1 Kelly [facility] Front Office Supervisor Comment on above: Performed By: #### L IPD, CMP #### [facility] [address] [place], [place] [id number] Albumin/Globulin [Mass ratio] 2.1 {ratio} Normal 1.0-2.5 [facility] Front Office Supervisor Comment on above: Performed By: #### L IPD, CMP #### [facility] [address], [place] [id number] ALP [Catalytic activity/Vol] 95 U/L Normal 40-129 [facility] Front Office Supervisor Comment on above: Performed By: #### L IPD, CMP #### [facility] [address] [place], [place] [id number] ALT [Catalytic activity/Vol] 17 U/L Normal 9-46 [facility] Comment on above: Result Comment: 09/12 Female reference range changed. Performed By: #### L IPD, CMP #### [facility] [address], [place] [id number] Anion gap [Moles/Vol] 14 mmol/L Normal 12-20 [facility] Comment on above: Result Comment: Effe ctive 10/18/2019 reference range changed. Performed By: #### L IPD, CMP #### [facility] [address], [place] [id number] AST [Catalytic activity/Vol] 18 U/L Normal 10-40 [facility] Comment on above: Performed By: #### L IPD, CMP #### [facility] [address], [place] [id number] Bilirubin [Mass/Vol] 0.66 mg/dL Normal 0.30-1.[address] [facility] Comment on above: Performed By: #### L IPD, CMP #### [facility] [address], [place] [id number] BUN/CREA 21 Ratio Normal 6-22 [facility] Comment on above: Performed By: #### L IPD, CMP #### [facility] [address], [place] [id number] Calcium [Mass/Vol] 9.2 mg/dL Normal 8.6-10.2 [facility] Comment on above: Performed By: #### L IPD, CMP #### [facility] [address], [place] [id number] Chloride [Moles/Vol] 104 mmol/L Normal 98-[address] [facility] Comment on above: Performed By: #### L IPD, CMP #### [facility] [address] [facility] [place] [id number] CO2 [Moles/Vol] 29 mmol/L Normal 20-31 [facility] Comment on above: Performed By: #### L IPD, CMP #### [facility] [address] [facility] [place] [id number] Creatinine [Mass/Vol] 1.0 mg/dL Normal 0.7-1.4 [facility] Front Office Supervisor Comment on above: Performed By: #### L IPD, CMP #### [facility] [address], [place] [id number] eGFRAA 86 mL/min/1.73m2 Normal >60 [facility] Front Office Supervisor Comment on above: Performed By: #### L IPD, CMP #### [facility] [address], [place] [id number] eGFRNAA 71 mL/min/1.73m2 Normal >60 [facility] Front Office Supervisor Comment on above: Performed By: #### L IPD, CMP #### [facility] [address], [place] [id number] Globulin (S) [Mass/Vol] 2.2 g/dL Normal 1.9-3.7 [facility] Front Office Supervisor Comment on above: Performed By: #### L IPD, CMP #### [facility] [address], [place] [id number] Glucose [Mass/Vol] 128 mg/dL High 65-99 [facility] Front Office Supervisor Comment on above: Result Comment: For FASTING Glucose --- ADA reference ranges: Normal 65-99 mg/dl Prediabetes 100-125 Diabetes >/= 126 Performed By: #### L IPD, CMP #### [facility] [address], [place] [id number] Potassium [Moles/Vol] 4.0 mmol/L Normal 3.5-5.5 [facility] Front Office Supervisor Comment on above: Performed By: #### L IPD, CMP #### [facility] [address], [place] [id number] Protein [Mass/Vol] 6.9 g/dL Normal 6.1-8.1 [facility] Front Office Supervisor Comment on above: Performed By: #### L IPD, CMP #### [facility] [address], [place] [id number] Sodium [Moles/Vol] 143 mmol/L Normal 135-146 [facility] Front Office Supervisor Comment on above: Performed By: #### L IPD, CMP #### [facility] [address], [place] [id number] Urea nitrogen [Mass/Vol] 21 mg/dL Normal 7-25 [facility] Comment on above: Performed By: #### L IPD, CMP #### [facility] [address], [place] [id number] Lipid Panelon 02-11-2022 Cholesterol [Mass/Vol] 149 mg/dL Normal 125-200 [facility] Comment on above: Result Comment: Low risk < 200mg/dL Borderline risk 201-239 mg/dl High risk > or equal to 240 Performed By: #### L IPD, CMP #### [facility] [address], [place] [id number] Cholesterol in HDL [Mass/Vol] 49 mg/dL Normal >40 [facility] Comment on above: Result Comment: High Cardiovascular Risk HDL <40 mg/dL Low Cardiovascular Risk HDL > or equal to 60 mg/dl Performed By: #### L IPD, CMP #### [facility] [address] [place], [place] [id number] Cholesterol in LDL [Mass/Vol] 90 mg/dL Normal [facility] Comment on above: Result Comment: LDL ATP III CLASSIFICATION LDL less than 100 mg/dl Optimal LDL 100-129 mg/dl Near or above optimal LDL 130-159 Borderline high LDL 160-189 High LDL greater than 189 mg/dl Very High Performed By: #### L IPD, CMP #### [facility] [address] [place], [place] [id number] Cholesterol in VLDL [Mass/Vol] 10 mg/dL Normal [facility] Comment on above: Performed By: #### L IPD, CMP #### [facility] [address], [place] [id number] Cholesterol.total/Chol esterol in HDL [Mass ratio] 3 {ratio} Normal [facility] Comment on above: Performed By: #### L IPD, CMP #### [facility] [address] [place], [place] [id number] Triglyceride [Mass/Vol] 52 mg/dL Normal 30-150 [facility] Comment on above: Result Comment: TRIG ATPIII CLASSIFICATIONS TRIG less than 150 mg/dl Normal TRIG 150-199 mg/dl Borderline High TRIG 200-500 mg/dl High TRIG greather than 500 mg/dl Very High Performed By: #### L IPD, CMP #### [facility] [address] [place], [place] [id number] Hemoglobin A1Con 12-05-2021 EAG 125.50 Normal [facility] Comment on above: Performed By: #### A 1C #### [facility] [address] [facility] [place] [id number] HbA1c (Bld) [Mass fraction] 6.0 % Normal 4.0-6.0 [facility] Front Office Supervisor Comment on above: Performed By: #### A 1C #### [facility] [address], [place] [id number] Lipid Panelon 12-05-2021 Cholesterol [Mass/Vol] 205 mg/dL High 125-200 [facility] Comment on above: Result Comment: Low risk < 200mg/dL Borderline risk 201-239 mg/dl High risk > or equal to 240 Performed By: #### L IPD #### [facility] [address], [place] [id number] Cholesterol in HDL [Mass/Vol] 48 mg/dL Normal >40 [facility] Front Office Supervisor Comment on above: Result Comment: High Cardiovascular Risk HDL <40 mg/dL Low Cardiovascular Risk HDL > or equal to 60 mg/dl Performed By: #### L IPD #### [facility] [address], [place] [id number] Cholesterol in LDL [Mass/Vol] 146 mg/dL Normal [facility] Front Office Supervisor Comment on above: Result Comment: LDL ATP III CLASSIFICATION LDL less than 100 mg/dl Optimal LDL 100-129 mg/dl Near or above optimal LDL 130-159 Borderline high LDL 160-189 High LDL greater than 189 mg/dl Very High Performed By: #### L IPD #### [facility] [address], [place] [id number] Cholesterol in VLDL [Mass/Vol] 11 mg/dL Normal [facility] Front Office Supervisor Comment on above: Performed By: #### L IPD #### [facility] [address] [facility] [place] [id number] Cholesterol.total/Chol esterol in HDL [Mass ratio] 4 {ratio} Normal [facility] Front Office Supervisor Comment on above: Performed By: #### L IPD #### [facility] [address] [place], [place] [id number] Triglyceride [Mass/Vol] 53 mg/dL Normal 30-150 [facility] Front Office Supervisor Comment on above: Result Comment: TRIG ATPIII CLASSIFICATIONS TRIG less than 150 mg/dl Normal TRIG 150-199 mg/dl Borderline High TRIG 200-500 mg/dl High TRIG greather than 500 mg/dl Very High Performed By: #### L IPD #### [facility] [address], [place] [id number] Consent for COVID Vaccineon 01-13-2021 SARS-CoV-2 (COVID-19) RNA MIMI+probe Ql (Unsp spec) [id number] 625#1.00CD:127 [facility] Consent for COVID Vaccineon 12-10-2020 SARS-CoV-2 (COVID-19) RNA MIMI+probe Ql (Unsp spec) [id number] 124#1.00CD:127 [facility] Consent for Treatmenton 11-14 Consent for Treatment [id number] 219#1.00CD:127 [facility] Coding Summary.on 12-06-2020 Coding Summary. CODING DATE: 12/06/2020 FINAL [facility] STATUS: PAYOR: [employer] DESCRIPTION 1492 [employer] - Level [...] in slightly different terminology. Coded By: Prisca Aguilra CphT Date Saved: 12/06/2020 09:26 am [facility] *MRSA/MSSA CULTUREon 020 *MRSA/MSSA CULTURE Clinical Report: (D) Specimen: NASAL SWAB Collected: 08/17/2020 07:15 Status: Final Last Updated: 08/18/2020 08:48 ISO (Final) No Methicillin Resistant Staphylococcus aureus Isolated (MRSA) ISO (Final) No Methicillin Sensitive Staphylococcus aureus Isolated (MSSA) Normal [facility] Comment on above: Performed By: #### 3 1302 #### [facility] [address] [place] [address], [facility] Cardiovascular Lab Reporton 08-17-2020 Cardiovascular Lab Report [facility] Patient Name: Jose Daniel [facility] MR #: [id number] Physician: Norberto Meadows MD Department of Service Date: 08/17/2020 Medicine Birthdate: 1955 Division of Room #: [facility] Cardiology Adult Cardiovascular Services [facility] [address] [facility]. [place] [address] Cardiovascular Laboratory Report ATRIAL FIBRILLATION ABLATION PROCEDURE [...] mildly enlarged. Esophagus was mapped using the Help ScoutUND 3D mapping software and noted to be [...] c (more content not included)... Normal [facility] POC GLUCOSE LABon 08-17-2020 Glucose [Mass/Vol] 126 mg/dL High 70-100 [facility] Comment on above: Performed By: #### 8 [id number] #### [facility] [address] Dermatopathologyon Dermatopathology Pathologist: ABELARDO UNGER MD Date of Procedure: 12/13/2019 Date Received: 12/15/2019 Date Reported 12/16/2019 Submitting Physician: LEEANN PUENTE MD Location: [facility] FINAL DIAGNOSIS SKIN, GLABELLA, BIOPSY: VERRUCOUS KERATOSIS, PRESENT ON THE DEEP AND PERIPHERAL MARGIN. Electronically Signed Out by ABELARDO UNGER M.D. Electronically Signed Out By ABELARDO UNGER MD/[facility] Microscopic Description: Microscopic examination reveals papillomatosis of benign appearing keratinocytes with coarse keratohyalin granules. Clinical History: 0.8 x 0.5 cm. SCC vs. Verruca. Biopsy. Specimens Submitted As: A: SKIN, GLABELLA Gross Description: Received in formalin is one zepeda-brown piece of skin measuring [id number]. The specimen is inked and embedded in toto. dcp/12/15/2019 Normal [facility] Comment on above: Performed By: #### D #### Dermatopathology Vital Signs Date Time Vital Sign Value Performing Clinician Faci lity 11-01-2024 16:24-0500 Body height 177.8 cm Deep Kimbrough MD Work Phone: [facility] 11-01-2024 16:24-0500 Body mass index (BMI) [Ratio] 39.17 kg/m2 Deep Kimbrough MD Work Phone: [facility] 11-01-2024 16:24-0500 Body weight 123.83 kg Deep Kimbrough MD Work Phone: [facility] 09-30-2024 08:24-0500 Body height 177.8 cm Deep Kimbrough MD Work Phone: [facility] 09-30-2024 08:24-0500 Body mass index (BMI) [Ratio] 38.74 kg/m2 Deep Kimbrough MD Work Phone: [facility] 09-30-2024 08:24-0500 Body weight 122.47 kg Deep Kimbrough MD Work Phone: [facility] 09-30-2024 08:24-0500 Heart rate 54 /min Deep Kimbrough MD Work Phone: [facility] 09-30-2024 08:24-0500 SaO2% (BldA) [Mass fraction] 97 % Deep Kimbrough MD Work Phone: [facility] 08-25-2024 10:15-0500 Body height 177.8 cm Filemon Erazo MD Work Phone: [facility] 08-25-2024 10:15-0500 Body mass index (BMI) [Ratio] 38.74 kg/m2 Filemon Erazo MD Work Phone: [facility] 08-25-2024 10:15-0500 Body weight 122.47 kg Filemon Erazo MD Work Phone: [facility] 08-25-2024 10:15-0500 Diastolic blood pressure 74 mm[Hg] Filemon Erazo MD Work Phone: [facility] 08-25-2024 10:15-0500 Systolic blood pressure 132 mm[Hg] Filemon Erazo MD Work Phone: [facility] 06-03-2024 08:45-0400 Body height 177.8 cm Deep Kimbrough MD Work Phone: [facility] 06-03-2024 08:45-0400 Body mass index (BMI) [Ratio] 38.17 kg/m2 Deep Kimbrough MD Work Phone: [facility] 06-03-2024 08:45-0400 Body weight 120.66 kg Deep Kimbrough MD Work Phone: [facility] 06-03-2024 08:45-0400 Diastolic blood pressure 76 mm[Hg] Deep Kimbrough MD Work Phone: [facility] 06-03-2024 08:45-0400 Heart rate 81 /min Deep Kimbrough MD Work Phone: [facility] 06-03-2024 08:45-0400 SaO2% (BldA) [Mass fraction] 97 % Deep Kimbrough MD Work Phone: [facility] 06-03-2024 08:45-0400 Systolic blood pressure 130 mm[Hg] Deep Kimbrough MD Work Phone: [facility] Healthcare Encounters Encounter Date Encounter Type Care Provider Facility Start: 12-16-2024 End: 12-16-2024 JayaKrikle janet Bridges MD Work Phone: [facility] Start: 12-16-2024 End: 12-16-2024 JayaWooMeclarence Bridges MD Work Phone: [facility] Start: 12-16-2024 End: 12-16-2024 Office outpatient visit 15 minutes Leeann Bridges MD Work Phone: [facility] Comment on above: Seborrheic keratosis (Primary Dx); History of basal cell carcinoma; Lentigines; Melanocytic nevus of trunk; Stasis dermatitis of both legs Start: 12-16-2024 End: 12-16-2024 ambulatory LEEANN BRIDGES Not Available Start: 11-24-2024 End: 11-24-2024 Bamboo flowsfarshad Kimbrough MD Work Phone: [facility] Start: 11-24-2024 End: 11-24-2024 Bamboo janet Kimbrough MD Work Phone: [facility] Start: 11-24-2024 End: 11-24-2024 ambulatory DEEP KIMBROUGH Not Available Start: 10-25-2024 End: 10-25-2024 Bamboo flowsfarshad Kimbrough MD Work Phone: [facility] Start: 10-25-2024 End: 10-25-2024 Bamboo flowsfarshad Kimbrough MD Work Phone: [facility] [...] DEEP KIMBROUGH Not Available Start: 10-18-2024 ambulatory [facility] Start: 10-08-2024 End: 10-08-2024 Postop follow up visit related to original px Filemon Ugarte MD Work Phone: [facility] Comment on above: Family history of co zeina cancer (Primary Dx) Start: 10-08-2024 End: 10-08-2024 ambulatory FILEMON UGARTE V Not Available Start: 09-30-2024 End: 09-30-2024 [...] Start: 09-29-2024 End: 09-29-2024 ambulatory Filemon Ugarte Facility:[facility] Start: 09-29-2024 End: 10-12-2024 External Result Encounter Filemon Ugarte MD Work Phone: [facility] Unsolicited Start: 09-29-2024 End: 10-12-2024 External Result Encounter Filemon Erazo MD Work Phone: [facility] Unsolicited Start: 09-28-2024 End: 09-28-2024 ambulatory [facility] Start: 09-08-2024 End: 09-08-2024 Bamboo flowsheet Aston Nolasco DO Work Phone: [facility] Start: 09-08-2024 End: 09-08-2024 Bamboo flowsheet Aston Nolasco DO Work Phone: [facility] Start: 09-08-2024 End: 09-08-2024 ambulatory ASTON NOLASCO Not Available Start: 08-25-2024 End: 08-25-2024 Office outpatient new 45 minutes Filemon Ugarte MD Work Phone: [facility] Comment on above: Family history of co zeina cancer (Primary Dx); Encounter for screening for malignant neoplasm of colon Start: 08-25-2024 End: 08-25-2024 ambulatory FILEMON UGARTE V Not Available Start: 08-04-2024 End: 08-04-2024 ambulatory NGHIA [facility] Start: 06-30-2024 ambulatory [facility] Start: 06-30-2024 End: 06-30-2024 ambulatory [facility] Start: 06-25-2024 End: 06-25-2024 Clinisync Result Encounter Generic External Data Provider [facility] Department Unsolicited Start: 06-25-2024 End: 06-25-2024 Clinisync Result Encounter Generic External Data Provider [facility] Department Unsolicited Start: 06-23-2024 End: 06-23-2024 ambulatory IVELISSE LAST [facility] Start: 06-03-2024 End: 06-03-2024 Bamboo flowsheet Deep Kimbrough MD Work Phone: [facility] Start: 06-03-2024 End: 06-03-2024 Elliotto flowsheet Deep Kimbrough MD Work Phone: [facility] [...] Available Start: 01-02-2024 End: 01-02-2024 ambulatory VIPUL [facility] Start: 03-08-[address] DEEP KIMBROUGH Facil ity:[facility] Start: 02-20-2022 End: 02-20-[address] DEEP KIMBROUGH Facility:[facility] Start: 08-17-2020 End: 08-18-2020 ambulatory DEEP KIMBROUGH Facility:[facility] Procedures Date Procedure Procedure Detail Performing Clinician Start: 09-29-2024 PATHOLOGY REQUEST FO R LAB BRUNO Filemon Ugarte MD Work Phone: Start: 09-29-2024 Colonoscopy Filemon Erazo MD Work Phone: Start: 09-08-2024 End: 09-08-2024 [facility] medical xm&eval comprhnsv estab pt 1/> Diet-controlled [...] Screening for malign ant neoplasm of colon [facility] Start: 09-08-2026 Glaucoma screening Diabetes: R etinopathy Screening [facility] Start: 12-21-2025 End: 12-21-2025 Patient encounter procedure 12/21/2025 8:30 AM EDT Office Visit [facility] [address] [place] [address] Leeann Bridges MD [address] [place] [address] [facility] Start: 10-25-2025 Pneumococcal Vaccine : 65+ Years (1 of 2 - PCV) Pneumococcal Vaccine: 65+ Years (1 of 2 - PCV) [facility] Comment on above: Postponed from 02/04 (Patient Refused) Start: 09-21-2025 End: 09-21-2025 Patient encounter procedure 09/21/2025 10:00 AM EST Office Visit [facility] [address] [place] [address] Aston Nolasco DO [address] [place] [address] [facility] Start: 08-18-2025 Glaucoma screening Diabetes: R etinopathy Screening [facility] Start: 05-19-2025 End: 05-19-2025 Patient encounter procedure 05/19/2025 9:00 AM EDT Office Visit [facility] [address] [place] [address] Deep Kimbrough MD [address] [place] [address] [facility] Start: 05-10-2025 Hemoglobin A1c measurement Diabetes: Hemoglobin A1C [facility] Start: 12-16-2024 End: 12-16-2024 Patient encounter procedure [facility] Comment on above: Arrived Start: 11-25-2024 End: 11-25-2024 Patient encounter procedure [...] 11-10-2024 Hemoglobin A1c measurement Diabetes: Hemoglobin A1C [facility] Start: 11-03-2024 End: 06-03-2025 Comprehensive metabolic 2000 panel - Serum or Plasma Comprehensive metabolic panel Lab Routine Benign essential hypertension ([facility]) Chronic kidney disease, stage 2 (mild) Type 2 diabetes mellitus with stage 2 chronic kidney disease, without long-term current use of insulin ([facility]) Expected: 11/03/2024, Expires: 06/03/2025 [facility] Work Phone: Comment on above: Expected: 11/03/2024 , Expires: 06/03/2025 Start: 11-03-2024 End: 06-03-2025 Hemoglobin A1c/Hemoglobin.total in Blood Hemoglobin A1c Lab Routine Type 2 diabetes mellitus with stage 2 chronic kidney disease, without long-term current use of insulin ([facility]) Expected: 11/03/2024, Expires: 06/03/2025 [facility] Comment on above: Expected: 11/03/2024 , Expires: 06/03/2025 Start: 11-03-2024 End: 06-03-2025 Lipid 1996 panel - Serum or Plasma Lipid panel Lab Routine Mixed dyslipidemia ([facility]) Expected: 11/03/2024, Expires: 06/03/2025 [facility] Comment on above: Expected: 11/03/2024 , Expires: 06/03/2025 Start: 10-25-2024 End: 10-25-2024 Patient encounter procedure [facility] Comment on above: Encounter for Medica re annual wellness exam; Advance directive discussed with patient; Encounter for screening for other disorder; Screening for alcohol problem; Morbid obesity due to excess calories ([facility]) Start: 10-23-2024 Pneumococcal Vaccine : 65+ Years (1 of 2 - PCV) Pneumococcal Vaccine: 65+ Years (1 of 2 - PCV) [facility] Comment on above: Postponed from 02/04 (Patient Refused) Start: 10-08-2024 End: 10-08-2024 Patient encounter procedure 10/08/2024 9:30 AM EST Office Visit [facility] [address] [address] Filemon Ugarte MD [address] [facility] [address] [place] [address] [address] [facility] Start: 09-30-2024 End: 09-30-2024 Patient encounter procedure [facility] Comment on above: Obstructive sleep ap kenna; BiPAP (biphasic positive airway pressure) dependence; Morbid obesity due to excess calories (CMS/HCC) Start: 09-08-2024 End: 09-08-2024 Patient encounter procedure [facility] Comment on above: Arrived Start: 08-23-2024 End: 08-23-2024 Patient encounter procedure 08/23/2024 9:00 AM EST Office Visit [facility] [address] [place] [address] Aston Nolasco DO [address] [place] [address] [facility] Start: 06-13-2024 Influenza vaccination Influenza Vacc ine (#1) [facility] Start: 06-09-2024 Screening for malign ant neoplasm of colon [facility] Start: 06-03-2024 End: 06-03-2024 Patient encounter procedure 06/03/2024 9:00 AM EDT Office Visit [facility] [address] [address] Deep Kimbrough MD [address] [place] [address] (Fax) Benign essential hypertension (CMS/HCC); Chronic atrial fibrillation [...] disease, without long-term current use of insulin ([facility]/HCC); Diet-controlled diabetes mellitus ([facility]/HCC); Mixed dyslipidemia ([facility]/HCC); Morbid obesity due to excess calories ([facility]/HCC) Start: 05-19-2024 Urine screening for protein Diabetes: Urine Protein Screening [facility] Start: 12-05-2023 Urine screening for protein Diabetes: Urine Protein Screening [facility] Start: 1961 Pneumococcal Vaccine : 65+ Years (1 of 2 - PCV) Pneumococcal Vaccine: 65+ Years (1 of 2 - PCV) [facility] Start: 1955 Screening for malign ant neoplasm of colon [facility] Immunizations Immunization Date Immunization Notes Care Provider Fa cility 08-14-2023 SARS-COV-2 (COVID-19 ) vaccine, mRNA, spike protein, LNP, PF, 50 mcg/0.5 mL Deep Kimbrough MD Work Phone: [facility] 09-19-2022 Moderna SARS-CoV-2 50mcg/0.5mL Booster Deep Kimbrough MD Work Phone: [facility] 01-02-2021 Pfizer Purple Cap SARS-CoV-2 Vaccination Deep Kimbrough MD Work Phone: [facility] 12-05-2020 Pfizer Purple Cap SARS-CoV-2 Vaccination Deep Kimbrough MD Work Phone: [facility] Payers Date Payer Category Payer Private Health Insurance [facility] [address] [id number] 2023 Unknown [facility] [id number] 2023-Present [address] [place] [address] [id number] 2023 Unknown [id number] 2021 Medicare [id number] 5 2021 Unknown [id number] 1959 Medicare [id number] 1959 Self-pay 1959 Unknown [id number] 1955 Unknown [id number] .2.647 1955 Unknown [id number] 2.16.840.1.242276.3.579 .2.593 1955 Unknown [id number] 2.16.840.1.117181.3.579 .2.593 1955 Unknown [id number] 2.16.840.1.155345.3.579 .2.1259 1955 Unknown [id number] 2.16.840.1.377374.3.579 .2.1259 1955 Unknown [id number] 2.16.840.1.066163.3.579 .2.1259 1955 Unknown [id number] 2.16.840.1.197410.3.579 .2.1259 1955 Unknown [id number] 2.16.840.1.932144.3.579 .2.1259 1955 Unknown [id number] 2.16.840.1.238606.3.579 .2.1259 1955 Unknown [id number] 2.16.840.1.937673.3.579 .2.1259 1955 Unknown [id number] 2.16.840.1.793561.3.579 .2.1259 Unknown [id number] [id number] .2.531 Social History Date Type Detail Facility Start: 05-29-2023 [facility] Start: 05-29-2023 Tobacco use and exposure Smoke less tobacco non-user [facility] Start: 08-25-2024 End: 12-16-2024 Alcoholic beverage intake Current drinker of alcohol (finding) [facility] Start: 08-25-2024 End: 11-01-2024 Alcoholic beverage intake [facility] Start: 06-03-2024 End: 11-01-2024 Tobacco use panel [facility] Start: 05-29-2023 Alcohol Comment Caffeine intak e: 1-2 cups per day [facility] Start: 1955 Sex assigned at Not on file [facility] Clinical Notes 01-02-2024 to 12-16-2024 Leeann Bridges MD - 12/16/2024 8:30 AM Liliana Kimbrough MD - 10/25/2024 9:00 AM Palak Erazo MD - 10/08/2024 9:30 AM Liliana Kimbrough MD - 09/30/2024 8:30 AM EST Note Date & Type Note Facility 12-16-2024 History of Present illness Narrative Skin Check Location: Patient requests a skin examination from the waist up Dermatologic history: history of Actinic Keratosis, history of Basal Cell Carcinoma Last visit: 1 year ago Rash Location: lower legs, lower back Duration: months Quality: itchy Modifying Factors: worsens with winter but has been worse this winter than usual, admits to swelling in legs but does wear compression stockings Associated symptoms: red, scaly Current treatments: moisturizer Established patient All pertinent medical history, medications, and allergies were reviewed. General Exam: alert, oriented to person, place, and time, normal affect, well appearing Unaccompanied A complete skin exam was offered, pt declined. Areas not examined despite medical recommendation: From the waist down Scalp, Examined , exam limited by hair Head, Face Examined Neck Examined Chest Examined Back Examined Abdomen Examined Right arm Examined Left arm Examined Hands Examined Digits,nails: Examined Lymphatics: Not examined 1. History of basal cell carcinoma Left cheek No evidence of recurrence at BCC scar. The patient was counseled that scars from excisional sites of nonmelanoma skin cancers should be monitored closely for recurrence. The patient was instructed to contact the office for any new, changing, or symptomatic moles. The patient was also instructed to contact the office for any new lesions that develop within or around the previous surgery scar. 2. Seborrheic keratosis Right Forehead Stuck on verrucous, zepeda-brown papules and plaques. Patient was counseled regarding these benign growths. Removal is normally not necessary, but they may be removed if they are symptomatic or for cosmetic reasons. 3. Lentigines (2) Face, Upper back and shoulders Scattered zepeda macules in sun-exposed areas. The patient was informed that lentigines are benign pigmented lesions that occur on sun-exposed and sun-damaged skin. No treatment is necessary. Recommended regular use of broad spectrum sunscreen SPF 30 or higher 4. Melanocytic nevus of trunk Torso - Posterior (Back) Scattered benign appearing, regular brown to light brown melanocytic papules and macules with similar morphology Counseled regarding these benign growths. Rarely, a nevus can develop into malignant melanoma, so any changing nevi should be promptly re-evaluated. 5. Stasis dermatitis of both legs Left Lower Leg - Posterior, Right Lower Leg - Posterior [place] scaly plaques in areas of edema. Not at treatment goal. The patient was informed that stasis dermatitis is a chronic rash on the lower legs due to swelling often caused by poor circulation. The patient was instructed to keep the legs elevated when seated, avoid standing for long periods of time, and to wear compression stockings. Start TAC 0.1% cream bid prn when flared, hold if clear. Notify clinic if failing to improve despite treatment. Related Medications triamcinolone (Kenalog) 0.1 % cream Apply to affected areas on legs and back, up to twice a day when flared, do not use one the face, groin, or underarms, 30 day supply Next Visit: 1 year documented in this encounter [facility] 10-25-2024 History of Present illness Narrative Images [...] same time. cholecalciferol (Vitamin D-3) 250 MCG (02371 UT) capsule Take 1 capsule by mouth [...] Kimbrough MD as PCP - ACO Reach Atson Nolasco DO as Referring Physician (Ophthalmology) Nghia [...] Yes Vision Screening: Yes, patient sees regular timber watchman/thoracic medicine specialist Hearing Screening: Not done Pain Assessment Pain Score: 3 Advance Care Planning Do you have a living will?: No Do you have a medical power of divorce attorney?: No Objective : Ht 5' 10 [...] through a living will, durable power of divorce attorney for healthcare, or other advanced directives. [...] November 05, 2024 documented in this encounter [facility] 10-18-2024 Note [place] [facility]iology - [facility] Subjective Jj Sky is a [...] 4 years ago S/p cardioversion June 2024. [id number] score is 2. He is on Eliquis for anticoagulation and he is on labe (more content not included)... [facility] 10-08-2024 History of Present illness Narrative Images [...] years for colonoscopy. documented in this encounter [facility] 09-30-2024 History of Present illness Narrative Patient [...] evaluation and treatment has included C-PAP trial. Gaby [facility] fax [phone] Review of Systems Constitutional: Negative for activity [...] same time. cholecalciferol (Vitamin D-3) 250 MCG (73412 UT) capsule Take 1 capsule by mouth [...] continued PAP therapy. The patient or their telecommunications sales representative and I have mutually agreed to [...] humidification. I certify that I had a [id number] encounter with this patient at todays office visit. Due to this medical condition the patient continues to require the DME. I certify that based on my findings The DME ordered is medically necessary for this patient. This has been discussed with the patient or their telecommunications sales representative and mutually agreed upon. 2. BiPAP (biphasic positive airway pressure) dependence Defines the PAP therapy 3. Morbid obesity due to excess calories (CMS/HCC) Chronic problem, comorbid condition. Again encouraged lifestyle changes 4. Pulmonary hypertension (CMS/HCC) Chronic problem , comorbid condition, that is being comanaged Cardiology and appears to be stable. 5. Benign essential hypertension (CMS/HCC) Chronic problem , comorbid condition, that is being comanaged Cardiology and appears to be stable. documented in this encounter [facility] 09-28-2024 Note [place] Electrophysiology Consult [place] Cardiology [facility] Reason for visit: Post [...] energy after he had undergone cardioversion in 2019. He is currently on anticoagulation with Eliquis [...] Tobacco Use: Low Risk (09/15/2024) Received from [facility] Patient History Smoking Tobacco Use: Never Smokeless Tobacco Use: Never Passive Exposure: Not on file Alcohol Use: Not on file Financial Resource Strain: Not on file Food Insecurity: Not on file Transportation Needs: Not on file Physical Activity: Not on file Stress: Not on file Social Connections: Not on file Intimate Partner Violence: Unknown (12/04/2023) [place] Safety & Environment Fear of Current or [...] and are negative (more content not included)... [facility] 09-08-2024 History of Present illness Narrative Images [...] Occlusive. Congenital cataract. documented in this encounter [facility] 08-25-2024 History of Present illness Narrative Images [...] 24 hours cholecalciferol (Vitamin D-3) 250 MCG (62093 UT) capsule 1 capsule, 2 times daily [...] complication, without long-term current use of insulin (CMS/HCC) Venous insufficiency Social History Tobacco Use Smoking [...] in 5 years. documented in this encounter [facility] 08-04-2024 Note Patient here for fol low up cardioversion on 06/30/[address] Meadows. Still denies all cardiac symptoms. Review of Systems Cardiovascular: Positive for leg swelling (minimal). Negative for syncope. Musculoskeletal: Positive for joint pain. All other systems reviewed and are negative. [facility] 08-04-2024 Note Cardiovascular Medic [facility] SUBJECTIVE Chief Complaint Patient presents with [...] QRS DURATION 06/30/2024 (more content not included)... [facility] 06-30-2024 Note DIRECT CARDIOVERSION PROCEDURE NOTE Date: [...] consider ablation. Norberto Meadows MD Cardiac Electrophysiology [facility] 06-30-2024 Note Patient: Jj bill Procedure Information Date/Time: 06/30/24 0830 Procedure: Cardioversion/defibrillation - PC APPROVED Location: [facility] SECUR[facility] POLICE OFFICER HOLDING ROOM / [facility] (Cath) Providers: Norberto Meadows MD Clinical information reviewed: Tobacco Allergies Meds Med Hx Surg Hx Fam Hx Physical Exam Airway Mallampati: II TM distance: >3 FB Cardiovascular Dental Pulmonary Abdominal Anesthesia Plan ASA 3 CSE Anesthetic plan and risks discussed with patient. Use of blood products discussed with patient who. Additional Equipment Requests [facility] 06-23-2024 Note [facility] II Continue GDMT- Diuretic therapy- currently stable without diuretic and management with hydrochlorothiazide Monitor daily weights, I&O, fluid restriction 1.5-2L/day, renal function and electrolytes- [facility] 06-23-2024 Note HTN well controlled at home per home b/p log. Renal function stable Continue all meds losartan/hydrochlorothiazide, labetolol and amlodipine [facility] 06-23-2024 Note Currently stable, no concerning symptoms. Reviewed red flag symptoms of chest pain, palpitations, syncope, shortness of breath or increased fatigue and to call office or 911. [facility] 06-23-2024 Note Remains stable with hydrochlorothiazide and compression daily [facility] 06-23-2024 Note [id number]= 3 Age, HTN, CHF Currently pt in A fib/flutter on ECG today, message sent to Dr Meadows for planning cardioversion to return to sinus rhythm. Pt states that he has not missed any doses of eliquis especially over the last month. Denied any bleeding tendencies. [facility] 06-23-2024 Note Will monitor with ro utine echocardiogram, no concerning symptoms, will monitor with echocardiogram [facility] 06-23-2024 Note Stable without concerning sympto ms [facility] 06-23-2024 Note Lipid abnormalities are stable and well controlled Continue crestor [facility] 06-23-2024 Note Pt is here for a six month follow up. Pt has HTN, HLD, and paroxysmal afib. Pt denies sob, chest pain, Palpations. Review of Systems Cardiovascular: Negative for syncope. Musculoskeletal: Positive for joint pain. All other systems reviewed and are negative. [facility] 06-23-2024 Note [facility] CARDIOLOGY PROGR ESS NOTE [...] controlled. Will send him for cardioversion at [facility]. Currently denied chest pain, SOB, Orthopnea, or [...] hyperlipidemia Lipid a (more content not included)... [facility] 06-03-2024 History of Present illness Narrative Images [...] change in test platforms from the [employer] to the Abdirashid melina c503 may have shifted HbA1c results compared to historical results. Based on laboratory validation testing conducted at [facility], the Abdirashid platform relative to the Goodwin [...] same time. cholecalciferol (Vitamin D-3) 250 MCG (03385 UT) capsule Take 1 capsule by mouth [...] mellitus (CMS/HCC) As above 8. Mixed dyslipidemia (CMS/[facility]) Patient was unsure if he needed this. I asked him to check at home and call us back which he did. Prescription was filled by Cardiology. - Lipid panel; Future - Lipid panel 9. Morbid obesity due to excess calories (CMS/[facility]) Discussed the importance of obtaining elevated heart rate for at least 30 minutes to count it as exercise. documented in this encounter [facility] 01-02-2024 Note Cardiology Clinic No te Subjective [...] sleep apnea syndrome PAF (paroxysmal atrial fibrillation) ([facility]/HCC) Persistent atrial fibrillation ([facility]/HCC) Peripheral venous insufficiency Pulmonary hypertension (CMS/HCC) Right [...] is moderately enlarge (more content not included)... [facility] 01-02-2024 Note Patient here for 6 m o follow up hyperlipidemia, hypertension, and PAF. Had echo in Jul 2023. Had routine labs last week. Says his BP at home when he checks it runs between 125-135/70's. Denies chest pain, SOB, palpitations, lightheadedness/syncope, and bleeding on Eliquis. [facility] Evaluation note Diagnosis Family history of colon cancer- Primary Family history of malignant neoplasm of gastrointestinal tract Encounter for screening for malignant neoplasm of colon documented [facility]* Diagnosis Diet-controlled diabetes mellitus (CMS/HCC)- Primary Age-related nuclear cataract of both eyes Dry eyes Unspecified tear film insufficiency Amblyopia of right eye Unspecified amblyopia documented in this encounter [facility]* Diagnosis Benign essential hypertension (CMS/HCC) [...] excess calories (CMS/HCC) documented in this encounter [facility]* Diagnosis Family history of colon cancer- Primary Family history of malignant neoplasm of gastrointestinal tract documented in this encounter [facility]* Diagnosis Obstructive sleep apnea- Primary Obstructive sleep apnea (adult) (pediatric) BiPAP (biphasic positive airway pressure) dependence Dependence on other enabling machine Morbid obesity due to excess calories (CMS/HCC) Pulmonary hypertension (CMS/HCC) Other chronic pulmonary heart diseases Benign essential hypertension (CMS/HCC) Essential hypertension, benign documented in this encounter [facility] note* Diagnosis Encounter for Medicare annual [...] dyslipidemia (CMS/HCC) documented in [facility] encounter [facility]* Diagnosis Seborrheic keratosis- Primary History of basal cell carcinoma Personal history of other malignant neoplasm of skin Lentigines Melanocytic nevus of trunk Benign neoplasm of skin of trunk, except scrotum Stasis dermatitis of both legs documented in this encounter [facility] Summary [...] section and content) DATE CREATED AUTHOR 12/16/2019 [facility] DATE CREATED AUTHOR AUTHOR'S ORGANIZ ATION 04/05/2021 [facility] DATE CREATED AUTHOR AUTHOR'S ORGANIZ ATION 06/06/2021 [facility] DATE CREATED AUTHOR AUTHOR'S ORGANIZ ATION 02/13/2022 [facility] dical Specialist DATE CREATED AUTHOR AUTHOR'S ORGANIZ ATION 03/09/2022 [facility] DATE CREATED AUTHOR AUTHOR'S ORGANIZ ATION 10/24/2024 [facility] DATE CREATED AUTHOR AUTHOR'S ORGANIZ ATION 10/30/2024 [facility] DATE CREATED AUTHOR AUTHOR'S ORGANIZ ATION 11/14/2024 [facility] DATE CREATED AUTHOR AUTHOR'S ORGANIZ ATION 12/18/2024 [facility] dical Specialists EPIC Reason for Visit (unrecogniz ed section and content) Reason Comments Schedule colonoscopy Brother had colon c ancer Specialty Diagnoses / Procedures Referred By Contjudith t Referred To Contact General Surgery Diagnoses Encounter for screening for malignant neoplasm of colon Procedures SD OFFICE/OUTPATIENT NEW HIGH MDM 60 MINUTES Deep Kimbrough MD [address] [place] [address] Phone: tel: fax:+ Willian Manzano DO [address] [address] Phone: tel: fax: Referral ID Status Reason Start Date Expiration Date V isits Requested Visits Authorized [id number] Closed Specialty Services Required 07/20/2024 01/16/2025 1 1 Reason Comments Diabetic Eye Exam Reason Comments 1st po colonoscopy Path pending Reason Comments Cpap Reason Comments Annual Exam Reason Comments Skin Check Rash Care Teams (unrecognized sec tion and content) Heel Seat Fitter Machine Relationship Specialty Start Date End Date Deep Kimbrough MD [address] [place] [address] (Fax) PCP - ACO Reach 03/06/23 Deep Kimbrough MD [address] [place] [address] (Fax) PCP - General Family Medicine 08/05/24 Aston Nolasco DO [address] [place] [address] Referring Physician Ophthalmology 11/20/23 Nghia Ritter MD [address] [place] [address] Referring Physician Cardiology 11/20/23 Heel Seat Fitter Machine Relationship Specialty Start Date End Date Deep Kimbrough MD [address] [address] (Fax) PCP - ACO Reach 03/06/23 Deep Kimbrough MD [address] [address] (Fax) PCP - General Family Medicine 08/05/24 Aston Nolasco DO [address] [place] [address] Referring Physician Ophthalmology 11/20/23 Nghia Ritter MD [address] [place] [address] Referring Physician Cardiology 11/20/23 Heel Seat Fitter Machine Relationship Specialty Start Date End Date Deep Kimbrough MD [address] [place] [address] (Fax) PCP - ACO Reach 03/06/23 Deep Kimbrough MD [address] [place] [address] (Fax) PCP - General Family Medicine 08/05/24 Aston Nolasco DO [address] [place] [address] Referring Physician Ophthalmology 11/20/23 Nghia Ritter MD [address] [place] [address] Referring Physician Cardiology 11/20/23 Heel Seat Fitter Machine Relationship Specialty Start Date End Date Deep Kimbrough MD [address] [place] [address] (Fax) PCP - ACO Reach 03/06/23 Deep Kimbrough MD [address] [place] [address] PCP - General Family Medicine 04/16/23 Aston Nolasco DO [address] [place] [address] Referring Physician Ophthalmology 11/20/23 Nghia Ritter MD [address] [place] [address] Referring Physician Cardiology 11/20/23 Heel Seat Fitter Machine Relationship Specialty Start Date End Date Deep Kimbrough MD [address] [place] [address] (Fax) PCP - ACO Reach 03/06/23 Deep Kimbrough MD [address] [place] [phone] PCP - General Family Medicine 04/16/23 Aston Nolasco DO [address] [place] [address] Referring Physician Ophthalmology 11/20/23 Nghia Ritter MD [address] [place] [address] Referring Physician Cardiology 11/20/23 Heel Seat Fitter Machine Relationship Specialty Start Date End Date Deep Kimbrough MD [address] [place] [address] PCP - ACO Reach 03/06/23 Deep Kimbrough MD [address] [place] [phone] PCP - General Family Medicine 04/16/23 Aston Nolasco DO [address] [place] [address] Referring Physician Ophthalmology 11/20/23 Nghia Ritter MD [address] [place] [address] Referring Physician Cardiology 11/20/23 Heel Seat Fitter Machine Relationship Specialty Start Date End Date Deep Kimbrough MD [address] [place] [address] (Fax) PCP - ACO Reach 03/06/23 Deep Kimbrough MD [address] [address] (Fax) PCP - General Family Medicine 08/05/24 Aston Nolasco DO [address] [place] [address] Referring Physician Ophthalmology 11/20/23 Nghia Ritter MD [address] [place] [address] Referring Physician Cardiology 11/20/23 Heel Seat Fitter Machine Relationship Specialty Start Date End Date Deep Kimbrough MD [address] [address] (Fax) PCP - ACO Reach 03/06/23 Deep Kimbrough MD [address] [place] [address] (Fax) PCP - General Family Medicine 08/05/24 Aston Nolasco DO [address] [place] [address] Referring Physician Ophthalmology 11/20/23 Nghia Ritter MD [address] [place] [address] Referring Physician Cardiology 11/20/23 Heel Seat Fitter Machine Relationship Specialty Start Date End Date Deep Kimbrough MD [address] [place] [address] (Fax) PCP - ACO Reach 03/06/23 Deep Kimbrough MD [address] [place] [address] (Fax) PCP - General Family Medicine 08/05/24 Aston Nolasco DO [address] [place] [address] Referring Physician Ophthalmology 11/20/23 Nghia Ritter MD [address] [place] [address] Referring Physician Cardiology 11/20/23 Heel Seat Fitter Machine Relationship Specialty Start Date End Date Deep Kimbrough MD [address] [place] [address] (Fax) PCP - ACO Reach 03/06/23 Deep Kimbrough MD [address] [place] [address] (Fax) PCP - General Family Medicine 08/05/24 Aston Nolasco DO [address] [place] [address] Referring Physician Ophthalmology 11/20/23 Nghia Ritter MD [address] [place] [address] Referring Physician Cardiology 11/20/23 Heel Seat Fitter Machine Relationship Specialty Start Date End Date Deep Kimbrough MD [address] [place] [address] (Fax) PCP - ACO Reach 03/06/23 Deep Kimbrough MD [address] [place] [address] (Fax) PCP - General Family Medicine 08/05/24 Aston Nolasco DO [address] [place] [address] Referring Physician Ophthalmology 11/20/23 Nghia Ritter MD [address] [place] [address] Referring Physician Cardiology 11/20/23 Heel Seat Fitter Machine Relationship Specialty Start Date End Date Deep Kimbrough MD [address] [place] [address] (Fax) PCP - ACO Reach 03/06/23 Deep Kimbrough MD [address] [place] [address] (Fax) PCP - General Family Medicine 08/05/24 Aston Nolasco DO [address] [place] [address] Referring Physician Ophthalmology 11/20/23 Nghia Ritter MD [address] [place] [address] Referring Physician Cardiology 11/20/23 Heel Seat Fitter Machine Relationship Specialty Start Date End Date Deep Kimbrough MD [address] [place] [address] (Fax) PCP - ACO Reach 03/06/23 Deep Kimbrough MD [address] [place] [address] (Fax) PCP - General Family Medicine 08/05/24 Aston Nolasco DO [address] [place] [address] Referring Physician Ophthalmology 11/20/23 Nghia Ritter MD [address] [place] [address] Referring Physician Cardiology 11/20/23 Heel Seat Fitter Machine Relationship Specialty Start Date End Date Deep Kimbrough MD [address] [address] (Fax) PCP - ACO Reach 03/06/23 Deep Kimbrough MD [address] [address] (Fax) PCP - General Family Medicine 08/05/24 Aston Nolasco DO [address] [place] [address] Referring Physician Ophthalmology 11/20/23 Nghia Ritter MD [address] [place] [address] Referring Physician Cardiology 11/20/23 FOR RECORDS PERTAINING [...] BE BASED ON THE PRIMARY CLINICAL RECORDS. [employer] [facility]. provides no warranty or guarantee of the accuracy or completeness of information in this document.
== END 2024-12-22 20:43 | disposition home or self-care (01) ==
LOC: SLEEP 20:42
PROVIDERS: PCP Family Medicine; Visit Provider Family Medicine
DX: G47.33 Obstructive sleep apnea (adult) (pediatric) (principal)
CPT/HCPCS: 95811

== ENCOUNTER 2025-09-28 08:46 | Outpatient (OUT) | payer MEDICARE, OTHER, SELFPAY ==
--- OUTSIDE RECORDS SUMMARY | 2025-09-28 08:48 | XMS_ITS | Clinical Summary ---
Author Organization [facility] Address [address] [place] [address] Phone Care Team Providers Care Engagement Liaison Name Role Phone Deep Salazar MD Primary Care Provider Social History Tobacco UseTypesPacks/DayYears UsedDateSmoking Tobacco: Never AssessedSex and Gender InformationValueDate RecordedSex Assigned at BirthNot on fileLegal Sex Male09/07/2022 8:29 PM ESTGender IdentityNot on fileSexual OrientationNot on file Plan of Treatment Not on file Care Teams Team MemberRelationshipSpecialtyStart DateEnd Date Deep Salazar MD [address] [place] [id number] [facility]01/15/11
--- OUTSIDE RECORDS SUMMARY | 2025-09-28 08:48 | XMS_ITS | Clinical Summary ---
Author Organization [facility] Address [address] [place] [address] Care Team Providers Care Hose Maker Name Role Phone Deep Salazar MD Primary Care Provider [phone] Allergies No known active allergies Medications MedicationSigDispense QuantityRefillsLast FilledStart DateEnd DateStatus magnesium oxide,aspartate,citr (Triple Magnesium Complex) 400 mg magnesium capsule Take 1 capsule by mouth.Active cholecalciferol, vitamin D3, 250 mcg (10,000 unit) capsule Take 1 capsule by mouth twice a day.Active rivaroxaban (Xarelto) 20 mg tablet Indications:Paroxysmal atrial fibrillation (CMS/HCC)Take 1 tablet (20 mg) by mouth daily with evening meal. Take with food. 90 tablet 503/ctive losartan-hydrochlorothiazide (Hyzaar) 100-25 mg tablet Indications:Benign essential hypertensionTake 1 tablet by mouth in the morning. 90 tablet /6Active amLODIPine (Norvasc) 10 mg tablet Indications:Paroxysmal atrial fibrillation (CMS/HCC)Take 1 tablet (10 mg) by mouth in the morning. 90 tablet 5Active rosuvastatin (Crestor) 10 mg tablet Indications:Hyperlipidemia, unspecified hyperlipidemia typeTake 1 tablet (10 mg) by mouth at bedtime. 90 tablet tive labetalol (Normodyne) 200 mg tablet Indications:Essential hypertensionTake 1 tablet (200 mg) by mouth three times daily.5Active Active Problems ProblemNoted DateDiagnosed DateEssential wxrgidmfxwyo72/11/2025Family history of colon gzdrqx9308/25/2024MI 37.0-37.9, adult/ge-related nuclear cataract of both eyesmblyopia of right eye iet-controlled diabetes kwntwedr84ry eyeshronic kidney disease, stage 2 (mild)05/22/2023 07/15/2023Hypertensive oeocoavvibz441092Hdvsewsyaxlgqpby29/10/2023 07/15/2023Mild concentric left ventricular hypertrophy (LVH) Assessment & Plan (06/23/2024 10:35 AM EDT): Stable without concerning symptoms Mixed psxvowcgiabd93Other seborrheic msvwdjleh04/10/2023 07/15/2023History of basal cell carcinoma (BCC) of skin01/06/2023iPAP (biphasic positive airway pressure) irytbdoemd96/29/2020Edema of lower bupngnsoy52/04/2020 PAF (paroxysmal atrial fibrillation)02/14/2020 Assessment & Plan (06/23/2024 10:51 AM EDT): OVU2QG5-JBMy= 3 Age, HTN, CHF Currently pt in A fib/flutter on ECG today, message sent to Dr Meadows for planning cardioversion toreturn to sinus rhythm. Pt states that he has not missed any doses of eliquis especially over the last month. Denied any bleeding tendencies. Type 2 diabetes mellitus without ayqxslpaaxxi77/24/2020Mixed hyperlipidemia 12/28/2019 Assessment & Plan (06/23/2024 10:36 AM EDT): Lipid abnormalities are stable and well controlled Continue crestor Pulmonary zoupxkcnertw47/09/2019Persistent atrial mscxxftmpesl04/25/2019Morbid snsttvd1510/03/2016Vitamin D hnhvmyqiiq83/16/2015Benign hypertensive cardiomyopathy with heart iahtben4409/26/2015 Assessment & Plan (06/23/2024 10:48 AM EDT): HTN well controlled at home per home b/p log. Renal function stable Continue all meds losartan/hydrochlorothiazide, labetolol and amlodipine Cwctvrnadrtw64/15/2015Chronic diastolic heart xxmrjka5809/26/2015 Assessment & Plan (06/23/2024 10:49 AM EDT): [facility] Continue GDMT- Diuretic therapy- currently stable without diuretic and management with hydrochlorothiazide Monitor daily weights, I&O, fluid restriction 1.5-2L/day, renal function and electrolytes- Aortic valve tqtztezv12/15/2015 Assessment & Plan (06/23/2024 10:47 AM EDT): Currently stable, no concerning symptoms. Reviewed red flag symptoms of chest pain, palpitations, syncope, shortness of breath or increased fatigue and to call office or 911. Mitral valve jouhyqnf86/15/2015 Assessment & Plan (06/23/2024 10:36 AM EDT): Will monitor with routine echocardiogram, no concerning symptoms, will monitor with echocardiogram Obstructive sleep apnea lpqkokpb16/15/2015Right bundle branch block09/26/2015 Peripheral venous sfkpdubhultfh92/16/2015 Assessment & Plan (06/23/2024 10:39 AM EDT): Remains stable with hydrochlorothiazide and compression daily Encounters DateTypeDepartmentCare DtsdBhlzewpjwhy86/02/2025 9:30 AM ESTOffice Visit [address] [address] Norberto Meadows MD Paroxysmal atrial fibrillation (CMS/HCC) (Primary Dx); Abnormal EKG1Telephone [facility] [address] [place] [address] LetyChloe MA 07/22/2025Orders Only [facility] [address] [place] [address] ProviderAshley MD 07/21/2025 9:20 AM EDTOffice Visit [address] [place] [address] Lizett Ritter CNP Paroxysmal atrial fibrillation (CMS/HCC) (Primary Dx); Essential hypertension; PVC (premature ventricular contraction); Mixed dyslipidemia; Mild concentric left ventricular hypertrophy (LVH); Mitral valve disorder; Peripheral venous insufficiency; Ascending aorta dilatation; Chronic diastolic heart failure (CMS/HCC)from Last 3 Months Family History Medical HistoryRelationNameCommentsAtrial fibrillationBrotherCoronary artery diseaseFatherpacemakerMotherAtrial fibrillationSisterRelationNameStatusComments BrotherDeceasedFatherDeceasedMotherDeceasedSisterAlive Social History Tobacco UseTypesPacks/DayYears UsedDateSmoking Tobacco: NeverSmokeless Tobacco: Never Tobacco Cessation:Counseling Given: Not Answered Alcohol UseStandard Drinks/WeekCommentsYes0 (1 standard drink = 0.6 oz pure alcohol)moderate 5 beers per weekUT Safety & EnvironmentAnswerDate RecordedFear of Current or Ex-PartnerNot on file12/04/2023Emotionally AbusedNot on file 12/04/2023hysically AbusedNot on file12/04/2023Sexually AbusedNot on file 12/04/2023hysically or Sexually AbusedNot on file12/04/2023Sex and Gender InformationValueDate RecordedSex Assigned at WqdzlDtrm12/22/2024 9:55 AM EDT Legal GbqEgrn6404/11/2022 12:16 AM EDTGender IguftzhzXajr07/22/2024 9:55 AM EDT Sexual OrientationHeterosexual or Dfcgilum01/22/2024 9:55 AM EDT Last Filed Vital Signs Vital SignReadingTime TakenCommentsBlood Vwpqhuze321/7209/13/2025 9:44 AM EST Elnra184809/13/2025 9:44 AM ESTTemperature--Respiratory Dbkh3274 9:15 AM EDTOxygen Ynbtuesoge09%09/13/2025 9:44 AM ESTInhaled Oxygen Concentration-- Ofqmaw243 kg (258 lb)09/13/2025 9:44 AM LZCDktmvf687.8 cm (5' 10 )09/13/2025 9:44 AM ESTBody Mass Index37.02111/14/2024 9:44 AM EST Plan of Treatment Health MaintenanceDue DateLast DoneCommentsCT Fguzkzwqqtdv1955FIT-DNA 1955FIT1955FOBT1955Medicare Annual Wellness (AWV)1955 Klecwjjexussh1955Diabetes: Retinopathy Yyfgykjjj95/25/1965Depression Khxjxhwvj88/25/1967Pneumococcal Vaccine: 50+ Years (1 of 2 - PCV)1974Adult Awcyhbs4502/04/1977Zoster Vaccines (1 of 2)2005Fall Risk Stbqobypv35/25/2020 Iqcthsgokmz80Colorectal Cancer Vuhffdfuu70/28/2024OVID-19 Vaccine ( season), 09/19/2022, 09/19/2022, Additional history existsInfluenza Vaccine (#1)06/13/2025Diabetes: Hemoglobin A1C5005/09/2025, 11/10/2024, 05/10/2024, Additional history exists Diabetes: Urine Protein Srejhxfzb72HIB VaccinesAged OutNo longer eligible based on patient's age to complete this topicHPV VaccinesAged OutNo longer eligible based on patient's age to complete this topicIPV Vaccines Aged OutNo longer eligible based on patient's age to complete this topic Meningococcal B VaccineAged OutNo longer eligible based on patient's age to complete this topicMeningococcal VaccineAged OutNo longer eligible based on patient's age to complete this topicRotavirus VaccinesAged OutNo longer eligible based on patient's age to complete this topic Procedures Procedure NamePriorityDate/TimeAssociated DiagnosisCommentsECG 12-LEADRoutine 07/21/2025 11:51 AM EDTfrom Last 3 Months Results * ECG 12 lead (07/21/2025 11:51 AM EDT) Narrative Authorizing ProviderResult TypeResult StatusHistorical Provider MDECG ORDERABLES Final Result from Last 3 Months Insurance Advance Directives * Full Code (Latest Code Status on File) Date ActivatedDate InactivatedComments06/30/2024 8:49 AM06/30/2024 11:26 AM Care Teams Team MemberRelationshipSpecialtyStart DateEnd Date Deep Salazar MD [address] [place] [address] PCP - [facility]01/06/23
--- OUTSIDE RECORDS SUMMARY | 2025-09-28 08:48 | XMS_ITS | Clinical Summary ---
Author Organization [facility] Address [address] [place] [address] Care Team Providers Care Cigar Maker Name Role Phone Deep Salazar MD Unavailable [phone] Maxi Nolasco DO Unavailable [phone] Lizett Ritter MD Unavailable [phone] Deep Salazar MD Primary Care Provider [phone] Allergies No known active allergies Medications MedicationSigDispense QuantityRefillsLast FilledStart DateEnd DateStatus losartan-hydroCHLOROthiazide (Hyzaar) 100-25 MG tablet Take 1 tablet by mouth in the morning.04/03/2023ctive labetalol (Normodyne) 200 MG tablet Take 200 mg by mouth in the morning and 200 mg in the evening and 200 mg before bedtime.Active amLODIPine (Norvasc) 10 MG tablet Take 10 mg by mouth 1 (one) time each day at the same time.Active cholecalciferol (Vitamin D-3) 250 MCG (10789 UT) capsule Take 1 capsule by mouth in the morning and 1 capsule before bedtime.Active Multiple Vitamin (multivitamin) capsule Take 1 capsule by mouth 1 (one) time each day at the same time.Active Magnesium 400 MG capsule Take 1 capsule by mouth 1 (one) time each day at the same time.Active rosuvastatin (Crestor) 10 MG tablet Indications:Mixed dyslipidemiaTake 1 tablet (10 mg) by mouth in the morning. 90 tablet ctive Elastic Bandages & Supports ([employer] Firm Compression Socks) misc Indications:Venous (peripheral) insufficiencyKnee high, 20-30 mmHg Put on in AM and take off in PM daily. 4 each ctive triamcinolone (Kenalog) 0.1 % cream Indications:Stasis dermatitis of both legsApply to affected areas on legs and back, up to twice a day when flared, do not use one the face, groin, or underarms, 30 day supply 454 g 1105Active rivaroxaban (Xarelto) 20 MG tablet Take 20 mg by mouth in the evening. Take with meals Take with food.Active Berberine Chloride 500 MG capsule Indications:Diet-controlled diabetes mellitus (HCC)Take 500 mg by mouth in the morning and 500 mg in the evening and 500 mg before bedtime.5Active Active Problems ProblemNoted DateDiagnosed DateFamily history of colon surytq5508/25/2024iet- controlled diabetes nqnmbgia72/06/2023ge-related nuclear cataract of both eyes 08/18/2023ry eyes08/18/2023mblyopia of right eye08/18/2023enign essential byelevgbsgte06/10/2023iPAP (biphasic positive airway pressure) dependence 05/22/2023hronic atrial nukoxnbrsudv77/10/2023hronic diastolic heart failure 05/22/2023hronic kidney disease, stage 2 (mild)05/22/2023Hypertensive obleslywbvz45/10/9386Pzoagudbhbvevpxj75/10/2023Mild concentric left ventricular hypertrophy (LVH)05/22/2023ortic valve egrgbpni53/10/2023Mitral valve disorder 05/22/2023Mixed cylyqnkaldia53/10/2023Morbid obesity due to excess calories 05/22/2023Obstructive sleep apnea05/22/2023Other seborrheic ygbhnpuem98/10/2023 Pulmonary rlmqpvawowfz54/10/2023Right bundle branch block05/22/2023Type 2 diabetes mellitus with stage 2 chronic kidney disease, without long-term current use of zcjxxyf1405/22/2023Venous (peripheral) /10/2023Vitamin D /10/2023History of basal cell carcinoma (BCC) of skin01/06/2023 Rqojdevggxkw50/15/2015Benign hypertensive cardiomyopathy with heart failure 09/26/2015 Resolved Problems ProblemNoted DateDiagnosed DateResolved DateEncounter for screening for malignant neoplasm of colonMI 37.0-37.9, adult10/23/2023 09/22/2024Mixed alyqjywxzyqwct52 Immunizations ImmunizationAdministration DatesNext DueModerna SARS-CoV-2 50mcg/0.5mL Booster 09/19/2022fizer Purple Cap SARS-CoV-2 Sbeslimaucf26/23/2021,12/05/2020 SARS-COV-2 (COVID-19) vaccine, mRNA, spike protein, LNP, PF, 50 mcg/0.5 mL 08/14/2023 Family History Medical HistoryRelationNameCommentsColon cancerBrotherCancerFatherDiabetesFather Heart diseaseFatherCancerMotherHeart diseaseMotherSclerodermaSisterRelationName StatusCommentsBrother5 brothersFatherDeceasedMotherSister3 sistersSonAlive3 sons Social History Tobacco UseTypesPacks/DayYears UsedDateSmoking Tobacco: NeverSmokeless Tobacco: Never Tobacco Cessation:Counseling Given: Yes Alcohol UseStandard Drinks/WeekCommentsYes2 (1 standard drink = 0.6 oz pure alcohol)Caffeine intake: 1-2 cups per dayPHQ-2AnswerDate RecordedPatient Health Questionnaire-2 Gumxw356Sex and Gender InformationValueDate RecordedSex Assigned at BirthNot on fileLegal GrlNrsj6512/25/2022 6:39 PM EDTGender Identity Not on fileSexual OrientationNot on file Last Filed Vital Signs Vital SignReadingTime TakenCommentsBlood Ffipauor384/7608 8:44 AM EDT Pynpn995605/19/2025 8:44 AM EDTTemperature--Respiratory Rate--Oxygen Scvsdshydt07% 05/19/2025 8:44 AM EDTInhaled Oxygen Concentration--Vsvmrv853 kg (260 lb 8 oz) 05/19/2025 8:44 AM DCFEuaafy635.8 cm (5' 10 )05/19/2025 8:44 AM EDTBody Mass Index37.3808 8:44 AM EDT Plan of Treatment DateTypeDepartmentCare Team (Latest Contact Info)Niqbikknehk11/15/2026 9:00 AM ESTOffice Visit [facility] [address] [place] [address] Deep Salazar MD [address] [place] [address] (Fax) 11/17/2025 9:00 AM ESTOffice Visit [facility] [address] [place] [address] Deep Salazar MD [address] [place] [address] (Fax) 12/21/2025 8:30 AM EDTOffice Visit [facility] [address] [place] [address] Leeann Hercules MD [address] [place] [address] Health MaintenanceDue DateLast DoneCommentsCT Ahppovgjzglw1955FIT-DNA 1955FIT1955FOBT1955 5112Bblyehrrnichc1955OVID-19 Vaccine ( season), 09/19/2022, 09/19/2022, Additional history existsPneumococcal Vaccine: 65+ Years (1 of 2 - PCV)10/25/2025Postponed from 1974 (Patient Refused)Diabetes: Hemoglobin A1C, 11/10/2024, 05/10/2024, Additional history existsDiabetes: Urine Protein Ubfyxqxib51, 12/05/2022, 12/12/2021, Additional history exists Diabetes: Retinopathy Dsngliixg78, 09/08/2024, 09/08/2024, Additional history yzwleaOlpghbmxvee33, 06/09/2014Colorectal Cancer Sljefddgp96/18/2034Influenza VaccineDiscontinued Procedures Procedure NamePriorityDate/TimeAssociated DiagnosisCommentsMICROALBUMIN / CREATININE URINE YUHTSWkuevmd74/28/2025 8:20 AM EDT Microalbuminuria Type 2 diabetes mellitus with stage 2 chronic kidney disease, without long-term current use of insulin (HCC) Benign essential hypertension HEMOGLOBIN C2IBalyeqf25/28/2025 8:20 AM EDT Type 2 diabetes mellitus with stage 2 chronic kidney disease, without long-term current use of insulin (HCC) HM SZUSOOOLIFGFxwbuyf89/18/2024 2:31 PM ESTCOLOR FUNDUS PHOTOGRAPHY - OU - BOTH HERCFbydecu98/13/2022 12:00 PM EDT from Last 3 Months or Most Recently Relevant to Health Maintenance Results * Microalbumin / creatinine urine ratio (05/09/2025 8:20 AM EDT)ComponentValue Ref RangeTest MethodAnalysis TimePerformed AtPathologist SignatureCREATININE, RANDOM GMWSQ6905 - 320 mg/dLQUESTALBUMIN, URINE0.4See Note: mg/dLQUESTComment: Reference Range: Reference Range Not established ALBUMIN/CREATININE RATIO, RANDOM URINE5<30 mg/g creatQUESTComment: The ADA defines abnormalities in albumin excretion as follows: Albuminuria Category ?Result (mg/g creatinine) Normal to Mildly increased <30 Moderately increased ? 30-299 Severely increased > OR = 300 The ADA recommends that at least two of three specimens collected within a 3-6 month period be abnormal before considering a patient to be within a diagnostic category. Specimen (Source)Anatomical Location / LateralityCollection Method / Volume Collection TimeReceived TimeUrineUrine specimen obtained by clean catch procedure / Zofpmfg4705/09/2025 8:20 AM EDT05/09/2025 3:57 PM EDT Narrative Resulting Agency Comment Performing Organization Information ?Site ID: QPT ?Name: [employer] [facility] ?Address: [address] [place] [address], [address] [place] [phone] ?Director: Trever Guillen MD Authorizing ProviderResult TypeResult StatusDeep Salazar MDHERINGTON [facility] URINE ORDERABLESFinal ResultPerforming OrganizationAddressCity/State/ZIP CodePhone Number [facility] * (ABNORMAL) Hemoglobin A1c (05/09/2025 8:20 AM EDT)ComponentValueRef RangeTest MethodAnalysis TimePerformed AtPathologist SignatureHemoglobin A1C6.2(H)<5.7 % QUESTComment: For someone without known diabetes, a hemoglobin A1c value between 5.7% and 6.4% is consistent with prediabetes and should be confirmed with a follow-up test. For someone with known diabetes, a value <7% indicates that their diabetes is well controlled. A1c targets should be individualized based on duration of diabetes, age, comorbid conditions, and other considerations. This assay result is consistent with an increased risk of diabetes. Currently, no consensus exists regarding use of hemoglobin A1c for diagnosis of diabetes for children. Specimen (Source)Anatomical Location / LateralityCollection Method / Volume Collection TimeReceived TimeBloodVenous blood specimen / Jgrhgbf9705/09/2025 8:20 AM EDT05/09/2025 3:57 PM EDT Narrative Resulting Agency Comment Performing Organization Information ?Site ID: QPT ?Name: [employer] [facility] ?Address: [address] [place] [address], [address] [place] [phone] ?Director: Trever Guillen MD Authorizing ProviderResult TypeResult StatusDeep Salazar MDHER[facility] BLOOD ORDERABLESFinal ResultPerforming OrganizationAddressCity/State/ZIP CodePhone Number [facility] * Hm Colonoscopy (09/29/2024 2:31 PM EST)Anatomical RegionLateralityModality Other Narrative Authorizing ProviderResult TypeResult Batsheva Erazo MDHEALTH MAINTENANCEFinal Result * Color Fundus Photography - OU - Both Eyes (01/23/2022 12:00 PM EDT)Anatomical RegionLateralityModalityHeadFundus PhotographySpecimen (Source)Anatomical Location / LateralityCollection Method / VolumeCollection TimeReceived Time 01/23/2022 12:00 PM EDT Narrative 01/23/2022 12:00 PM EDT PERFORMED AT [facility] LOCATION:[id number] [facility] Procedure Note CONVERSION, GENERIC - 02/26/2023 PERFORMED AT [facility] LOCATION:[id number] [facility] Authorizing ProviderResult TypeResult StatusDeep Salazar MDOPHHUNG PHOTOGRAPHY Final Result from Last 3 Months or Most Recently Relevant to Health Maintenance Insurance Care Teams Team MemberRelationshipSpecialtyStart DateEnd Deep Salazar MD [address] [place] [address] PCP - [facility]03/06/23 Deep Salazar MD [address] [place] [address] (Fax) PCP - GeneralFamily Dgrewpqg94/24/24 Maxi Nolasco DO [address] [place] [address] [address] [place] [address] Referring PhysicianOphthalmology11/20/23 Lizett Ritter MD [address] [place] [address] Referring PhysicianCardiology11/20/23
--- NOTE | 2025-09-28 09:15 | NM_ITS ---
Patient Name: EDIE POTTER MR#: [id number] : 1955 Exam Date: 09/28/2025 Ordering Doctor: KASSANDRA JONES RADIOLOGY REPORT PROCEDURE: NM PIERRE PERF SPECT REST STR COMPARISON: None. INDICATIONS: PAROXYSMAL ATRIAL FIBRILLATION, ABNORMAL EKG TECHNIQUE: Exam Description: Stress/Rest two day protocol gated SPECT Rest Imagin.0 mCi Tc-99m Cardiolite IV on 09/29/2025 Stress Imaging 24.9 mCi Tc-99m Cardiolite IV on 09/28/2025 Exercise Protocol: 0.4 mg Lexiscan given IV Heart Rate (bpm): Rest: 66 Max: 134 PMHR: 89 Blood Pressure: Rest: 158/76 Max: 184/82 Symptoms: Rest and peak stress ECG findings were pending, and the exercise portion of the study was pending per attending physician [facility]. For more details, please see separate cardiac stress test report. FINDINGS: QUALITY OF STUDY: Good PERFUSION DEFECT: LOCATION: N/A SIZE: N/A SEVERITY: N/A TYPE: N/A WALL MOTION: Normal wall motion LV SIZE: 189 mL. TID / TCD: 1.0 LVEF: Calculated EF 57%. SUMMARY: Myocardial perfusion imaging study is normal CONCLUSION: 1. Myocardial perfusion is normal with soft tissue attenuation 2. Global left ventricular systolic function is normal 3. No significant transient ischemic dilatation Dictated by: Zoe Nolasco M.D. on 09/29/2025 at 14:59 Approved by: Zoe Nolasco M.D. on 09/29/2025 at 15:02
--- NOTE | 2025-09-28 10:07 | PC.NURSE ---
Patient tolerated Cardiolyte treadmill stress test without problems. Denied symptoms throughout test. Symptom free when leaving the stress lab.
--- NOTE | 2025-09-28 10:33 | PM.STRESS ---
Stress Test Stress Test Requesting physician: Norberto Meadows Procedure: Cardiolyte nuclear stress test General Information: Reason for Stress Test: Pre-operative assessment Cardiac History and Risk Factors: hypertension, hyperlipidemia, atrial fibrillation Resting 12 - Lead Electrocardiogram: Sinus rhythm 65 bpm with occasional PVC, possible anterior NE, old Stress Test: Protocol: Cachorro Exercise Capacity: Good, 8' 26 , 10 METs Blood Pressure Response: Normal Rhythm: PVCs at rest and occasional APCs during exercise ST - Response: non-diagnostic ST depression, <1 mm V5-V6 Patient Response: no symptoms Interpretation: Exercise to 8' 26 on the Cachorro protocol, achieving 10 METs. No symptoms and EKG demonstrated non-diagnostic ST depression of <1 mm in leads V5-V6 only at peak exercise.
== END 2025-09-28 08:47 | disposition home or self-care (01) ==
LOC: CARD 08:46
PROVIDERS: PCP Family Medicine; Visit Provider Internal Medicine Cardiovascular Disease
DX: I48.0 Paroxysmal atrial fibrillation (principal); R94.31 Abnormal electrocardiogram [ECG] [EKG]
CPT/HCPCS: 78452; 93017; A9500